=== PATIENT | male | born 1950 | race Caucasian/White ===

== ENCOUNTER 2016-05-17 11:21 | Emergency (ER) | payer MEDICARE ==
[~2016-05-17] VITALS: Ht 165.1 cm; Wt 63.5 kg
[2016-05-17] MEDS ORDERED: IPRATRPIUM/ALBUTEROL 0.5/2.5MG 3 ML NEBU. NEB ONE (12:15)
--- NOTE | 2016-05-17 12:19 | RAD ---
Portable chest, 05/18/1999 713: History: Cough, shortness of breath, chest pain Comparison is made to a study from 03/13/2008. The heart size and pulmonary vascularity are normal. There is calcific plaquing of the aorta. No pulmonary infiltrates are seen. There is no evidence of pleural fluid. IMPRESSION: No acute cardiopulmonary abnormality is detected.
[2016-05-17 12:22] LABS: BASO % 0 % (0-3); EOS % 7 % (0-3); HEMATOCRIT 53.6 % (39.0-53.0); HEMOGLOBIN 17.8 g/dL (13.0-17.5); LYMPH # 3.4 x10^3/uL (1.0-4.8); LYMPH % 36 % (24-48); MEAN CORPUSCULAR HEMOGLOBIN 29 pg (25-35); MEAN CORPUSCULAR HGB CONC 33 g/dL (31-37); MEAN CORPUSCULAR VOLUME 89 fL (79-100); MONO % 10 % (0-9); NEUT % 48 % (31-73); PLATELET COUNT 263 x10^3/uL (140-400); RED BLOOD COUNT 6.05 x10^6/uL (4.30-5.70); RED CELL DISTRIBUTION WIDTH 14.7 % (11.5-14.5); WHITE BLOOD COUNT 9.6 x10^3/uL (4.0-11.0)
[2016-05-17 12:30] VITALS: BP 161/78
[2016-05-17] MEDS ORDERED: PREDNISONE 20 MG TABLET PO ONE (12:30)
[2016-05-17 12:35] LABS: CALCIUM 9.4 mg/dL (8.5-10.1); CREATININE 0.8 mg/dL (0.7-1.3); GFR 96.4; POTASSIUM 4.7 mmol/L (3.5-5.1)
[2016-05-17 12:40] LABS: ALBUMIN 3.6 g/dL (3.4-5.0); DIRECT BILIRUBIN 0.1 mg/dL (0.0-0.2); TOTAL BILIRUBIN 0.4 mg/dL (0.2-1.0)
[2016-05-17] MEDS ORDERED: PRED50TA PO (13:02)
--- NOTE | 2016-05-17 13:02 | PHYS DOC ---
Past Medical History Past Medical History: COPD, High Cholesterol, Hypertension Past Surgical History: Other Additional Past Surgical Histo: stent in L leg Alcohol Use: None Drug Use: None Adult General Chief Complaint Chief Complaint: SHORTNESS OF BREATH HPI HPI 65-year-old male presenting to the emergency department today with shortness of breath. Severe present for approximately 2-3 weeks however has worsened over the last 2-3 days. He has been trying his albuterol at home with mild relief. It is worse with exertion. Associated with changing of the weather. He denies having chest pain currently however has had intermittent chest pain over the past 2 days. It is sharp and worse with coughing. Nonradiating. Review of systems is negative for abdominal pain nausea vomiting diaphoresis. All other review of systems is negative unless otherwise noted in history of present illness. Review of Systems Review of Systems SEE ABOVE. Current Medications Current Medications Current Medications Medications (Trade) Dose Ordered Sig/Wiliam Start Time Stop Time Status Last Admin Dose Admin Albuterol/ Ipratropium (Duoneb) 3 ml 1X ONCE 05/17/16 12:15 05/17/16 12:16 DC 05/17/16 12:17 3 ML Prednisone (Prednisone) 50 mg 1X ONCE 05/17/16 12:30 05/17/16 12:31 DC 05/17/16 12:30 50 MG Allergies Allergies Allergies Uncoded Allergies Type Severity Reaction Last Updated Verified some sinus medicine Allergy Severe "stopped breathing" 05/17/16 Physical Exam Physical Exam Constitutional: Well developed, well nourished, no acute distress, non-toxic appearance. HENT: Normocephalic, atraumatic, bilateral external ears normal, oropharynx moist, no oral exudates, nose normal. [] Eyes: PERRLA, EOMI, conjunctiva normal, no discharge. Neck: Normal range of motion, no tenderness, supple, no stridor. [] Cardiovascular:Heart rate regular rhythm, no murmur [] Lungs & Thorax: Wheezing bilaterally with a prolonged expiratory phase. No crackles. Abdomen: Bowel sounds normal, soft, no tenderness, no masses, no pulsatile masses. Skin: Warm, dry, no erythema, no rash. [] Back: No tenderness, no CVA tenderness. [] Extremities: No tenderness, no cyanosis, no clubbing, ROM intact, no edema. Neurologic: Alert and oriented X 3, normal motor function, normal sensory function, no focal deficits noted. Psychologic: Affect normal, judgement normal, mood normal. [] Current Patient Data Vital Signs Vital Signs Date Time Temp Pulse Resp B/P Pulse Ox O2 Delivery O2 Flow Rate FiO2 05/17/16 12:30 76 20 161/78 94 Room Air 05/17/16 11:27 97.9 97.9 Lab Values Laboratory Tests Test 05/17/16 12:11 White Blood Count 9.6x10^3/uL (4.0-11.0) Red Blood Count 6.05x10^6/uL (4.30-5.70) H Hemoglobin 17.8g/dL (13.0-17.5) H Hematocrit 53.6% (39.0-53.0) H Mean Corpuscular Volume 89fL (79-100) Mean Corpuscular Hemoglobin 29pg (25-35) Mean Corpuscular Hemoglobin Concent 33g/dL (31-37) Red Cell Distribution Width 14.7% (11.5-14.5) H Platelet Count 263x10^3/uL (140-400) Neutrophils (%) (Auto) 48% (31-73) Lymphocytes (%) (Auto) 36% (24-48) Monocytes (%) (Auto) 10% (0-9) H Eosinophils (%) (Auto) 7% (0-3) H Basophils (%) (Auto) 0% (0-3) Neutrophils # (Auto) 4.6x10^3uL (1.8-7.7) Lymphocytes # (Auto) 3.4x10^3/uL (1.0-4.8) Monocytes # (Auto) 0.9x10^3/uL (0.0-1.1) Eosinophils # (Auto) 0.7x10^3/uL (0.0-0.7) Basophils # (Auto) 0.0x10^3/uL (0.0-0.2) Sodium Level 142mmol/L (136-145) Potassium Level 4.7mmol/L (3.5-5.1) Chloride Level 103mmol/L (98-107) Carbon Dioxide Level 32mmol/L (21-32) Anion Gap 7 (6-14) Blood Urea Nitrogen 21mg/dL (8-26) Creatinine 0.8mg/dL (0.7-1.3) Estimated GFR (Cockcroft-Gault) 96.4 Glucose Level 94mg/dL (70-99) Calcium Level 9.4mg/dL (8.5-10.1) Total Bilirubin 0.4mg/dL (0.2-1.0) Direct Bilirubin 0.1mg/dL (0.0-0.2) Aspartate Amino Transferase (AST) 30U/L (15-37) Alanine Aminotransferase (ALT) 29U/L (16-63) Alkaline Phosphatase 73U/L (46-116) Troponin I Quantitative < 0.017ng/mL (0.000-0.055) QG-Eoq-Z-Type Natriuretic Peptide 24pg/mL (0-124) Total Protein 7.0g/dL (6.4-8.2) Albumin 3.6g/dL (3.4-5.0) Lipase 123U/L (73-393) Laboratory Tests 05/17/16 12:11 Laboratory Tests 05/17/16 12:11 EKG EKG []EKG shows sinus rhythm with regular rate. Normal intervals. Normal axis. ST segments are congruent. Not suggestive of ACS. Reviewed by myself. Radiology/Procedures Radiology/Procedures [] Course & Med Decision Making Course & Med Decision Making Pertinent Labs and Imaging studies reviewed. (See chart for details) [] 65-year-old male presenting to the emergency department with shortness of breath signs and symptoms suggestive of COPD exacerbation. Initially the patient 's vital signs afebrile. Otherwise unremarkable other than mild hypertension. Pertinent physical exam shows wheezing bilaterally with prolonged expiratory phase. The patient was given duo nebs in the emergency department. On reevaluation the patient had improved significantly. He was also given oral prednisone in the emergency department. He was subsequent discharged home with a small burst of prednisone to follow-up with his PCP over the next 2-3 days. Dragon Disclaimer Dragon Disclaimer This electronic medical record was generated, in whole or in part, using a voice recognition dictation system. Departure Departure Impression: Primary Impression: COPD exacerbation Disposition: HOME, SELF-CARE Condition: STABLE Referrals: NO PCP (PCP) TAMEKA WEBER MD Patient Instructions: Chronic Obstructive Pulmonary Disease Exacerbation Additional Instructions: Thank you for allowing us to participate in your care today. Followup with your primary care physician in 3 days if your symptoms do not improve. If you do not have a primary care provider you can ask for a list of our primary care providers. Return to the emergency department you have any new or concerning findings. This should be evaluated by the primary care physician and any necessary consulting services for continued management within a few days after discharge. Return to emergency room if you have any new or concerning symptoms including but not limited to fever, chills, nausea, vomiting, intractable pain, any new rashes, chest pain, shortness of air, uncontrolled bleeding, difficulty breathing, and/or vision loss. Scripts Prednisone 50 Mg [id number] Mg PO DAILY #5 TAB Prov:DAMI MORRIS MD 05/17/16 DAMI MORRIS MD May 17, 2016 13:02
--- NOTE | 2016-05-17 14:23 | EKG ---
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
== END 2016-05-17 13:09 | disposition home or self-care (01) ==
LOC: ER 11:21
DX: J44.1 Chronic obstructive pulmonary disease with (acute) exacerbation (principal); E78.00 Pure hypercholesterolemia, unspecified; I10 Essential (primary) hypertension; Z88.8 Allergy status to other drugs, medicaments and biological substances
CPT/HCPCS: 36415; 71010; 80048; 80076; 83690; 83880; 84484; 85027; 93005; 94250; 94640; 99285; J7512; J7620

== ENCOUNTER 2016-05-25 18:26 | Emergency (ER) | payer MEDICARE ==
[~2016-05-25] VITALS: Ht 165.1 cm; Wt 65.8 kg
[~2016-05-25 18:26] MED LIST: PRED50TA PO
[2016-05-25 18:45] VITALS: BP 143/87
--- NOTE | 2016-05-25 19:06 | PHYS DOC ---
Past Medical History Past Medical History: COPD, High Cholesterol, Hypertension Past Surgical History: Other Additional Past Surgical Histo: stent in L leg Alcohol Use: None Drug Use: None Adult General Chief Complaint Chief Complaint: LACERATION/AVULSION HPI HPI Patient is a 65 year old male who presents emergency Department with complaint of a laceration to his left hand by slab grinder that occurred approximately 2 hours prior to arrival. Patient denies any additional injuries at this time. He does not remember the last time he had a tetanus shot. Of incidental note, patient is a smoker. He has a history of COPD. He states that he should be on oxygen at home but ran out of oxygen. He states that his primary care doctor used to be [facility] but he has not gone back to her for quite some time. Patient was seen here last week with problems with COPD. He states that he just continues to smoke he denies been advised not to. As far as patient's left hand is concerned, he denies any numbness or tingling. Review of Systems Review of Systems Constitutional: Denies fever or chills [] Eyes: Denies change in visual acuity, redness, or eye pain [] HENT: Denies nasal congestion or sore throat [] Respiratory: Denies cough or shortness of breath [] Cardiovascular: No additional information not addressed in HPI [] GI: Denies abdominal pain, nausea, vomiting, bloody stools or diarrhea [] : Denies dysuria or hematuria [] Musculoskeletal: Denies back pain or joint pain [] Integument: Denies rash or skin lesions [] Neurologic: Denies headache, focal weakness or sensory changes [] Endocrine: Denies polyuria or polydipsia [] Current Medications Current Medications Current Medications Medications (Trade) Dose Ordered Sig/Wiliam Start Time Stop Time Status Last Admin Dose Admin Albuterol/ Ipratropium (Duoneb) 3 ml 1X ONCE 05/25/16 19:15 05/25/16 19:16 DC 05/25/16 19:17 3 ML Diphtheria/ Tetanus/Acell Pertussis (Boostrix) 0.5 ml ONCE ONCE 05/25/16 19:15 05/25/16 19:16 DC 05/25/16 19:12 0.5 ML Lidocaine/Sodium Bicarbonate (Buffered Lidocaine 1%) 20 ml 1X ONCE 05/25/16 19:15 05/25/16 19:16 DC 05/25/16 19:09 20 ML Prednisone (Prednisone) 50 mg 1X ONCE 05/25/16 19:15 05/25/16 19:16 DC 05/25/16 19:10 50 MG Allergies Allergies Allergies Uncoded Allergies Type Severity Reaction Last Updated Verified some sinus medicine Allergy Severe "stopped breathing" 05/17/16 Physical Exam Physical Exam Constitutional: Well developed, well nourished, no acute distress, non-toxic appearance. [] HENT: Normocephalic, atraumatic, bilateral external ears normal, oropharynx moist, no oral exudates, nose normal. [] Eyes: PERRLA, EOMI, conjunctiva normal, no discharge. [] Neck: Normal range of motion, no tenderness, supple, no stridor. [] Cardiovascular:Heart rate regular rhythm, no murmur [] Lungs & Thorax: Patient shows no evidence of respiratory fatigue. He is able speak in full sentences. He is on oxygen at this time with an SaO2 of 96%. Patient has coarse wheezing in all lung kong. Patient's physical habitus is consistent with someone that has COPD. He smells of cigarette smoke. Abdomen: Bowel sounds normal, soft, no tenderness, no masses, no pulsatile masses. [] Skin: Warm, dry, no erythema, no rash. [] Back: No tenderness, no CVA tenderness. [] Extremities: Left hand with a regular approximately 4 cm laceration to the dorsum that extends into the subcutaneous tissue. There appears to be a superficial extensor tendon that was lacerated as well. Patient is able to extend all 5 of his fingers. He is able to flex all 5 of his fingers at both the PIPJ and DIPJ. There is no active bleeding at this time. Patient reports he does have good sensation to all 5 fingers. Neurologic: Alert and oriented X 3, normal motor function, normal sensory function, no focal deficits noted. [] Psychologic: Affect normal, judgement normal, mood normal. [] Current Patient Data Vital Signs Vital Signs Date Time Temp Pulse Resp B/P Pulse Ox O2 Delivery O2 Flow Rate FiO2 05/25/16 19:25 94 05/25/16 18:45 98.0 91 16 Room Air 98.0 EKG EKG [] Radiology/Procedures Radiology/Procedures Procedure note: 4.5 cm laceration to the dorsum of left hand was anesthetized with buffered 1% lidocaine. Wound was cleansed with Betadine solution and rinsed with copious amounts of saline. Wound was explored for foreign bodies. No foreign bodies were found. Again, there appears to be an extensor tendon the mid and lacerated. However, patient is able to extend his fingers at all PIP and DIPJ's without any difficulty. Wound margins were approximated utilizing 4- O nylon in a simple interrupted fashion of Singler closure. Patient tolerated this procedure well. Course & Med Decision Making Course & Med Decision Making Patient was reevaluated by me post nebulizer treatment. His wheezing had subsided significantly and states that he feels much better after the breathing treatment. We discussed smoking cessation. Patient demonstrates no desire to stop smoking. Patient verbalizes understanding of his need to follow-up with an orthopedic doctor to address the tendon laceration on the back of his hand. I doubt patient will do so. Overall, he does not seem very motivated to care for himself. Dragon Disclaimer Dragon Disclaimer This electronic medical record was generated, in whole or in part, using a voice recognition dictation system. Departure Departure Impression: Primary Impression: COPD exacerbation Additional Impressions: Tendon laceration Laceration of left hand Disposition: HOME, SELF-CARE Condition: IMPROVED Referrals: NO PCP (PCP) SARA FERREIRA MD Patient Instructions: Chronic Obstructive Pulmonary Disease Exacerbation, Easy- to-Read, Laceration Care, Adult, [id number], Smoking Cessation, Tips For Success, Smoking, You Can Quit, [id number], Tendon Injury Additional Instructions: 1. Take the medications as prescribed. Use your nebulizer at home every 6 hours as needed for shortness of breath and wheezing. 2. Review the discharge instructions provided for self-care and reasons to return to the emergency department. 3. Call the orthopedic doctors number listed in this paperwork to schedule follow-up appointment to address your tendon injury. If you choose not to do so , then the stitches need to be removed in 10 days. 4. Use the pamphlet provided for assistance in finding a primary care doctor to address your medical concerns. Scripts Hydrocodone/Apap 5-325 ([place] 5-325 Tablet)1 Each Tablet1 Tab PO PRN Q6HRS PRN PAIN #10 TAB Ref 0 Prov:ALEKSANDRA HERNANDEZ 05/25/16 Prednisone 10 Mg [id number] Mg PO UD PREDNISONE TAPER #39 TAB Ref 0 Take 3 tablets by mouth twice a day for 3 days, then take 2 tablets by mouth twice a day for 3 days, then take 1 tablet by mouth twice a day for 3 days, then take 1 tablet by mouth daily x 3 days, then stop. Prov:ALEKSANDRA HERNANDEZ 05/25/16 Cephalexin 500 Mg Capsule1 Cap PO TID #30 CAP Prov:ALEKSANDRA HERNANDEZ 05/25/16 Problem Qualifiers ALEKSANDRA HERNANDEZ May 25, 2016 19:06
[2016-05-25] MEDS ORDERED: DIPHTH,PERTUSS(ACELL),TET TOX 0.5 ML DISP.SYRIN. VAX IM ONE (19:15)
[2016-05-25] MEDS ORDERED: PREDNISONE 10 MG TABLET PO ONE (19:15)
[2016-05-25] MEDS ORDERED: LIDOCAINE 1% / SOD BICARB 8.4% 20 ML VIAL. IJ ONE (19:15)
[2016-05-25] MEDS ORDERED: IPRATRPIUM/ALBUTEROL 0.5/2.5MG 3 ML NEBU. NEB ONE (19:15)
[2016-05-25] MEDS ORDERED: CEPH500C PO (20:08)
[2016-05-25] MEDS ORDERED: HYDR-971 PO (20:08)
[2016-05-25] MEDS ORDERED: PRED-220 PO (20:08)
== END 2016-05-25 20:19 | disposition home or self-care (01) ==
LOC: ER 18:26
DX: S66.922A Laceration of unspecified muscle, fascia and tendon at wrist and hand level, left hand, initial encounter (principal); J44.1 Chronic obstructive pulmonary disease with (acute) exacerbation; I10 Essential (primary) hypertension; E78.00 Pure hypercholesterolemia, unspecified; F17.200 Nicotine dependence, unspecified, uncomplicated; Z99.81 Dependence on supplemental oxygen; Z88.8 Allergy status to other drugs, medicaments and biological substances; W26.8XXA Contact with other sharp object(s), not elsewhere classified, initial encounter; Y93.89 Activity, other specified; Y92.89 Other specified places as the place of occurrence of the external cause; Y99.8 Other external cause status
CPT/HCPCS: 12002; 90471; 90715; 94640; 99284; J7512; J7620

== ENCOUNTER 2016-06-17 04:54 | Emergency (ER) | payer MEDICARE ==
[~2016-06-17] VITALS: Ht 175.3 cm; Wt 65.8 kg
[~2016-06-17 04:54] MED LIST changes: +CEPH500C PO; +HYDR-971 PO; +PRED-220 PO
[2016-06-17 05:00] VITALS: BP 170/84
[2016-06-17 05:27] LABS: BASO # 0.1 x10^3/uL (0.0-0.2); BASO % 1 % (0-3); EOS % 5 % (0-3); HEMATOCRIT 46.3 % (39.0-53.0); HEMOGLOBIN 15.7 g/dL (13.0-17.5); LYMPH # 3.3 x10^3/uL (1.0-4.8); LYMPH % 29 % (24-48); MEAN CORPUSCULAR HEMOGLOBIN 30 pg (25-35); MEAN CORPUSCULAR HGB CONC 34 g/dL (31-37); MEAN CORPUSCULAR VOLUME 89 fL (79-100); MONO % 7 % (0-9); NEUT % 59 % (31-73); PLATELET COUNT 245 x10^3/uL (140-400); RED BLOOD COUNT 5.23 x10^6/uL (4.30-5.70); RED CELL DISTRIBUTION WIDTH 15.3 % (11.5-14.5); WHITE BLOOD COUNT 11.7 x10^3/uL (4.0-11.0)
[2016-06-17 05:36] LABS: CALCIUM 8.7 mg/dL (8.5-10.1); CREATININE 0.9 mg/dL (0.7-1.3); GFR 83.9; POTASSIUM 3.8 mmol/L (3.5-5.1)
[2016-06-17] MEDS ORDERED: IPRATRPIUM/ALBUTEROL 0.5/2.5MG 3 ML NEBU. NEB ONE ×2 (05:45)
[2016-06-17] MEDS ORDERED: methylPREDNISolone SOD SUCC PF 125 MG/2 ML VIAL. IV ONE (05:45)
[2016-06-17] MEDS ORDERED: PRED50TA PO (06:12)
[2016-06-17] MEDS ORDERED: PROAIR HFA8.5 GM INH (06:12)
--- NOTE | 2016-06-17 06:12 | PHYS DOC ---
Past Medical History Past Medical History: COPD, High Cholesterol, Hypertension Past Surgical History: Other Additional Past Surgical Histo: stent in L leg Alcohol Use: None Drug Use: None Adult General Chief Complaint Chief Complaint: SHORTNESS OF BREATH HPI HPI 66-year-old male who's having worsening shortness breath for the last month who states it worsened tonight. He states his symptoms are worse when he is asleep and he has awoken multiple times short of air. He denies any chest pain. He does state he has history of COPD but is currently not taking any medications. He does not have a primary care doctor. He states he smokes a pack a day. Review of Systems Review of Systems Constitutional: Denies fever or chills [] Eyes: Denies change in visual acuity, redness, or eye pain [] HENT: Denies nasal congestion or sore throat [] Respiratory: Denies cough, has shortness of breath [] Cardiovascular: No additional information not addressed in HPI [] GI: Denies abdominal pain, nausea, vomiting, bloody stools or diarrhea [] : Denies dysuria or hematuria [] Musculoskeletal: Denies back pain or joint pain [] Integument: Denies rash or skin lesions [] Neurologic: Denies headache, focal weakness or sensory changes [] Endocrine: Denies polyuria or polydipsia [] Current Medications Current Medications Current Medications Medications (Trade) Dose Ordered Sig/Wiliam Start Time Stop Time Status Last Admin Dose Admin Albuterol/ Ipratropium (Duoneb) 3 ml 1X ONCE 06/17/16 05:45 06/17/16 05:46 DC 06/17/16 05:44 3 ML Methylprednisolone Sodium Succinate (Solu-Medrol 125mg Vial) 125 mg 1X ONCE 06/17/16 05:45 06/17/16 05:46 DC 06/17/16 05:43 125 MG Allergies Allergies Allergies Uncoded Allergies Type Severity Reaction Last Updated Verified some sinus medicine Allergy Severe "stopped breathing" 05/17/16 Physical Exam Physical Exam Constitutional: Well developed, well nourished, no acute distress, non-toxic appearance. [] HENT: Normocephalic, atraumatic, bilateral external ears normal, oropharynx moist, no oral exudates, nose normal. [] Eyes: PERRLA, EOMI, conjunctiva normal, no discharge. [] Neck: Normal range of motion, no tenderness, supple, no stridor. [] Cardiovascular:Heart rate regular rhythm, no murmur [] Lungs & Thorax: Slight expiratory wheezing bilaterally with no acute respiratory distress [] Abdomen: Bowel sounds normal, soft, no tenderness, no masses, no pulsatile masses. [] Skin: Warm, dry, no erythema, no rash. [] Back: No tenderness, no CVA tenderness. [] Extremities: No tenderness, no cyanosis, no clubbing, ROM intact, no edema. [] Neurologic: Alert and oriented X 3, normal motor function, normal sensory function, no focal deficits noted. [] Psychologic: Affect normal, judgement normal, mood normal. [] Current Patient Data Vital Signs Vital Signs Date Time Temp Pulse Resp B/P Pulse Ox O2 Delivery O2 Flow Rate FiO2 06/17/16 05:48 94 Room Air 06/17/16 05:00 97.8 87 22 170/84 97.8 Lab Values Laboratory Tests Test 06/17/16 05:15 White Blood Count 11.7x10^3/uL (4.0-11.0) H Red Blood Count 5.23x10^6/uL (4.30-5.70) Hemoglobin 15.7g/dL (13.0-17.5) Hematocrit 46.3% (39.0-53.0) Mean Corpuscular Volume 89fL (79-100) Mean Corpuscular Hemoglobin 30pg (25-35) Mean Corpuscular Hemoglobin Concent 34g/dL (31-37) Red Cell Distribution Width 15.3% (11.5-14.5) H Platelet Count 245x10^3/uL (140-400) Neutrophils (%) (Auto) 59% (31-73) Lymphocytes (%) (Auto) 29% (24-48) Monocytes (%) (Auto) 7% (0-9) Eosinophils (%) (Auto) 5% (0-3) H Basophils (%) (Auto) 1% (0-3) Neutrophils # (Auto) 6.9x10^3uL (1.8-7.7) Lymphocytes # (Auto) 3.3x10^3/uL (1.0-4.8) Monocytes # (Auto) 0.8x10^3/uL (0.0-1.1) Eosinophils # (Auto) 0.5x10^3/uL (0.0-0.7) Basophils # (Auto) 0.1x10^3/uL (0.0-0.2) Sodium Level 145mmol/L (136-145) Potassium Level 3.8mmol/L (3.5-5.1) Chloride Level 105mmol/L (98-107) Carbon Dioxide Level 34mmol/L (21-32) H Anion Gap 6 (6-14) Blood Urea Nitrogen 27mg/dL (8-26) H Creatinine 0.9mg/dL (0.7-1.3) Estimated GFR (Cockcroft-Gault) 83.9 Glucose Level 129mg/dL (70-99) H Calcium Level 8.7mg/dL (8.5-10.1) Troponin I Quantitative < 0.017ng/mL (0.000-0.055) Laboratory Tests 06/17/16 05:15 Laboratory Tests 06/17/16 05:15 EKG EKG EKG as interpreted by me shows a sinus rhythm with rate of 64 bpm. There are no acute ST findings. Intervals are normal. Radiology/Procedures Radiology/Procedures One view of the chest as interpreted by me shows what appears to be COPD changes but no acute findings. Course & Med Decision Making Course & Med Decision Making Pertinent Labs and Imaging studies reviewed. (See chart for details) This 66-year-old male who's having worsening of his COPD was given multiple breathing treatments and a dose of Solu-Medrol with complete improvement of his symptoms. Patient was always saturating in the mid upper 90s on room air with no distress. A prescription for prednisone and albuterol inhaler was provided with instruction to begin smoking cessation and to follow up closely with a primary care doctor. His laboratory workup was unremarkable. Instructions to follow up with a primary doctor were provided. Dragon Disclaimer Dragon Disclaimer This electronic medical record was generated, in whole or in part, using a voice recognition dictation system. Departure Departure Impression: Primary Impression: COPD exacerbation Disposition: 01 HOME, SELF-CARE Admitting Physician: Other Condition: STABLE Referrals: NO PCP (PCP) Patient Instructions: Chronic Obstructive Pulmonary Disease, [id number] Additional Instructions: Please follow up with your primary doctor in the next 2-3 days regarding your recent COPD exacerbation. Take your medications as described. Return to the ER if you develop any worsening of your breathing. Please decrease your amount of smoking as much as possible. Scripts Albuterol Sulfate (Proair Hfa Inhaler)8.5 Gm [id number].[id number] Puff INH PRN Q6HRS PRN SHORTNESS OF BREATH #1 INHALER Ref 0 Prov:UMA BENITES DO 06/17/16 Prednisone 50 Mg Tablet1 Tab PO DAILY #5 TAB Prov:UMA BENITES DO 06/17/16 UMA BENITES DO Jun 17, 2016 06:12
--- NOTE | 2016-06-17 06:30 | EKG ---
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
--- NOTE | 2016-06-17 08:58 | RAD ---
Indication chest pain. A single view of the chest was obtained. Comparison is made to an examination one month earlier. The heart and pulmonary vessels appear normal. The lungs are clear. There has not been a significant change when compared to the previous exam IMPRESSION: No acute or focal process seen in the chest. No significant change
== END 2016-06-17 06:18 | disposition home or self-care (01) ==
LOC: ER 04:54
DX: J44.1 Chronic obstructive pulmonary disease with (acute) exacerbation (principal); F17.200 Nicotine dependence, unspecified, uncomplicated; I10 Essential (primary) hypertension; E78.00 Pure hypercholesterolemia, unspecified
CPT/HCPCS: 36415; 71010; 80048; 84484; 85027; 93005; 94640; 96374; 99285; J2930; J7620

== ENCOUNTER 2016-07-20 06:12 | Emergency (ER) | payer MEDICARE ==
[~2016-07-20] VITALS: Ht 175.3 cm; Wt 65.8 kg
[~2016-07-20 06:12] MED LIST changes: +PROAIR HFA8.5 GM INH
[2016-07-20 06:25] VITALS: BP 171/82
[2016-07-20] MEDS ORDERED: NAPROXEN 250 MG TABLET PO ONE (06:45)
[2016-07-20] MEDS ORDERED: CEPHALEXIN 250 MG CAPSULE. PO ONE (06:45)
[2016-07-20] MEDS ORDERED: CIPROFLOXACIN HCL 250 MG TABLET. PO ONE (06:45)
--- NOTE | 2016-07-20 06:46 | ED.ADGEN ---
Past Medical History Past Medical History: COPD, High Cholesterol, Hypertension Past Surgical History: Other Additional Past Surgical Histo: stent in L leg Alcohol Use: None Drug Use: None Adult General Chief Complaint Chief Complaint: FOOT INJURY PAIN HPI HPI Patient is a 66 year old man, history of COPD, hypertension, hyperlipidemia, who presents to the emergency department complaint of left foot pain and swelling after stepping on a nail at a home improvement store 2 days ago. Patient states that he was wearing the same slippers that he is wearing now, and that the nail went through the sole of his shoe into the lateral aspect of his right foot. He states he did pull the nail out immediately. He states that he has had increased pain and swelling in the foot since that time, denies any drainage or discharge. States that he has pain with ambulation although he is able to ambulate. He has not taken anything for pain since the symptoms began. Denies any fevers or chills, any red streaking, any weakness, numbness, tingling , other injuries, chest pain, shortness of breath or other complaints. His tetanus is up-to-date, last received several months ago after a laceration to his hand. Review of Systems Review of Systems Constitutional: Denies fever or chills. [] Eyes: Denies change in visual acuity. [] HENT: Denies nasal congestion or sore throat. [] Respiratory: Denies cough or shortness of breath. [] Cardiovascular: Denies chest pain or edema. [] GI: Denies abdominal pain, nausea, vomiting, bloody stools or diarrhea. [] : Denies dysuria. [] Musculoskeletal: Denies back pain or joint pain. Pain in the lateral aspect of the left foot, and sole of the left foot. Integument: Denies rash. [] Neurologic: Denies headache, focal weakness or sensory changes. [] Endocrine: Denies polyuria or polydipsia. [] Lymphatic: Denies swollen glands. [] Psychiatric: Denies depression or anxiety. [] Current Medications Current Medications Current Medications Medications (Trade) Dose Ordered Sig/Wiliam Start Time Stop Time Status Last Admin Dose Admin Cephalexin HCl (Keflex) 500 mg 1X ONCE 07/20/16 06:45 07/20/16 06:46 DC 07/20/16 06:49 500 MG Ciprofloxacin (Cipro) 500 mg 1X ONCE 07/20/16 06:45 07/20/16 06:46 DC 07/20/16 06:49 500 MG Naproxen (Naprosyn) 250 mg 1X ONCE 07/20/16 06:45 07/20/16 06:46 DC 07/20/16 06:48 250 MG Allergies Allergies Allergies Uncoded Allergies Type Severity Reaction Last Updated Verified some sinus medicine Allergy Severe "stopped breathing" 05/17/16 Physical Exam Physical Exam Constitutional: Well developed, well nourished, no acute distress, non-toxic appearance. [] HENT: Normocephalic, atraumatic, bilateral external ears normal, oropharynx moist, no oral exudates, nose normal. [] Eyes: PERRLA, EOMI, conjunctiva normal, no discharge. [] Neck: Normal range of motion, no tenderness, supple, no stridor. [] Cardiovascular:Heart rate regular rhythm, no murmur, S1, S2, rubs or gallops. [] Lungs & Thorax: Mild scattered wheezing, no rhonchi, no rales, no chest wall tenderness or crepitus. [] Abdomen: Bowel sounds normal, soft, no tenderness, no masses, no pulsatile masses. [] Skin: Warm, dry, no erythema, no rash. [] Back: No tenderness, no CVA tenderness. [] Extremities: Tenderness to palpation over the lateral aspect of the right foot, there is no puncture wound that I can identify, feet are dirty, when cleaned, no wound identified, no significant swelling, no erythema, no streaking, no fluid collection, no cyanosis, no clubbing, ROM intact, no edema. [] Neurologic: Alert and oriented X 3, normal motor function, normal sensory function, no focal deficits noted. [] Psychologic: Affect normal, judgement normal, mood normal. [] Current Patient Data Vital Signs Vital Signs Date Time Temp Pulse Resp B/P (MAP) Pulse Ox O2 Delivery O2 Flow Rate FiO2 07/20/16 06:25 97.9 76 20 94 Room Air 97.9 EKG EKG Not indicated. [] Radiology/Procedures Radiology/Procedures Foot x-ray: Three-view: Normal soft tissue and bony examination, no evidence of foreign body, gas or fluid collection. As interpreted by me. [] Course & Med Decision Making Course & Med Decision Making Pertinent Labs and Imaging studies reviewed. (See chart for details) Patient's bilateral feet cleaned thoroughly in the emergency department, no puncture wound or evidence of active infection identified externally. X-ray does not reveal any evidence of acute bony or soft tissue normalities, no foreign bodies. However based on the patient's report, the fact it has been several days since injury with high risk potential injury, we'll cover prophylactically with antibiotics. Did discuss this with patient who is in agreement with this plan. First dose of ciprofloxacin and Keflex given in the ED , along with naproxen for discomfort. Patient was also placed in a hard shoe for additional support, as he is wearing slippers that are in poor condition. Discussed the importance of purchasing new and more supportive footwear additionally. Patient voiced understanding with this as well. He was given contact information for Dr. Bowers of podiatry, instructed to follow-up in the next 2-3 days if symptoms persist, and to return to the ED for concerning symptoms as discussed. Patient voiced understanding and agreement with plan and instructions as stated, discharged home with prescription for ciprofloxacin and Keflex, naproxen for discomfort, with plan as above. [] Dragon Disclaimer Dragon Disclaimer This electronic medical record was generated, in whole or in part, using a voice recognition dictation system. Departure Impression: Primary Impression: Foot pain, left Disposition: 01 HOME, SELF-CARE Condition: IMPROVED Scripts Naproxen (NAPROXEN) 250 Mg Tablet 250 MG PO BID Y for PAIN, #10 Prov: SAGE TEJADA DO 07/20/16 Cephalexin (KEFLEX) 500 Mg Capsule 500 MG PO QID, #28 CAP Prov: SAGE TEJADA DO 07/20/16 Ciprofloxacin Hcl (CIPRO) 500 Mg Tablet 500 MG PO BID for 7 Days, TAB 0 Refills Prov: SAGE TEJADA DO 07/20/16 SAGE TEJADA DO July 20, 2016 06:46
[2016-07-20] MEDS ORDERED: CIPR500T94 PO (06:55)
[2016-07-20] MEDS ORDERED: CEPH-264 PO (06:55)
[2016-07-20] MEDS ORDERED: NAPR250T2 PO (06:55)
--- NOTE | 2016-07-20 07:06 | RAD ---
Left foot, 3 views, 07/20/2016: History: Pain, stepped on a nail There is patchy bony demineralization. No fracture or dislocation is identified. No radiopaque foreign body is evident in the soft tissues. IMPRESSION: No acute bony abnormality is detected.
== END 2016-07-20 07:02 | disposition home or self-care (01) ==
LOC: ER 06:12
DX: M79.672 Pain in left foot (principal); J44.9 Chronic obstructive pulmonary disease, unspecified; E78.00 Pure hypercholesterolemia, unspecified; I10 Essential (primary) hypertension; E78.5 Hyperlipidemia, unspecified; Z97.8 Presence of other specified devices; W45.0XXA Nail entering through skin, initial encounter; Y93.89 Activity, other specified; Y92.009 Unspecified place in unspecified non-institutional (private) residence as the place of occurrence of the external cause; Y99.8 Other external cause status
CPT/HCPCS: 73630; 99284

== ENCOUNTER 2016-08-04 05:32 | Emergency (ER) | payer MEDICARE ==
[~2016-08-04] VITALS: Ht 165.1 cm; Wt 65.8 kg
[~2016-08-04 05:32] MED LIST changes: +CEPH-264 PO; +CIPR500T94 PO; +NAPR250T2 PO
[2016-08-04] MEDS ORDERED: IPRATRPIUM/ALBUTEROL 0.5/2.5MG 3 ML NEBU. NEB ONE (06:15)
[2016-08-04 06:37] LABS: BASO # 0.1 x10^3/uL (0.0-0.2); BASO % 1 % (0-3); EOS % 2 % (0-3); HEMATOCRIT 50.4 % (39.0-53.0); HEMOGLOBIN 16.5 g/dL (13.0-17.5); LYMPH # 5.9 x10^3/uL (1.0-4.8); LYMPH % 39 % (24-48); MEAN CORPUSCULAR HEMOGLOBIN 30 pg (25-35); MEAN CORPUSCULAR HGB CONC 33 g/dL (31-37); MEAN CORPUSCULAR VOLUME 91 fL (79-100); MONO % 7 % (0-9); NEUT % 51 % (31-73); PLATELET COUNT 309 x10^3/uL (140-400); RED BLOOD COUNT 5.55 x10^6/uL (4.30-5.70); RED CELL DISTRIBUTION WIDTH 15.6 % (11.5-14.5); WHITE BLOOD COUNT 15.4 x10^3/uL (4.0-11.0)
--- NOTE | 2016-08-04 06:41 | PHYS DOC ---
Past Medical History Past Medical History: COPD, High Cholesterol, Hypertension Past Surgical History: Other Additional Past Surgical Histo: stent in L leg Alcohol Use: None Drug Use: None Adult General Chief Complaint Chief Complaint: SHORTNESS OF BREATH HPI HPI Patient is a 66 year old male who presents with 1 week for chest pain and dyspnea after slip and fall on greasy floor. States he fell onto his front. He has bilateral anterior chest pain, worse with breathing or moving, achy, constant. Has not taken neb this morning for COPD and has some dyspnea. He denies cough, f/c, n/v, palpitations, diaphoresis, exertional symptoms, rash, back pain, headache, vision changes, numbness, tingling, weakness, dizziness. Review of Systems Review of Systems Constitutional: Denies fever or chills [] Eyes: Denies change in visual acuity, redness, or eye pain [] HENT: Denies nasal congestion or sore throat [] Respiratory: Denies cough [] Cardiovascular: No additional information not addressed in HPI [] GI: Denies abdominal pain, nausea, vomiting, bloody stools or diarrhea [] : Denies dysuria or hematuria [] Musculoskeletal: Denies back pain or joint pain [] Integument: Denies rash or skin lesions [] Neurologic: Denies headache, focal weakness or sensory changes [] Endocrine: Denies polyuria or polydipsia [] Current Medications Current Medications Current Medications Medications (Trade) Dose Ordered Sig/[facility] Start Time Stop Time Status Last Admin Dose Admin Albuterol/ Ipratropium (Duoneb) 3 ml 1X ONCE 08/04/16 06:15 08/04/16 06:16 DC 08/04/16 06:27 3 ML Ketorolac Tromethamine (Toradol) 10 mg 1X ONCE 08/04/16 07:00 08/04/16 07:01 DC Allergies Allergies Allergies Uncoded Allergies Type Severity Reaction Last Updated Verified some sinus medicine Allergy Severe "stopped breathing" 05/17/16 Physical Exam Physical Exam Constitutional: Well developed, well nourished, no acute distress, non-toxic appearance. [] HENT: Normocephalic, atraumatic, bilateral external ears normal, oropharynx moist, nose normal. [] Eyes: PERRLA, EOMI. [] Neck: Normal range of motion, supple. [] Cardiovascular:Heart rate regular rhythm [] Lungs & Thorax: Bilateral wheezing, normal respiratory effort. Has bilateral anterior chest wall tenderness with no palpable or visual abnormality [] Abdomen: Bowel sounds normal, soft, no tenderness. [] Skin: Warm, dry, no erythema, no rash. [] Back: No tenderness, no CVA tenderness. [] Extremities: No tenderness, ROM intact, no edema. [] Neurologic: Alert and oriented X 3, normal motor function, normal sensory function, no focal deficits noted. [] Psychologic: Affect normal, judgement normal, mood normal. [] Current Patient Data Vital Signs Vital Signs Date Time Temp Pulse Resp B/P (MAP) Pulse Ox O2 Delivery O2 Flow Rate FiO2 08/04/16 06:28 92 Room Air 08/04/16 05:42 97.5 81 20 173/81 (111) 97.5 Lab Values Laboratory Tests Test 08/04/16 05:46 White Blood Count 15.4 x10^3/uL (4.0-11.0) H Red Blood Count 5.55 x10^6/uL (4.30-5.70) Hemoglobin 16.5 g/dL (13.0-17.5) Hematocrit 50.4 % (39.0-53.0) Mean Corpuscular Volume 91 fL (79-100) Mean Corpuscular Hemoglobin 30 pg (25-35) Mean Corpuscular Hemoglobin Concent 33 g/dL (31-37) Red Cell Distribution Width 15.6 % (11.5-14.5) H Platelet Count 309 x10^3/uL (140-400) Neutrophils (%) (Auto) 51 % (31-73) Lymphocytes (%) (Auto) 39 % (24-48) Monocytes (%) (Auto) 7 % (0-9) Eosinophils (%) (Auto) 2 % (0-3) Basophils (%) (Auto) 1 % (0-3) Neutrophils # (Auto) 7.9 x10^3uL (1.8-7.7) H Lymphocytes # (Auto) 5.9 x10^3/uL (1.0-4.8) H Monocytes # (Auto) 1.1 x10^3/uL (0.0-1.1) Eosinophils # (Auto) 0.3 x10^3/uL (0.0-0.7) Basophils # (Auto) 0.1 x10^3/uL (0.0-0.2) Sodium Level 140 mmol/L (136-145) Potassium Level 4.2 mmol/L (3.5-5.1) Chloride Level 102 mmol/L (98-107) Carbon Dioxide Level 34 mmol/L (21-32) H Anion Gap 4 (6-14) L Blood Urea Nitrogen 29 mg/dL (8-26) H Creatinine 1.1 mg/dL (0.7-1.3) Estimated GFR (Cockcroft-Gault) 66.6 Glucose Level 95 mg/dL (70-99) Calcium Level 9.8 mg/dL (8.5-10.1) Troponin I Quantitative < 0.017 ng/mL (0.000-0.055) Laboratory Tests 08/04/16 05:46 Laboratory Tests 08/04/16 05:46 EKG EKG EKG as interpreted by me as normal sinus rhythm, rate 68, no ST-T changes, normal intervals, PAC Radiology/Procedures Radiology/Procedures Chest xray as interpreted by me with no acute cardiopulmonary disease process Course & Med Decision Making Course & Med Decision Making Pertinent Labs and Imaging studies reviewed. (See chart for details) Feeling better after meds here. Lungs CTAB. Discussed symptom management. Return precautions given. He understands and agrees with plan. Dragon Disclaimer Dragon Disclaimer This electronic medical record was generated, in whole or in part, using a voice recognition dictation system. Departure Departure Impression: Primary Impression: Chest pain Additional Impression: COPD (chronic obstructive pulmonary disease) Disposition: 01 HOME, SELF-CARE Condition: STABLE Referrals: NO PCP (PCP) Patient Instructions: Chest Contusion, [id number] Additional Instructions: Use albuterol inhaler as needed for difficulty breathing. Take Tylenol or ibuprofen as needed for moderate pain. Take tramadol as needed for severe pain. Do not drink, drive or operate heavy machinery after taking tramadol as it may make you sleepy. Follow-up with your primary care doctor within one week. Return for any concerns. Scripts Tramadol Hcl (TRAMADOL HCL) 50 Mg Tablet 1 TAB PO PRN Q6HRS Y for PAIN, #6 TAB Prov: Fady LOCKE MD 08/04/16 Albuterol Sulfate (PROAIR HFA INHALER) 8.5 Gm Hfa.aer.ad 2 PUFF INH Q4HRS Y for SHORTNESS OF BREATH, #1 INHALER 0 Refills Prov: Fady LOCKE MD 08/04/16 Problem Qualifiers Primary Impression: Chest pain Chest pain type: unspecified Qualified Codes: R07.9 - Chest pain, unspecified Additional Impression: COPD (chronic obstructive pulmonary disease) COPD type: unspecified COPD Qualified Codes: J44.9 - Chronic obstructive pulmonary disease, unspecified Fady LOCKE MD Aug 04, 2016 06:41
[2016-08-04 06:43] LABS: CALCIUM 9.8 mg/dL (8.5-10.1); CREATININE 1.1 mg/dL (0.7-1.3); GFR 66.6; POTASSIUM 4.2 mmol/L (3.5-5.1)
--- NOTE | 2016-08-04 06:53 | EKG ---
[facility] [address] [place] [address] Test Date: 2016-08-04 Test Time: 05:44:43 Pat Name: CEDRIC BARBA Department: Room: Gender: M [employer]: : 1950 Requested By: Fady LOCKE Order Number: [id number] Reading MD: Kaleigh Ramierz Measurements Intervals [place] Rate: 68 P: 104 [place]: 136 QRS: 70 QRSD: 82 T: 66 QT: 364 QTc: 391 Interpretive Statements SINUS RHYTHM ATRIAL PREMATURE COMPLEX(ES) QRS(T) CONTOUR ABNORMALITY CONSIDER ANTEROLATERAL MYOCARDIAL DAMAGE POSSIBLY ABNORMAL ECG RI6.01 Compared to ECG 06/17/2016 05:12:47 No significant changes Electronically Signed On 08-07-2016 18:43:18 CDT by Kaleigh Ramirez
[2016-08-04 07:00] VITALS: BP 145/70
[2016-08-04] MEDS ORDERED: KETOROLAC 15 MG/ML VIAL. IV ONE (07:00)
[2016-08-04] MEDS ORDERED: PROAIR HFA8.5 GM INH (07:11)
[2016-08-04] MEDS ORDERED: TRAM50TA PO (07:11)
--- NOTE | 2016-08-04 07:30 | RAD ---
Indication chest pain. Shortness of breath. PA and lateral views of the chest were obtained. Note is made of a previous examination 06/17/2016. The heart and pulmonary vessels appear normal. The lungs are clear of acute infiltrates. There is suggested mild hyperexpansion. There is no pleural fluid. There is no pneumothorax. On the lateral view, just behind the sternum, is a well-defined nodule. This was probably present on a study March 13, 2008. Follow-up imaging with CT should be considered. IMPRESSION: No acute finding in the chest. Probable stable nodule on the lateral view. See above discussion
== END 2016-08-04 07:31 | disposition home or self-care (01) ==
LOC: ER 05:32
DX: R07.89 Other chest pain (principal); J44.9 Chronic obstructive pulmonary disease, unspecified; E78.00 Pure hypercholesterolemia, unspecified; I10 Essential (primary) hypertension; Z88.8 Allergy status to other drugs, medicaments and biological substances
CPT/HCPCS: 36415; 71020; 80048; 84484; 85027; 93005; 94640; 96374; 99285; J1885; J7620

== ENCOUNTER 2016-08-14 09:42 | Inpatient (IN) | payer BC, MEDICARE ==
[~2016-08-14] VITALS: Ht 175.3 cm; Wt 64.9 kg
[~2016-08-14 09:42] MED LIST changes: +TRAM50TA PO
[2016-08-14] MEDS ORDERED: MORPHINE SULFATE 4 MG/ML DISP.SYRIN. IV/SQ PRN (10:00)
[2016-08-14] MEDS ORDERED: ALBUTEROL SULFATE 2.5 MG/3 ML NEBU. INH ONE (10:00)
[2016-08-14] MEDS ORDERED: methylPREDNISolone SOD SUCC PF 125 MG/2 ML VIAL. IV ONE (10:00)
[2016-08-14] MEDS ORDERED: IPRATRPIUM/ALBUTEROL 0.5/2.5MG 3 ML NEBU. NEB ONE (10:00)
[2016-08-14] MEDS ORDERED: ASPIRIN 325 MG TABLET PO ONE (10:00)
[2016-08-14 10:06] LABS: RED BLOOD COUNT 5.97 x10^6/uL (4.30-5.70); WHITE BLOOD COUNT 13.5 x10^3/uL (4.0-11.0)
[2016-08-14 10:07] LABS: BASO # 0.3 x10^3/uL (0.0-0.2); BASO % 2 % (0-3); EOS % 3 % (0-3); LYMPH # 3.1 x10^3/uL (1.0-4.8); LYMPH % 23 % (24-48); MEAN CORPUSCULAR HEMOGLOBIN 30 pg (25-35); MEAN CORPUSCULAR HGB CONC 33 g/dL (31-37); MEAN CORPUSCULAR VOLUME 91 fL (79-100); MONO % 7 % (0-9); NEUT % 65 % (31-73); PLATELET COUNT 312 x10^3/uL (140-400); RED CELL DISTRIBUTION WIDTH 15.5 % (11.5-14.5)
--- NOTE | 2016-08-14 10:09 | RAD ---
EXAM: Chest one view. HISTORY: Chest pain. COMPARISON: 08/04/2016. FINDINGS: A frontal view of the chest is obtained. There are no confluent infiltrates. There is no pneumothorax or pleural effusion. The heart is not enlarged. There are atherosclerotic calcifications of the aorta. Bilateral glenohumeral osteoarthritis appears mild to moderate. There are small shrapnel fragments in the left proximal humerus. IMPRESSION: 1. No confluent infiltrates.
[2016-08-14 10:13] LABS: CALCIUM 9.2 mg/dL (8.5-10.1); GFR 74.3; POTASSIUM 5.6 mmol/L (3.5-5.1)
[2016-08-14 10:19] LABS: ALBUMIN 3.4 g/dL (3.4-5.0); TOTAL BILIRUBIN 0.3 mg/dL (0.2-1.0); TOTAL PROTEIN 6.9 g/dL (6.4-8.2)
[2016-08-14 11:11] LABS: INR 0.9 (0.8-1.1); PROTHROMBIN TIME PATIENT 11.4 SEC (11.7-14.0)
[2016-08-14 11:55] VITALS: BP 137/70
--- NOTE | 2016-08-14 12:20 | EKG ---
[facility] [address] [place] [address] Test Date: 2016-08-14 Test Time: 09:46:22 Pat Name: CEDRIC BARBA Department: Room: 260 1 Gender: M [employer]: : 1950 Requested By: JACY ANN Order Number: [id number] Reading MD: Jason Pineda Measurements Intervals [place] Rate: 95 P: 71 [place]: 138 QRS: 62 QRSD: 76 T: 65 QT: 312 QTc: 395 Interpretive Statements SINUS RHYTHM NONSPECIFIC ST-T WAVE CHANGES. RI6.01 Compared to ECG 08/04/2016 05:44:43 No significant changes Electronically Signed On 08-16-2016 10:52:28 CDT by Jason Pineda
[2016-08-14] MEDS ORDERED: ACETAMINOPHEN 325 MG TABLET. PO PRN (12:30)
[2016-08-14] MEDS ORDERED: ONDANSETRON PF 4 MG/2 ML VIAL. IV PRN (12:30)
[2016-08-14] MEDS ORDERED: NITROGLYCERIN SUBLINGUAL 0.4 MG BOTTLE OF 25. SL PRN (12:30)
[2016-08-14] MEDS ORDERED: MORPHINE SULFATE 4 MG/ML DISP.SYRIN. IV PRN (12:30)
[2016-08-14] MEDS ORDERED: IPRATRPIUM/ALBUTEROL 0.5/2.5MG 3 ML NEBU. NEB SCH (13:00)
[2016-08-14] MEDS: IV NORMAL SALINE 1000ML BAG 1,000 ML IV SCH ×2 (13:27→22:49)
[2016-08-14] MEDS ORDERED: LISI-334 PO (13:29)
[2016-08-14 15:00] VITALS: BP 118/68
--- NOTE | 2016-08-14 15:19 | PHYS DOC ---
Past Medical History Past Medical History: COPD, High Cholesterol, Hypertension Past Surgical History: Other Additional Past Surgical Histo: stent in L leg Alcohol Use: None Drug Use: None Adult General Chief Complaint Chief Complaint: CHEST PAIN HPI HPI Patient is a 66 year old male who presents with chest pain. The patient reports 1 day history of dry cough & wheezing consistent with usual COPD exacerbation, however today's symptoms differ with associated substernal chest tightness radiating to left arm. He states chest pain began while smoking outdoors. he reports associated shortness of breath, denies nausea or diaphoresis. Denies fevers/chills, lower extremity pain/swelling. History of COPD with previous hospital admission, not on home O2, denies cardiac history. Has PVD s/p peripheral stent to LE, as well as HTN. Current every day smoker. Does not have a PCP. Review of Systems Review of Systems Constitutional: Denies fever or chills Eyes: Denies change in visual acuity HENT: Denies nasal congestion or sore throat Respiratory: Reports cough & shortness of breath Cardiovascular: Reports chest pain, denies edema GI: Denies abdominal pain, nausea, vomiting, bloody stools or diarrhea Musculoskeletal: Denies back pain or joint pain Integument: Denies rash or skin lesions Neurologic: Denies headache, focal weakness or sensory changes Current Medications Current Medications Current Medications Medications (Trade) Dose Ordered Sig/Wiliam Start Time Stop Time Status Last Admin Dose Admin Albuterol Sulfate (Ventolin Neb Soln) 5 mg 1X ONCE 08/14/16 10:00 08/14/16 10:06 DC 08/14/16 10:27 5 MG Albuterol/ Ipratropium (Duoneb) 3 ml 1X ONCE 08/14/16 10:00 08/14/16 10:06 DC 08/14/16 10:28 3 ML Aspirin (Ruthy Aspirin) 325 mg 1X ONCE 08/14/16 10:00 08/14/16 10:01 DC Methylprednisolone Sodium Succinate (SOLU-Medrol 125MG VIAL) 125 mg 1X ONCE 08/14/16 10:00 08/14/16 10:06 DC 08/14/16 10:16 125 MG Morphine Sulfate 4 mg PRN Q15MIN PRN 08/14/16 10:00 08/14/16 17:06 DC 08/14/16 10:16 4 MG Allergies Allergies Allergies Uncoded Allergies Type Severity Reaction Last Updated Verified some sinus medicine Allergy Severe "stopped breathing" 05/17/16 Physical Exam Physical Exam Constitutional: Well developed, well nourished, no acute distress, non-toxic appearance. HENT: Normocephalic, atraumatic, bilateral external ears normal, oropharynx moist, nose normal. Eyes: conjunctiva normal, no discharge. Neck: supple, no stridor. Cardiovascular: RRR, no murmurs, no edema. Lungs & Thorax: coarse throughout with expiratory wheezing, increased work of breathing, breath sounds present in all lung kong, no respiratory distress, no reproducible tenderness with palpation over anterior chest wall.. Abdomen: soft, nontender, nondistended. Skin: Warm, dry, no erythema, no rash. Back: No tenderness. Extremities: No tenderness, no edema. no calf tenderness or swelling. Neurologic: Alert and oriented X 3, no focal deficits noted. Psychologic: Affect normal, judgement normal, mood normal. Current Patient Data Vital Signs Vital Signs Date Time Temp Pulse Resp B/P (MAP) Pulse Ox O2 Delivery O2 Flow Rate FiO2 08/14/16 10:42 Room Air 08/14/16 10:30 95 08/14/16 10:17 82 20 119/78 (92) 08/14/16 09:49 97.6 97.6 Lab Values Laboratory Tests Test 08/14/16 09:48 White Blood Count 13.5 x10^3/uL (4.0-11.0) H Red Blood Count 5.97 x10^6/uL (4.30-5.70) H Hemoglobin 18.0 g/dL (13.0-17.5) H Hematocrit 54.0 % (39.0-53.0) H Mean Corpuscular Volume 91 fL (79-100) Mean Corpuscular Hemoglobin 30 pg (25-35) Mean Corpuscular Hemoglobin Concent 33 g/dL (31-37) Red Cell Distribution Width 15.5 % (11.5-14.5) H Platelet Count 312 x10^3/uL (140-400) Neutrophils (%) (Auto) 65 % (31-73) Lymphocytes (%) (Auto) 23 % (24-48) L Monocytes (%) (Auto) 7 % (0-9) Eosinophils (%) (Auto) 3 % (0-3) Basophils (%) (Auto) 2 % (0-3) Neutrophils # (Auto) 8.8 x10^3uL (1.8-7.7) H Lymphocytes # (Auto) 3.1 x10^3/uL (1.0-4.8) Monocytes # (Auto) 0.9 x10^3/uL (0.0-1.1) Eosinophils # (Auto) 0.4 x10^3/uL (0.0-0.7) Basophils # (Auto) 0.3 x10^3/uL (0.0-0.2) H Prothrombin Time 11.4 SEC (11.7-14.0) L Prothrombin Time INR 0.9 (0.8-1.1) PTT 28 SEC (24-38) Sodium Level 142 mmol/L (136-145) Potassium Level 5.6 mmol/L (3.5-5.1) H Chloride Level 104 mmol/L (98-107) Carbon Dioxide Level 30 mmol/L (21-32) Anion Gap 8 (6-14) Blood Urea Nitrogen 31 mg/dL (8-26) H Creatinine 1.0 mg/dL (0.7-1.3) Estimated GFR (Cockcroft-Gault) 74.3 BUN/Creatinine Ratio 31 (6-20) H Glucose Level 82 mg/dL (70-99) Calcium Level 9.2 mg/dL (8.5-10.1) Total Bilirubin 0.3 mg/dL (0.2-1.0) Aspartate Amino Transferase (AST) 44 U/L (15-37) H Alanine Aminotransferase (ALT) 38 U/L (16-63) Alkaline Phosphatase 97 U/L (46-116) Troponin I Quantitative < 0.017 ng/mL (0.000-0.055) UK-Xlt-P-Type Natriuretic Peptide 17 pg/mL (0-124) Total Protein 6.9 g/dL (6.4-8.2) Albumin 3.4 g/dL (3.4-5.0) Albumin/Globulin Ratio 1.0 (1.0-1.7) Laboratory Tests 08/14/16 09:48 Laboratory Tests 08/14/16 09:48 EKG EKG Interpreted by me: Normal sinus rhythm rate 95, no acute ST or T wave changes, normal intervals, no ectopy. [] Radiology/Procedures Radiology/Procedures PROCEDURE: CHEST AP ONLY EXAM: Chest one view. HISTORY: Chest pain. COMPARISON: 08/04/2016. FINDINGS: A frontal view of the chest is obtained. There are no confluent infiltrates. There is no pneumothorax or pleural effusion. The heart is not enlarged. There are atherosclerotic calcifications of the aorta. Bilateral glenohumeral osteoarthritis appears mild to moderate. There are small shrapnel fragments in the left proximal humerus. IMPRESSION: 1. No confluent infiltrates. DICTATED and SIGNED BY: TJ TORRES MD DATE: 08/14/16 1005[] Course & Med Decision Making Course & Med Decision Making Pertinent Labs and Imaging studies reviewed. (See chart for details) The patient presents with COPD exacerbation & chest pain. Gave aspirin, pain medication, solumedrol, breathing treatments. Wheezing improved but he had some persistent chest tightness. Labs & EKG show no acute cardiac or additional pulmonary process. K+ elevated, appears dehydrated, discussed with Dr. Polk, will hydrate & repeat labs. Recommended admission to the hospital for further evaluation & treatment. He agrees with plan of care. Discussed with Dr. Polk who agrees to admit to inpatient status, cardiology consult to Dr. Elmore & pulmonary consult to Dr. Farrell. The patient is admitted in stable condition. [] Dragon Disclaimer Dragon Disclaimer This electronic medical record was generated, in whole or in part, using a voice recognition dictation system. Departure Departure Impression: Primary Impression: Chest pain Additional Impressions: COPD exacerbation Hyperkalemia Disposition: ADMITTED INPATIENT Admitting Physician: Latonia Polk Condition: STABLE Referrals: NO PCP (PCP) Problem Qualifiers JACY ANN MD Aug 14, 2016 15:19
[2016-08-14] MEDS ORDERED: TIOT18CA IH (15:40)
[2016-08-14] MEDS ORDERED: LIDO:MAALOX:DONNATAL 1:1:1 15 ML SINGLE DOSE SWSW ONE (16:30)
[2016-08-14] MEDS ORDERED: BUDE10.2 IH (16:53)
[2016-08-14] MEDS ORDERED: ALBUTEROL SULFATE 2.5 MG/3 ML NEBU. NEB PRN (17:00)
[2016-08-14] MEDS ORDERED: LISINOPRIL 20 MG TABLET PO SCH (17:00)
[2016-08-14] MEDS ORDERED: NON FORMULARY ITEM (Albuterol Sulfate (Proair Hfa Inhaler) 1 PUFF) INH PRN (17:00)
--- NOTE | 2016-08-14 17:17 | PDOC1 ---
History and Physical Date of Admission Date of Admission DATE: 08/14/16 TIME: 17:08 Identification/Chief Complaint Chief Complaint chest pain, dyspnea Problems: Source Source: Chart review, Patient History of Present Illness History of Present Illness chest pain, multiple factors. he reprots that he fell 1 month ago and struck at table at work, and has had chest pain to his lower ribcage ever since. Also, chest pain after eating, he has been taking Tagamet for that with some improvement but also has some pressure pain with exertion, Past Medical History Cardiovascular: HTN, Other GI: No pertinent hx Psych: No pertinent hx Endocrine: No pertinent hx Dermatology: No pertinent hx Social History Smoke: 1 pack per day ALCOHOL: rare Drugs: None Current Medications Current Medications Current Medications Aspirin (Ruthy Aspirin) 325 mg 1X ONCE PO ; Start 08/14/16 at 10:00; Stop 08/14 at 10:01; Status DC Morphine Sulfate 4 mg PRN Q15MIN PRN IV/SQ PAIN GREATER THAN 3/10 Last administered on 08/14/16 10:16; Start 08/14/16 at 10:00; Stop 08/14/16 at 17:06 ; Status DC Albuterol Sulfate (Ventolin Neb Soln) 5 mg 1X ONCE INH Last administered on 10:27; Start 08/14/16 at 10:00; Stop 08/14/16 at 10:06; Status DC Albuterol/ Ipratropium (Duoneb) 3 ml 1X ONCE NEB Last administered on 10:28; Start 08/14/16 at 10:00; Stop 08/14/16 at 10:06; Status DC Methylprednisolone Sodium Succinate (SOLU-Medrol 125MG VIAL) 125 mg 1X ONCE IV Last administered on 08/14/16 10:16; Start 08/14/16 at 10:00; Stop 08/14/16 at 10:06; Status DC Ondansetron HCl (Zofran) 4 mg PRN Q8HRS PRN IV NAUSEA/VOMITING; Start 08/14/16 at 12:30; Stop 08/15/16 at 12:29 Morphine Sulfate 4 mg PRN Q2HR PRN IV PAIN; Start 08/14/16 at 12:30; Stop 08/15 at 12:29 Acetaminophen (Tylenol) 650 mg PRN Q4HRS PRN PO FEVER; Start 08/14/16 at 12:30 ; Stop 08/15/16 at 12:29 Nitroglycerin (Nitrostat) 0.4 mg PRN Q5MIN PRN SL CHEST PAIN; Start 08/14/16 at 12:30; Stop 08/15/16 at 12:29 Albuterol/ Ipratropium (Duoneb) 3 ml RTQID NEB ; Start 08/14/16 at 13:00; Stop 08/14/16 at 17:06; Status DC Sodium Chloride 1,000 ml @ 100 mls/hr Q10H IV Last administered on 08/14/16t 13:27; Start 08/14/16 at 12:30 Multi-Ingredient Mouthwash/Gargle (Gi Cocktail Single Dose) 15 ml 1X ONCE SWSW ; Start 08/14/16 at 16:30; Stop 08/14/16 at 16:31; Status DC Lisinopril (Prinivil) 20 mg DAILY PO ; Start 08/14/16 at 17:00 Non-Formulary Medication 1 puff PRN Q6HRS PRN INH SHORTNESS OF BREATH; Start at 17:00; Status UNV Non-Formulary Medication 2 puff BID IH ; Start 08/14/16 at 21:00; Status UNV Non-Formulary Medication 1 cap DAILY IH ; Start 08/15/16 at 09:00; Status UNV Albuterol Sulfate (Ventolin Neb Soln) 2.5 mg PRN Q6HRS PRN NEB SHORTNESS OF BREATH; Start 08/14/16 at 17:00 Albuterol/ Ipratropium (Duoneb) 3 ml RTQID NEB ; Start 08/14/16 at 20:00 Budesonide (Pulmicort) 0.5 mg RTBID NEB ; Start 08/14/16 at 20:00; Status UNV Active Scripts Active Proair Hfa Inhaler (Albuterol Sulfate) 8.5 Gm Hfa.aer.ad 1 Puff INH PRN Q6HRS PRN Reported Symbicort 160-4.5 Mcg Inhaler (Budesonide/Formoterol Fumarate) 10.2 Gm Hfa.aer.ad 2 Puff IH BID Spiriva (Tiotropium [place]) 18 Mcg Cap.w.dev 1 Cap IH DAILY Lisinopril 20 Mg Tablet 1 Tab PO DAILY Allergies Allergies: Uncoded Allergies: some sinus medicine (Allergy, Severe, "stopped breathing", 05/17/16) ROS General: YES: Fatigue, No: Chills, Night Sweats, Malaise, Appetite, Other PSYCHOLOGICAL ROS: YES: Sleep disturbances, No: Anxiety, Behavioral Disorder, Concentration difficultie, Decreased libido , Depression, Disorientation, Hallucinations, Hostility, Irritablity, Memory difficulties, Mood Swings, Obsessive thoughts Eyes: No Blurry vision, No Decreased vision, No Double vision, No Dry eyes, No Excessive tearing, No Eye Pain, No Itchy Eyes, No Loss of vision, No Photophobia , No Scotomata, No Uses contacts, No Uses glasses, No Other HEENT: YES: Heacaches, No: Visual Changes, Hearing change, Nasal congestion, Nasal discharge, Oral lesions, Sinus pain, Sore Throat, Epistaxis, Sneezing, Snoring, Tinnitus, Vertigo, Vocal changes, Other Respiratory: YES: SOB with excertion, No: Cough, Hemoptysis, Orthopnea, Pleuritic Pain, Shortness of breath, Sputum Changes, Stridor, Tachypnea, Wheezing, Other Cardiovascular: yes Chest Pain, No Palpitations, No Orthopnea, No Paroxysmal Noc. Dyspnea, No Edema, No Lt Headedness, No Other Gastrointestinal: No Nausea, No Vomiting, No Abdominal Pain, No Diarrhea, No Constipation, No Melena, No Hematochezia, No Other Genitourinary: No Dysuria, No Frequency, No Incontinence, No Hematuria, No Retention, No Discharge, No Urgency, No Pain, No Flank Pain, No Other, No , No , No , No , No , No , No Musculoskeletal: Yes Joint Pain, Yes Joint Stiffness, Yes Pain In: (bilat lower ribs), No Gait Disturbance, No Joint Swelling, No Muscle Pain, No Muscular Weakness , No Swelling In:, No Other Neurological: No Behavorial Changes, No Bowel/Bladder ControlChng, No Confusion , No Dizziness, No Gait Disturbance, No Headaches, No Impaired Coord/balance, No Memory Loss, No Numbness/Tingling, No Seizures, No Speech Problems, No Tremors, No Visual Changes, No Weakness, No Other Skin: No Dry Skin, No Eczema, No Hair Changes, No Lumps, No Mole Changes, No Mottling, No Nail Changes, No Pruritus, No Rash, No Skin Lesion Changes, No Other, No Acne Physical Exam General: Alert, Oriented X3, Cooperative HEENT: Atraumatic, PERRLA Lungs: Other (decreased vol for age, no wheeze, no rales) Heart: S1S2, no murmurs Abdomen: Normal bowel sounds, Soft Extremities: No cyanosis, No edema Skin: No breakdown Neuro: Sensation intact, Cranial nerves 3-12 NL Psych/Mental Status: Mood NL Vitals Vitals Vital Signs Date Time Temp Pulse Resp B/P (MAP) Pulse Ox O2 Delivery O2 Flow Rate FiO2 08/14/16 15:00 97.6 72 20 118/68 (85) 92 Room Air 97.6 Labs Labs Laboratory Tests Test 08/14/16 09:48 White Blood Count 13.5 x10^3/uL (4.0-11.0) Red Blood Count 5.97 x10^6/uL (4.30-5.70) Hemoglobin 18.0 g/dL (13.0-17.5) Hematocrit 54.0 % (39.0-53.0) Mean Corpuscular Volume 91 fL (79-100) Mean Corpuscular Hemoglobin 30 pg (25-35) Mean Corpuscular Hemoglobin Concent 33 g/dL (31-37) Red Cell Distribution Width 15.5 % (11.5-14.5) Platelet Count 312 x10^3/uL (140-400) Neutrophils (%) (Auto) 65 % (31-73) Lymphocytes (%) (Auto) 23 % (24-48) Monocytes (%) (Auto) 7 % (0-9) Eosinophils (%) (Auto) 3 % (0-3) Basophils (%) (Auto) 2 % (0-3) Neutrophils # (Auto) 8.8 x10^3uL (1.8-7.7) Lymphocytes # (Auto) 3.1 x10^3/uL (1.0-4.8) Monocytes # (Auto) 0.9 x10^3/uL (0.0-1.1) Eosinophils # (Auto) 0.4 x10^3/uL (0.0-0.7) Basophils # (Auto) 0.3 x10^3/uL (0.0-0.2) Prothrombin Time 11.4 SEC (11.7-14.0) Prothromb Time International Ratio 0.9 (0.8-1.1) Activated Partial Thromboplast Time 28 SEC (24-38) Sodium Level 142 mmol/L (136-145) Potassium Level 5.6 mmol/L (3.5-5.1) Chloride Level 104 mmol/L (98-107) Carbon Dioxide Level 30 mmol/L (21-32) Anion Gap 8 (6-14) Blood Urea Nitrogen 31 mg/dL (8-26) Creatinine 1.0 mg/dL (0.7-1.3) Estimated GFR (Cockcroft-Gault) 74.3 BUN/Creatinine Ratio 31 (6-20) Glucose Level 82 mg/dL (70-99) Calcium Level 9.2 mg/dL (8.5-10.1) Total Bilirubin 0.3 mg/dL (0.2-1.0) Aspartate Amino Transf (AST/SGOT) 44 U/L (15-37) Alanine Aminotransferase (ALT/SGPT) 38 U/L (16-63) Alkaline Phosphatase 97 U/L (46-116) Troponin I Quantitative < 0.017 ng/mL (0.000-0.055) VS-Klg-C-Type Natriuretic Peptide 17 pg/mL (0-124) Total Protein 6.9 g/dL (6.4-8.2) Albumin 3.4 g/dL (3.4-5.0) Albumin/Globulin Ratio 1.0 (1.0-1.7) Laboratory Tests Test 08/14/16 09:48 White Blood Count 13.5 x10^3/uL (4.0-11.0) Red Blood Count 5.97 x10^6/uL (4.30-5.70) Hemoglobin 18.0 g/dL (13.0-17.5) Hematocrit 54.0 % (39.0-53.0) Mean Corpuscular Volume 91 fL (79-100) Mean Corpuscular Hemoglobin 30 pg (25-35) Mean Corpuscular Hemoglobin Concent 33 g/dL (31-37) Red Cell Distribution Width 15.5 % (11.5-14.5) Platelet Count 312 x10^3/uL (140-400) Neutrophils (%) (Auto) 65 % (31-73) Lymphocytes (%) (Auto) 23 % (24-48) Monocytes (%) (Auto) 7 % (0-9) Eosinophils (%) (Auto) 3 % (0-3) Basophils (%) (Auto) 2 % (0-3) Neutrophils # (Auto) 8.8 x10^3uL (1.8-7.7) Lymphocytes # (Auto) 3.1 x10^3/uL (1.0-4.8) Monocytes # (Auto) 0.9 x10^3/uL (0.0-1.1) Eosinophils # (Auto) 0.4 x10^3/uL (0.0-0.7) Basophils # (Auto) 0.3 x10^3/uL (0.0-0.2) Prothrombin Time 11.4 SEC (11.7-14.0) Prothromb Time International Ratio 0.9 (0.8-1.1) Activated Partial Thromboplast Time 28 SEC (24-38) Sodium Level 142 mmol/L (136-145) Potassium Level 5.6 mmol/L (3.5-5.1) Chloride Level 104 mmol/L (98-107) Carbon Dioxide Level 30 mmol/L (21-32) Anion Gap 8 (6-14) Blood Urea Nitrogen 31 mg/dL (8-26) Creatinine 1.0 mg/dL (0.7-1.3) Estimated GFR (Cockcroft-Gault) 74.3 BUN/Creatinine Ratio 31 (6-20) Glucose Level 82 mg/dL (70-99) Calcium Level 9.2 mg/dL (8.5-10.1) Total Bilirubin 0.3 mg/dL (0.2-1.0) Aspartate Amino Transf (AST/SGOT) 44 U/L (15-37) Alanine Aminotransferase (ALT/SGPT) 38 U/L (16-63) Alkaline Phosphatase 97 U/L (46-116) Troponin I Quantitative < 0.017 ng/mL (0.000-0.055) DO-Fmb-L-Type Natriuretic Peptide 17 pg/mL (0-124) Total Protein 6.9 g/dL (6.4-8.2) Albumin 3.4 g/dL (3.4-5.0) Albumin/Globulin Ratio 1.0 (1.0-1.7) VTE Prophylaxis Ordered VTE Prophylaxis Devices: No VTE Pharmacological Prophylaxi: Yes Assessment/Plan Assessment/Plan angina, r.o Acs, prior PVD history, stent to femoral vessel left leg tobaccosim GERD likley, try GI cocktial, cont Pepcid chostochondritis, recent chest wall injury from fall, check CXR ribs 3v COPD, may be moderate disease, IV steroids given, , cont nebs, no sputum or cough, no acute bronchitis, htn, lisinopril (hold), w/ hyperkalemia, may change modality, consider rena , admt obs BECKIE PAT MD Aug 14, 2016 17:17
[2016-08-14] MEDS: ENOXAPARIN 40 MG/0.4 ML SYRINGE. SQ SCH (17:31)
[2016-08-14] MEDS: IPRATRPIUM/ALBUTEROL 0.5/2.5MG 3 ML NEBU. NEB SCH (17:35)
[2016-08-14] MEDS: BUDESONIDE 0.5 MG/2 ML NEBU. NEB SCH (17:36)
[2016-08-14 19:30] VITALS: BP 122/66
[2016-08-14] MEDS ORDERED: NICOTINE 14MG PATCH. TD PRN (20:15)
[2016-08-14] MEDS ORDERED: NICOTINE POLACRILEX 2MG GUM PACKAGE of 12. BC PRN (20:15)
[2016-08-14] MEDS: FAMOTIDINE 20 MG TABLET. PO SCH (20:42)
[2016-08-14] MEDS ORDERED: NON FORMULARY ITEM (Budesonide/Formoterol Fumarate (Symbicort 160-4.5 Mcg Inhaler) 2 PUFF) IH SCH (21:00)
[2016-08-14] MEDS: ZOLPIDEM 5 MG TABLET. PO PRN (23:08)
[2016-08-14 23:20] VITALS: BP 124/70
[2016-08-15 03:05] VITALS: BP 121/68
[2016-08-15 05:08] LABS: BASO % 0 % (0-3); EOS % 0 % (0-3); HEMATOCRIT 46.7 % (39.0-53.0); HEMOGLOBIN 15.1 g/dL (13.0-17.5); LYMPH # 0.8 x10^3/uL (1.0-4.8); LYMPH % 6 % (24-48); MEAN CORPUSCULAR HEMOGLOBIN 30 pg (25-35); MEAN CORPUSCULAR HGB CONC 32 g/dL (31-37); MEAN CORPUSCULAR VOLUME 92 fL (79-100); MONO % 2 % (0-9); NEUT % 91 % (31-73); PLATELET COUNT 258 x10^3/uL (140-400); RED BLOOD COUNT 5.08 x10^6/uL (4.30-5.70); RED CELL DISTRIBUTION WIDTH 15.4 % (11.5-14.5); WHITE BLOOD COUNT 12.1 x10^3/uL (4.0-11.0)
[2016-08-15 05:21] LABS: CALCIUM 8.5 mg/dL (8.5-10.1); CREATININE 1.1 mg/dL (0.7-1.3); GFR 66.6; POTASSIUM 4.6 mmol/L (3.5-5.1)
--- NOTE | 2016-08-15 06:13 | EKG ---
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 RI6.01 Compared to ECG 08/04/2016 05:44:43 No significant changes Electronically Signed On 08-16-2016 11:03:52 CDT by Jason Pineda
[2016-08-15 07:00] VITALS: BP 135/62
[2016-08-15] MEDS: BUDESONIDE 0.5 MG/2 ML NEBU. NEB SCH ×2 (07:56→20:01)
[2016-08-15] MEDS: IPRATRPIUM/ALBUTEROL 0.5/2.5MG 3 ML NEBU. NEB SCH ×4 (07:56→20:01)
[2016-08-15] MEDS: FAMOTIDINE 20 MG TABLET. PO SCH ×2 (08:43→20:48)
[2016-08-15] MEDS: IV NORMAL SALINE 1000ML BAG 1,000 ML IV SCH ×2 (08:46→20:47)
[2016-08-15] MEDS ORDERED: NON FORMULARY ITEM (Tiotropium Bromide (Spiriva) 1 CAP) IH SCH (09:00)
[2016-08-15] MEDS ORDERED: IV NORMAL SALINE 500ML BAG 500 ML IV ONE (09:15)
--- NOTE | 2016-08-15 09:19 | PDOC ---
Provider Note Provider Note [id number] acute resp fail ae of copd acute bronchitis see orders. GOYO BARRON MD Aug 15, 2016 09:19
[2016-08-15] MEDS: methylPREDNISolone SOD SUCC PF 40 MG/ML VIAL. IV SCH ×2 (09:27→20:48)
[2016-08-15] MEDS ORDERED: IOHEXOL 300 MG/ML 75 ML VIAL IV ONE (09:45)
[2016-08-15] MEDS ORDERED: CONTRAST GIVEN MC PRN (10:00)
--- NOTE | 2016-08-15 10:17 | CONS ---
DATE OF CONSULTATION: 08/15/2016 I was asked to see this 66-year-old gentleman for shortness of breath, wheezing, acute exacerbation of COPD. HISTORY OF PRESENT ILLNESS: He does have history of more than [id number] smoking, continues to smoke about 2 packs per day. He fell about a month ago and has not been very active since then. He has had pain in chest area. He has felt dizzy for the past couple of days. He has increased cough with sputum production and wheezing and increased shortness of breath. He has had low-grade fever. PAST MEDICAL HISTORY: COPD; hypertension; hypercholesterolemia; peripheral vascular disease, status post stent. ALLERGIES: CHLORPHENIRAMINE, PSEUDOEPHEDRINE. MEDICATIONS: Currently, he is on Pepcid, nicotine patch, lorazepam, Pulmicort, albuterol, Atrovent nebulizer, Lovenox 40 mg subcutaneous daily. SOCIAL HISTORY: History of more than [id number] smoking, continues to smoke about 2 packs per day. FAMILY HISTORY: Positive for hypertension. REVIEW OF SYSTEMS: As mentioned as above, other systems otherwise negative. PHYSICAL EXAMINATION: GENERAL: This is a well-developed gentleman. VITAL SIGNS: His O2 saturation on 2 liters of oxygen is 95%, respiratory rate 20, heart rate 68, blood pressure 135/62, temperature 98.1. HEENT: Normocephalic, atraumatic. Pupils equal, round, reactive to light. Throat is clear. Nose is clear. NECK: There is no JVD, lymphadenopathy or thyromegaly. CARDIOVASCULAR: Regular rate and rhythm. PMI is nondisplaced. CHEST: Inspection is normal. LUNGS: There is end expiratory wheezing. ABDOMEN: Soft. Bowel sounds are good. There is no mass. EXTREMITIES: There is no edema. LYMPHATICS: There is no lymphadenopathy. NEUROLOGIC: Alert and oriented. SKIN: Chronic changes. LABORATORY DATA: I reviewed the following lab data: Chest x-ray shows COPD changes. There might be infiltrate on the left lower lung area. Sodium 140, potassium 4.6, chloride 104, CO2 29, glucose 170, BUN 34, creatinine 1.1 and troponin less than 0.01. BNP 17. WBC 12.1, hemoglobin 15.1, platelets 258. IMPRESSION: 1. Acute respiratory failure, multifactorial in etiology including acute exacerbation of chronic obstructive pulmonary disease, acute bronchitis, rule out pulmonary embolism versus others. 2. Acute exacerbation of chronic obstructive pulmonary disease. 3. Acute bronchitis. 4. Status post fall. 5. Dizziness ? etiology. 6. Hypertension. 7. Tobacco habituation. 8. Hypercholesterolemia. 9. Peripheral vascular disease. PLAN AND RECOMMENDATIONS: 1. I had a long discussion with him regarding smoking cessation. I have advised him to stop smoking forever. 2. Bronchodilator. 3. Inhaled corticosteroid. 4. Add Solu-Medrol 40 mg IV b.i.d. 5. Add Rocephin. 6. I do recommend a CT angiogram. The patient's BUN is 34, creatinine is 1.1. I will give him normal saline 500 mL bolus before the CT. 7. Lovenox for DVT prophylaxis. 8. Pepcid for stress ulcer prophylaxis. 9. Monitor respiratory status very closely. 10. The findings and recommendations were discussed with the patient and RN. I have answered all of the patient's questions. He understood and agreed to proceed with the plan. Thank you very much for allowing me to participate in the care of this very nice gentleman. GOYO BARRON M.D. : SONNY/cuauhtemoc JOB#: [id number] / [id number]
--- NOTE | 2016-08-15 10:32 | ACF ---
Admission Forms Criteria COPD Clinical Indications for Admission to Inpatient Care (Place 'X' for any and all applicable criteria): Admission is indicated for ANY ONE of the following (1)(2)(3): [X]I. Acute exacerbation by high-risk comorbidity (e.g., pneumonia, dysrhythmia, heart failure, pleural effusion, pneumothorax) or severe underlying COPD (e.g., steroid dependent) [ ]II. Inpatient admission required rather than observation care (see Chronic Obstructive Pulmonary Disease: Observation Care) because of ANY ONE of the following: [ ]a) New or pre-existing signs or symptoms of COPD (eg, dyspnea or Tachypnea at rest or with minimal activity) that persist despite outpatient and observation care treatment [ ]b) New-onset hypoxemia (room air SaO2 less than 90%, PO2 less than 60 mm Hg (8.0 kPa)) that persists despite outpatient and observation care treatment [ ]c) Worsening of pre-existing hypoxemia (eg, new or increased requirement for supplemental oxygen to maintain oxygenation at baseline level) that persists despite outpatient and observation care treatment, with oxygen treatment needs performable only in acute inpatient setting [ ]d) Hypercarbia (PCO2 greater than 40 mm Hg (5.3 kPa))-induced respiratory acidosis (pH less than 7.35) that persists despite outpatient and observation care treatment [ ]e) Supplemental oxygen or respiratory treatments for over 24 hours that are performable only in acute inpatient setting [ ]f) Chest tube placement with active evacuation (e.g., suction, drainage) (5) [ ]g) Other condition, treatment or monitoring requiring inpatient admission [ ]III. Planned invasive surgical or diagnostic procedures requiring acute- care hospitalization [ ]IV. Acute respiratory failure (e.g., uncompensated hypercarbia, severe hypoxemia) [ ]V. Severe comorbid condition (e.g., severe steroid myopathy, acute vertebral fracture) that has acutely worsened pulmonary function [ ]. Confusion state, lethargy, obtundation, stupor or coma Extended stay beyond goal length of stay may be needed for (31)(32): [ ]a ) Respiratory Failure. [ ]b) Severe or persisting hypoxemia or hypercarbia [ ]c) Severe or persistent dyspnea [ ]d) Comorbidities (e.g. chronic heart failure, atrial fibrillation with rapid response, pneumonia) [ ]e) Malnutrition The original [facility] content created by [facility] has been revised. The portions of the content which have been revised are identified through the use of italic text or in bold, and [facility] has neither reviewed nor approved the modified material. All other unmodified content is copyright [facility]. Please see references footnoted in the original [facility] edition 2016 Admission Criteria Met?: Yes CHRISTY AHUJA Aug 15, 2016 10:32
[2016-08-15 11:00] VITALS: BP 120/72
--- NOTE | 2016-08-15 11:01 | RAD ---
EXAM: CT ANGIOGRAPHY OF THE CHEST WITH AND WITHOUT INTRAVENOUS CONTRAST. HISTORY: Shortness of breath, chest pain. TECHNIQUE: Computed tomographic angiography of the chest was performed before and after the intravenous administration of 75 mL Omnipaque 300. 3-D maximum intensity projections were also performed. COMPARISON: None. FINDINGS: Images of the upper abdomen reveal small cysts in the right kidney. Bone windows reveal no suspicious lesions. There are subacute fractures of the left anterior 4th through 8th ribs. No pulmonary emboli are identified. There is no aortic dissection or aneurysm. There are no pathologically enlarged mediastinal or axillary lymph nodes. There is no pleural or pericardial effusion. The heart is not enlarged. There are atherosclerotic calcifications of the coronary arteries. There is moderate to severe centrilobular emphysema. A calcified granuloma in the left upper lobe is benign. There are no acute infiltrates. IMPRESSION: 1. No pulmonary or. 2. Subacute left 4th through 8th anterior rib fractures. 3. Moderate to severe centrilobular emphysema. *One or more of the following individualized dose reduction techniques were utilized for this examination: 1. Automated exposure control. 2. Adjustment of the mA and/or kV according to patient size. 3. Use of iterative reconstruction technique.
--- NOTE | 2016-08-15 11:04 | RAD ---
EXAM: Bilateral ribs 3 views. HISTORY: Bilateral rib pain, fall. COMPARISON: Today's CT, 08/14/2016. FINDINGS: Subacute left 4th through 8th anterolateral rib fractures are better seen on today's CT. There are no displaced rib fractures bilaterally. There is a calcified granuloma in the left upper lobe. Hyperinflation indicates chronic obstructive pulmonary disease. There are small shrapnel fragments within the left humeral head. Bilateral glenohumeral osteoarthritis appears mild. There are atherosclerotic calcifications of the aorta. There is contrast material within the collecting systems from prior CT. IMPRESSION: 1. Subacute left 4th through 8th rib fractures.
--- NOTE | 2016-08-15 11:40 | PDOC2 ---
CONSULT Date of Consult Date of Consult DATE: 08/15/16 TIME: 11:40 Reason for Consult Reason for Consult: Chest pain Referring Physician Referring Physician: Dr. Polk Identification/Chief Complaint Chief Complaint Chest pain Source Source: Chart review, Patient History of Present Illness Reason for Visit: 66-year-old male presented with lower ribcage pain that has been continuous and not related to exertion since he fell down and struck table at work approximately one month ago. He denied any orthopnea/PND, palpitations or syncope. Past Medical History Cardiovascular: HTN, Other GI: No pertinent hx Psych: No pertinent hx Endocrine: No pertinent hx Dermatology: No pertinent hx Social History 1 pack per day ALCOHOL: rare Drugs: None Current Problem List Problem List Problems Medical Problems: (1) COPD exacerbation Status: Acute (2) Hyperkalemia Status: Acute Current Medications Current Medications Current Medications Aspirin (Ruthy Aspirin) 325 mg 1X ONCE PO ; Start 08/14/16 at 10:00; Stop 08/14 at 10:01; Status DC Morphine Sulfate 4 mg PRN Q15MIN PRN IV/SQ PAIN GREATER THAN 3/10 Last administered on 08/14/16 10:16; Start 08/14/16 at 10:00; Stop 08/14/16 at 17:06 ; Status DC Albuterol Sulfate (Ventolin Neb Soln) 5 mg 1X ONCE INH Last administered on 10:27; Start 08/14/16 at 10:00; Stop 08/14/16 at 10:06; Status DC Albuterol/ Ipratropium (Duoneb) 3 ml 1X ONCE NEB Last administered on 10:28; Start 08/14/16 at 10:00; Stop 08/14/16 at 10:06; Status DC Methylprednisolone Sodium Succinate (SOLU-Medrol 125MG VIAL) 125 mg 1X ONCE IV Last administered on 08/14/16 10:16; Start 08/14/16 at 10:00; Stop 08/14/16 at 10:06; Status DC Ondansetron HCl (Zofran) 4 mg PRN Q8HRS PRN IV NAUSEA/VOMITING; Start 08/14/16 at 12:30; Stop 08/15/16 at 12:29 Morphine Sulfate 4 mg PRN Q2HR PRN IV PAIN Last administered on 08/14/16 19:28 ; Start 08/14/16 at 12:30; Stop 08/15/16 at 12:29 Acetaminophen (Tylenol) 650 mg PRN Q4HRS PRN PO FEVER Last administered on 08/14 19:20; Start 08/14/16 at 12:30; Stop 08/15/16 at 12:29 Nitroglycerin (Nitrostat) 0.4 mg PRN Q5MIN PRN SL CHEST PAIN; Start 08/14/16 at 12:30; Stop 08/15/16 at 12:29 Albuterol/ Ipratropium (Duoneb) 3 ml RTQID NEB ; Start 08/14/16 at 13:00; Stop 08/14/16 at 17:06; Status DC Sodium Chloride 1,000 ml @ 100 mls/hr Q10H IV Last administered on 08/15/16 08:46; Start 08/14/16 at 12:30 Multi-Ingredient Mouthwash/Gargle (Gi Cocktail Single Dose) 15 ml 1X ONCE SWSW Last administered on 08/14/16 17:32; Start 08/14/16 at 16:30; Stop 08/14/16 at 16:31; Status DC Lisinopril (Prinivil) 20 mg DAILY PO ; Start 08/14/16 at 17:00; Stop 08/14/16 at 17:13; Status DC Non-Formulary Medication 1 puff PRN Q6HRS PRN INH SHORTNESS OF BREATH; Start at 17:00; Stop 08/14/16 at 17:09; Status DC Non-Formulary Medication 2 puff BID IH ; Start 08/14/16 at 21:00; Stop 08/14/16 at 21:00; Status DC Non-Formulary Medication 1 cap DAILY IH ; Start 08/15/16 at 09:00; Stop at 09:00; Status DC Albuterol Sulfate (Ventolin Neb Soln) 2.5 mg PRN Q6HRS PRN NEB SHORTNESS OF BREATH Last administered on 08/14/16 20:00; Start 08/14/16 at 17:00 Albuterol/ Ipratropium (Duoneb) 3 ml RTQID NEB Last administered on 08/15/16 07:56; Start 08/14/16 at 20:00 Budesonide (Pulmicort) 0.5 mg RTBID NEB Last administered on 08/15/16 07:56; Start 08/14/16 at 20:00 Enoxaparin Sodium (Lovenox Per Pharmacy Prophylaxis Dosing) 1 each PRN DAILY PRN MC SEE COMMENTS; Start 08/14/16 at 17:15 Enoxaparin Sodium (Lovenox 40mg Syringe) 40 mg Q24H SQ Last administered on 17:31; Start 08/14/16 at 18:00 Famotidine (Pepcid) 20 mg BID PO Last administered on 08/15/16 08:43; Start at 21:00 Zolpidem Tartrate (Ambien) 5 mg PRN QHS PRN PO INSOMNIA, MAY REPEAT IN 1HR Last administered on 08/14/16 23:08; Start 08/14/16 at 19:15 Lorazepam (Ativan) 1 mg PRN Q4HRS PRN IV ANXIETY / AGITATION Last administered on 08/15/16 10:43; Start 08/14/16 at 20:15 Nicotine (Nicoderm Cq 14mg) 1 patch PRN DAILY PRN TD SMOKING CESSATION Last administered on 08/14/16 20:43; Start 08/14/16 at 20:15 Nicotine Polacrilex (Nicorette Gum) 1 each PRN Q1HR PRN BC SMOKING CESSATION; Start 08/14/16 at 20:15 Methylprednisolone Sodium Succinate (SOLU-Medrol 40MG VIAL) 40 mg Q12HR IV Last administered on 08/15/16 09:27; Start 08/15/16 at 09:15 Sodium Chloride 500 ml @ 500 mls/hr 1X ONCE IV Last administered on 09:27; Start 08/15/16 at 09:15; Stop 08/15/16 at 10:14; Status DC Ceftriaxone Sodium 1 gm/ Sodium Chloride 50 ml @ 100 mls/hr Q24H IV Last administered on 08/15/16 10:39; Start 08/15/16 at 10:00 Iohexol (Omnipaque 300 Mg/ml) 75 ml 1X ONCE IV Last administered on 08/15/16 10:07; Start 08/15/16 at 09:45; Stop 08/15/16 at 09:46; Status DC Info (Do NOT chart on this entry -- for MONITORING) 1 each PRN DAILY PRN MC SEE COMMENTS; Start 08/15/16 at 10:00; Stop 08/17/16 at 09:59 Active Scripts Active Proair Hfa Inhaler (Albuterol Sulfate) 8.5 Gm Hfa.aer.ad 1 Puff INH PRN Q6HRS PRN Reported Symbicort 160-4.5 Mcg Inhaler (Budesonide/Formoterol Fumarate) 10.2 Gm Hfa.aer.ad 2 Puff IH BID Spiriva (Tiotropium [place]) 18 Mcg Cap.w.dev 1 Cap IH DAILY Lisinopril 20 Mg Tablet 1 Tab PO DAILY Allergies Allergies: Coded Allergies: chlorpheniramine (Verified Allergy, Severe, STOPPED BREATHING, 08/15/16) pseudoephedrine (Verified Allergy, Severe, STOPPED BREATHING, 08/15/16) ROS PSYCHOLOGICAL ROS: No: Hallucinations Eyes: No Loss of vision HEENT: No: Epistaxis Respiratory: No: Cough, Hemoptysis Cardiovascular: yes Chest Pain Gastrointestinal: No Nausea, No Vomiting Genitourinary: No Hematuria, No Retention Neurological: No Seizures Skin: No Rash Physical Exam General: Alert, Oriented X3 HEENT: Atraumatic, PERRLA Lungs: Clear to auscultation Heart: Regular rate Abdomen: Soft, No tenderness Extremities: No edema Neuro: Normal gait Psych/Mental Status: Mood NL Vitals VITALS Vital Signs Date Time Temp Pulse Resp B/P (MAP) Pulse Ox O2 Delivery O2 Flow Rate FiO2 08/15/16 11:00 98.1 77 20 120/72 (88) 96 Room Air 98.1 08/15/16 07:50 2.0 Labs Labs Laboratory Tests Test 08/14/16 09:48 08/14/16 18:35 08/15/16 00:30 08/15/16 03:38 White Blood Count 13.5 x10^3/uL (4.0-11.0) 12.1 x10^3/uL (4.0-11.0) Red Blood Count 5.97 x10^6/uL (4.30-5.70) 5.08 x10^6/uL (4.30-5.70) Hemoglobin 18.0 g/dL (13.0-17.5) 15.1 g/dL (13.0-17.5) Hematocrit 54.0 % (39.0-53.0) 46.7 % (39.0-53.0) Mean Corpuscular Volume 91 fL (79-100) 92 fL (79-100) Mean Corpuscular Hemoglobin 30 pg (25-35) 30 pg (25-35) Mean Corpuscular Hemoglobin Concent 33 g/dL (31-37) 32 g/dL (31-37) Red Cell Distribution Width 15.5 % (11.5-14.5) 15.4 % (11.5-14.5) Platelet Count 312 x10^3/uL (140-400) 258 x10^3/uL (140-400) Neutrophils (%) (Auto) 65 % (31-73) 91 % (31-73) Lymphocytes (%) (Auto) 23 % (24-48) 6 % (24-48) Monocytes (%) (Auto) 7 % (0-9) 2 % (0-9) Eosinophils (%) (Auto) 3 % (0-3) 0 % (0-3) Basophils (%) (Auto) 2 % (0-3) 0 % (0-3) Neutrophils # (Auto) 8.8 x10^3uL (1.8-7.7) 11.1 x10^3uL (1.8-7.7) Lymphocytes # (Auto) 3.1 x10^3/uL (1.0-4.8) 0.8 x10^3/uL (1.0-4.8) Monocytes # (Auto) 0.9 x10^3/uL (0.0-1.1) 0.2 x10^3/uL (0.0-1.1) Eosinophils # (Auto) 0.4 x10^3/uL (0.0-0.7) 0.0 x10^3/uL (0.0-0.7) Basophils # (Auto) 0.3 x10^3/uL (0.0-0.2) 0.0 x10^3/uL (0.0-0.2) Prothrombin Time 11.4 SEC (11.7-14.0) Prothromb Time International Ratio 0.9 (0.8-1.1) Activated Partial Thromboplast Time 28 SEC (24-38) Sodium Level 142 mmol/L (136-145) 140 mmol/L (136-145) Potassium Level 5.6 mmol/L (3.5-5.1) 4.6 mmol/L (3.5-5.1) Chloride Level 104 mmol/L (98-107) 104 mmol/L (98-107) Carbon Dioxide Level 30 mmol/L (21-32) 29 mmol/L (21-32) Anion Gap 8 (6-14) 7 (6-14) Blood Urea Nitrogen 31 mg/dL (8-26) 34 mg/dL (8-26) Creatinine 1.0 mg/dL (0.7-1.3) 1.1 mg/dL (0.7-1.3) Estimated GFR (Cockcroft-Gault) 74.3 66.6 BUN/Creatinine Ratio 31 (6-20) Glucose Level 82 mg/dL (70-99) 170 mg/dL (70-99) Calcium Level 9.2 mg/dL (8.5-10.1) 8.5 mg/dL (8.5-10.1) Total Bilirubin 0.3 mg/dL (0.2-1.0) Aspartate Amino Transf (AST/SGOT) 44 U/L (15-37) Alanine Aminotransferase (ALT/SGPT) 38 U/L (16-63) Alkaline Phosphatase 97 U/L (46-116) Troponin I Quantitative < 0.017 ng/mL (0.000-0.055) < 0.017 ng/mL (0.000-0.055) < 0.017 ng/mL (0.000-0.055) GB-Hdw-J-Type Natriuretic Peptide 17 pg/mL (0-124) Total Protein 6.9 g/dL (6.4-8.2) Albumin 3.4 g/dL (3.4-5.0) Albumin/Globulin Ratio 1.0 (1.0-1.7) Laboratory Tests Test 08/14/16 18:35 08/15/16 00:30 08/15/16 03:38 Troponin I Quantitative < 0.017 ng/mL (0.000-0.055) < 0.017 ng/mL (0.000-0.055) White Blood Count 12.1 x10^3/uL (4.0-11.0) Red Blood Count 5.08 x10^6/uL (4.30-5.70) Hemoglobin 15.1 g/dL (13.0-17.5) Hematocrit 46.7 % (39.0-53.0) Mean Corpuscular Volume 92 fL (79-100) Mean Corpuscular Hemoglobin 30 pg (25-35) Mean Corpuscular Hemoglobin Concent 32 g/dL (31-37) Red Cell Distribution Width 15.4 % (11.5-14.5) Platelet Count 258 x10^3/uL (140-400) Neutrophils (%) (Auto) 91 % (31-73) Lymphocytes (%) (Auto) 6 % (24-48) Monocytes (%) (Auto) 2 % (0-9) Eosinophils (%) (Auto) 0 % (0-3) Basophils (%) (Auto) 0 % (0-3) Neutrophils # (Auto) 11.1 x10^3uL (1.8-7.7) Lymphocytes # (Auto) 0.8 x10^3/uL (1.0-4.8) Monocytes # (Auto) 0.2 x10^3/uL (0.0-1.1) Eosinophils # (Auto) 0.0 x10^3/uL (0.0-0.7) Basophils # (Auto) 0.0 x10^3/uL (0.0-0.2) Sodium Level 140 mmol/L (136-145) Potassium Level 4.6 mmol/L (3.5-5.1) Chloride Level 104 mmol/L (98-107) Carbon Dioxide Level 29 mmol/L (21-32) Anion Gap 7 (6-14) Blood Urea Nitrogen 34 mg/dL (8-26) Creatinine 1.1 mg/dL (0.7-1.3) Estimated GFR (Cockcroft-Gault) 66.6 Glucose Level 170 mg/dL (70-99) Calcium Level 8.5 mg/dL (8.5-10.1) Assessment/Plan Assessment/Plan 1. Chest pain with atypical features most probably musculoskeletal in etiology. Myocardial infarction was ruled out based on cardiac enzymes and EKG. Check 2-D echo to assess LV systolic function and Lexiscan nuclear stress test to rule out ischemia. 2. Peripheral vascular disease: Status post [employer]/stent to left lower extremity, presently without any claudication symptoms. 3. Hypertension: Controlled 4. COPD: Clinically stable 5. Tobacco abuse: Advised cessation Thank you for your consultation PAULA COPELAND MD Aug 15, 2016 11:40
--- NOTE | 2016-08-15 12:26 | EKG ---
[facility] [address] [place] [address] Test Date: 2016-08-14 Test Time: 23:59:29 Pat Name: CEDRIC BARBA Department: Room: 260 1 Gender: M [employer]: TIAGO : 1950 Requested By: JACY ANN Order Number: [id number] Reading MD: Jason Pineda Measurements Intervals [place] Rate: 68 P: 65 NC: 140 QRS: 67 QRSD: 82 T: 64 QT: 388 QTc: 417 Interpretive Statements SINUS RHYTHM NONSPECIFIC ST-T WAVE CHANGES. RI6.01 Compared to ECG 08/04/2016 05:44:43 No significant changes Electronically Signed On 08-16-2016 11:01:51 CDT by Jason Pineda
--- NOTE | 2016-08-15 14:01 | PDOC ---
PROGRESS NOTES Chief Complaint Chief Complaint cc: chest pain A/P Chest pain likely MSK related, possible stress test in AM. Subacute left 4th through 8th rib fractures, recent fall few weeks ago AECOPD: on Solumedrol, bronchodilators, and oxygen as needed. Nicotine use : prn nicotine patch Vitals Vitals Vital Signs Date Time Temp Pulse Resp B/P (MAP) Pulse Ox O2 Delivery O2 Flow Rate FiO2 08/15/16 12:15 95 Room Air 08/15/16 11:00 98.1 77 20 120/72 (88) 98.1 08/15/16 07:50 2.0 Physical Exam General: Alert, Oriented X3, Cooperative Heart: Normal S1, Normal S2 Lungs: Clear Abdomen: Normal bowel sounds, Soft Extremities: No cyanosis, No edema Skin: No breakdown Labs LABS Laboratory Tests Test 08/14/16 18:35 08/15/16 00:30 08/15/16 03:38 Troponin I Quantitative < 0.017 ng/mL (0.000-0.055) < 0.017 ng/mL (0.000-0.055) White Blood Count 12.1 x10^3/uL (4.0-11.0) Red Blood Count 5.08 x10^6/uL (4.30-5.70) Hemoglobin 15.1 g/dL (13.0-17.5) Hematocrit 46.7 % (39.0-53.0) Mean Corpuscular Volume 92 fL (79-100) Mean Corpuscular Hemoglobin 30 pg (25-35) Mean Corpuscular Hemoglobin Concent 32 g/dL (31-37) Red Cell Distribution Width 15.4 % (11.5-14.5) Platelet Count 258 x10^3/uL (140-400) Neutrophils (%) (Auto) 91 % (31-73) Lymphocytes (%) (Auto) 6 % (24-48) Monocytes (%) (Auto) 2 % (0-9) Eosinophils (%) (Auto) 0 % (0-3) Basophils (%) (Auto) 0 % (0-3) Neutrophils # (Auto) 11.1 x10^3uL (1.8-7.7) Lymphocytes # (Auto) 0.8 x10^3/uL (1.0-4.8) Monocytes # (Auto) 0.2 x10^3/uL (0.0-1.1) Eosinophils # (Auto) 0.0 x10^3/uL (0.0-0.7) Basophils # (Auto) 0.0 x10^3/uL (0.0-0.2) Sodium Level 140 mmol/L (136-145) Potassium Level 4.6 mmol/L (3.5-5.1) Chloride Level 104 mmol/L (98-107) Carbon Dioxide Level 29 mmol/L (21-32) Anion Gap 7 (6-14) Blood Urea Nitrogen 34 mg/dL (8-26) Creatinine 1.1 mg/dL (0.7-1.3) Estimated GFR (Cockcroft-Gault) 66.6 Glucose Level 170 mg/dL (70-99) Calcium Level 8.5 mg/dL (8.5-10.1) Assessment and Plan Assessmemt and Plan Problems Medical Problems: (1) COPD exacerbation Status: Acute (2) Hyperkalemia Status: Acute Problems: Comment Review of Relevant I have reviewed the following items rohit (where applicable) has been applied. Labs Laboratory Tests Test 08/14/16 09:48 08/14/16 18:35 08/15/16 00:30 08/15/16 03:38 White Blood Count 13.5 x10^3/uL (4.0-11.0) 12.1 x10^3/uL (4.0-11.0) Red Blood Count 5.97 x10^6/uL (4.30-5.70) 5.08 x10^6/uL (4.30-5.70) Hemoglobin 18.0 g/dL (13.0-17.5) 15.1 g/dL (13.0-17.5) Hematocrit 54.0 % (39.0-53.0) 46.7 % (39.0-53.0) Mean Corpuscular Volume 91 fL (79-100) 92 fL (79-100) Mean Corpuscular Hemoglobin 30 pg (25-35) 30 pg (25-35) Mean Corpuscular Hemoglobin Concent 33 g/dL (31-37) 32 g/dL (31-37) Red Cell Distribution Width 15.5 % (11.5-14.5) 15.4 % (11.5-14.5) Platelet Count 312 x10^3/uL (140-400) 258 x10^3/uL (140-400) Neutrophils (%) (Auto) 65 % (31-73) 91 % (31-73) Lymphocytes (%) (Auto) 23 % (24-48) 6 % (24-48) Monocytes (%) (Auto) 7 % (0-9) 2 % (0-9) Eosinophils (%) (Auto) 3 % (0-3) 0 % (0-3) Basophils (%) (Auto) 2 % (0-3) 0 % (0-3) Neutrophils # (Auto) 8.8 x10^3uL (1.8-7.7) 11.1 x10^3uL (1.8-7.7) Lymphocytes # (Auto) 3.1 x10^3/uL (1.0-4.8) 0.8 x10^3/uL (1.0-4.8) Monocytes # (Auto) 0.9 x10^3/uL (0.0-1.1) 0.2 x10^3/uL (0.0-1.1) Eosinophils # (Auto) 0.4 x10^3/uL (0.0-0.7) 0.0 x10^3/uL (0.0-0.7) Basophils # (Auto) 0.3 x10^3/uL (0.0-0.2) 0.0 x10^3/uL (0.0-0.2) Prothrombin Time 11.4 SEC (11.7-14.0) Prothromb Time International Ratio 0.9 (0.8-1.1) Activated Partial Thromboplast Time 28 SEC (24-38) Sodium Level 142 mmol/L (136-145) 140 mmol/L (136-145) Potassium Level 5.6 mmol/L (3.5-5.1) 4.6 mmol/L (3.5-5.1) Chloride Level 104 mmol/L (98-107) 104 mmol/L (98-107) Carbon Dioxide Level 30 mmol/L (21-32) 29 mmol/L (21-32) Anion Gap 8 (6-14) 7 (6-14) Blood Urea Nitrogen 31 mg/dL (8-26) 34 mg/dL (8-26) Creatinine 1.0 mg/dL (0.7-1.3) 1.1 mg/dL (0.7-1.3) Estimated GFR (Cockcroft-Gault) 74.3 66.6 BUN/Creatinine Ratio 31 (6-20) Glucose Level 82 mg/dL (70-99) 170 mg/dL (70-99) Calcium Level 9.2 mg/dL (8.5-10.1) 8.5 mg/dL (8.5-10.1) Total Bilirubin 0.3 mg/dL (0.2-1.0) Aspartate Amino Transf (AST/SGOT) 44 U/L (15-37) Alanine Aminotransferase (ALT/SGPT) 38 U/L (16-63) Alkaline Phosphatase 97 U/L (46-116) Troponin I Quantitative < 0.017 ng/mL (0.000-0.055) < 0.017 ng/mL (0.000-0.055) < 0.017 ng/mL (0.000-0.055) BA-Bzs-F-Type Natriuretic Peptide 17 pg/mL (0-124) Total Protein 6.9 g/dL (6.4-8.2) Albumin 3.4 g/dL (3.4-5.0) Albumin/Globulin Ratio 1.0 (1.0-1.7) Laboratory Tests Test 08/14/16 18:35 08/15/16 00:30 08/15/16 03:38 Troponin I Quantitative < 0.017 ng/mL (0.000-0.055) < 0.017 ng/mL (0.000-0.055) White Blood Count 12.1 x10^3/uL (4.0-11.0) Red Blood Count 5.08 x10^6/uL (4.30-5.70) Hemoglobin 15.1 g/dL (13.0-17.5) Hematocrit 46.7 % (39.0-53.0) Mean Corpuscular Volume 92 fL (79-100) Mean Corpuscular Hemoglobin 30 pg (25-35) Mean Corpuscular Hemoglobin Concent 32 g/dL (31-37) Red Cell Distribution Width 15.4 % (11.5-14.5) Platelet Count 258 x10^3/uL (140-400) Neutrophils (%) (Auto) 91 % (31-73) Lymphocytes (%) (Auto) 6 % (24-48) Monocytes (%) (Auto) 2 % (0-9) Eosinophils (%) (Auto) 0 % (0-3) Basophils (%) (Auto) 0 % (0-3) Neutrophils # (Auto) 11.1 x10^3uL (1.8-7.7) Lymphocytes # (Auto) 0.8 x10^3/uL (1.0-4.8) Monocytes # (Auto) 0.2 x10^3/uL (0.0-1.1) Eosinophils # (Auto) 0.0 x10^3/uL (0.0-0.7) Basophils # (Auto) 0.0 x10^3/uL (0.0-0.2) Sodium Level 140 mmol/L (136-145) Potassium Level 4.6 mmol/L (3.5-5.1) Chloride Level 104 mmol/L (98-107) Carbon Dioxide Level 29 mmol/L (21-32) Anion Gap 7 (6-14) Blood Urea Nitrogen 34 mg/dL (8-26) Creatinine 1.1 mg/dL (0.7-1.3) Estimated GFR (Cockcroft-Gault) 66.6 Glucose Level 170 mg/dL (70-99) Calcium Level 8.5 mg/dL (8.5-10.1) Medications Current Medications Aspirin (Metastorm Aspirin) 325 mg 1X ONCE PO ; Start 08/14/16 at 10:00; Stop 08/14 at 10:01; Status DC Morphine Sulfate 4 mg PRN Q15MIN PRN IV/SQ PAIN GREATER THAN 3/10 Last administered on 08/14/16 10:16; Start 08/14/16 at 10:00; Stop 08/14/16 at 17:06 ; Status DC Albuterol Sulfate (Ventolin Neb Soln) 5 mg 1X ONCE INH Last administered on 10:27; Start 08/14/16 at 10:00; Stop 08/14/16 at 10:06; Status DC Albuterol/ Ipratropium (Duoneb) 3 ml 1X ONCE NEB Last administered on 10:28; Start 08/14/16 at 10:00; Stop 08/14/16 at 10:06; Status DC Methylprednisolone Sodium Succinate (SOLU-Medrol 125MG VIAL) 125 mg 1X ONCE IV Last administered on 08/14/16 10:16; Start 08/14/16 at 10:00; Stop 08/14/16 at 10:06; Status DC Ondansetron HCl (Zofran) 4 mg PRN Q8HRS PRN IV NAUSEA/VOMITING; Start 08/14/16 at 12:30; Stop 08/15/16 at 12:29; Status DC Morphine Sulfate 4 mg PRN Q2HR PRN IV PAIN Last administered on 08/14/16 19:28 ; Start 08/14/16 at 12:30; Stop 08/15/16 at 12:29; Status DC Acetaminophen (Tylenol) 650 mg PRN Q4HRS PRN PO FEVER Last administered on 08/14 19:20; Start 08/14/16 at 12:30; Stop 08/15/16 at 12:29; Status DC Nitroglycerin (Nitrostat) 0.4 mg PRN Q5MIN PRN SL CHEST PAIN; Start 08/14/16 at 12:30; Stop 08/15/16 at 12:29; Status DC Albuterol/ Ipratropium (Duoneb) 3 ml RTQID NEB ; Start 08/14/16 at 13:00; Stop 08/14/16 at 17:06; Status DC Sodium Chloride 1,000 ml @ 100 mls/hr Q10H IV Last administered on 08/15/16 08:46; Start 08/14/16 at 12:30 Multi-Ingredient Mouthwash/Gargle (Gi Cocktail Single Dose) 15 ml 1X ONCE SWSW Last administered on 08/14/16 17:32; Start 08/14/16 at 16:30; Stop 08/14/16 at 16:31; Status DC Lisinopril (Prinivil) 20 mg DAILY PO ; Start 08/14/16 at 17:00; Stop 08/14/16 at 17:13; Status DC Non-Formulary Medication 1 puff PRN Q6HRS PRN INH SHORTNESS OF BREATH; Start at 17:00; Stop 08/14/16 at 17:09; Status DC Non-Formulary Medication 2 puff BID IH ; Start 08/14/16 at 21:00; Stop 08/14/16 at 21:00; Status DC Non-Formulary Medication 1 cap DAILY IH ; Start 08/15/16 at 09:00; Stop at 09:00; Status DC Albuterol Sulfate (Ventolin Neb Soln) 2.5 mg PRN Q6HRS PRN NEB SHORTNESS OF BREATH Last administered on 08/14/16 20:00; Start 08/14/16 at 17:00 Albuterol/ Ipratropium (Duoneb) 3 ml RTQID NEB Last administered on 08/15/16 12:14; Start 08/14/16 at 20:00 Budesonide (Pulmicort) 0.5 mg RTBID NEB Last administered on 08/15/16 07:56; Start 08/14/16 at 20:00 Enoxaparin Sodium (Lovenox Per Pharmacy Prophylaxis Dosing) 1 each PRN DAILY PRN MC SEE COMMENTS; Start 08/14/16 at 17:15 Enoxaparin Sodium (Lovenox 40mg Syringe) 40 mg Q24H SQ Last administered on 17:31; Start 08/14/16 at 18:00 Famotidine (Pepcid) 20 mg BID PO Last administered on 08/15/16 08:43; Start at 21:00 Zolpidem Tartrate (Ambien) 5 mg PRN QHS PRN PO INSOMNIA, MAY REPEAT IN 1HR Last administered on 08/14/16 23:08; Start 08/14/16 at 19:15 Lorazepam (Ativan) 1 mg PRN Q4HRS PRN IV ANXIETY / AGITATION Last administered on 08/15/16 10:43; Start 08/14/16 at 20:15 Nicotine (Nicoderm Cq 14mg) 1 patch PRN DAILY PRN TD SMOKING CESSATION Last administered on 08/14/16 20:43; Start 08/14/16 at 20:15 Nicotine Polacrilex (Nicorette Gum) 1 each PRN Q1HR PRN BC SMOKING CESSATION; Start 08/14/16 at 20:15 Methylprednisolone Sodium Succinate (SOLU-Medrol 40MG VIAL) 40 mg Q12HR IV Last administered on 08/15/16 09:27; Start 08/15/16 at 09:15 Sodium Chloride 500 ml @ 500 mls/hr 1X ONCE IV Last administered on 09:27; Start 08/15/16 at 09:15; Stop 08/15/16 at 10:14; Status DC Ceftriaxone Sodium 1 gm/ Sodium Chloride 50 ml @ 100 mls/hr Q24H IV Last administered on 08/15/16 10:39; Start 08/15/16 at 10:00 Iohexol (Omnipaque 300 Mg/ml) 75 ml 1X ONCE IV Last administered on 08/15/16 10:07; Start 08/15/16 at 09:45; Stop 08/15/16 at 09:46; Status DC Info (Do NOT chart on this entry -- for MONITORING) 1 each PRN DAILY PRN MC SEE COMMENTS; Start 08/15/16 at 10:00; Stop 08/17/16 at 09:59 Active Scripts Active Proair Hfa Inhaler (Albuterol Sulfate) 8.5 Gm Hfa.aer.ad 1 Puff INH PRN Q6HRS PRN Reported Symbicort 160-4.5 Mcg Inhaler (Budesonide/Formoterol Fumarate) 10.2 Gm Hfa.aer.ad 2 Puff IH BID Spiriva (Tiotropium Jonancy) 18 Mcg Cap.w.dev 1 Cap IH DAILY Lisinopril 20 Mg Tablet 1 Tab PO DAILY Vitals/I & O Vital Sign - Last 24 Hours 08/14/16 08/14/16 08/14/16 08/14/16 15:00 17:37 19:28 19:30 Temp 97.6 98.1 97.6 98.1 Pulse 72 71 Resp 20 22 B/P (MAP) 118/68 (85) 122/66 (84) Pulse Ox 92 93 O2 Delivery Room Air Room Air Nasal Cannula Nasal Cannula O2 Flow Rate 2.0 2.0 08/14/16 08/14/16 08/14/16 08/14/16 19:58 20:00 20:02 23:20 Temp 98.4 98.4 Pulse 68 Resp 22 B/P (MAP) 124/70 (88) Pulse Ox 98 O2 Delivery Nasal Cannula Nasal Cannula Room Air Nasal Cannula O2 Flow Rate 2.0 2.0 2.0 08/15/16 08/15/16 08/15/16 08/15/16 03:05 07:00 07:50 07:58 Temp 98.1 98.1 98.1 98.1 Pulse 63 68 Resp 24 20 B/P (MAP) 121/68 (85) 135/62 (86) Pulse Ox 95 98 95 O2 Delivery Nasal Cannula Nasal Cannula Nasal Cannula Room Air O2 Flow Rate 3.0 2.0 2.0 08/15/16 08/15/16 11:00 12:15 Temp 98.1 98.1 Pulse 77 Resp 20 B/P (MAP) 120/72 (88) Pulse Ox 96 95 O2 Delivery Room Air Room Air Intake and Output 08/14/16 08/14/16 08/15/16 15:00 23:00 07:00 Intake Total 460 ml 1770 ml Balance 460 ml 1770 ml KORIN MAXWELL MD Aug 15, 2016 14:01
[2016-08-15] MEDS: HYDROcodone/APAP 5/325MG 1 TAB TABLET PO PRN (14:51)
[2016-08-15 14:55] VITALS: BP 139/67
[2016-08-15] MEDS: ENOXAPARIN 40 MG/0.4 ML SYRINGE. SQ SCH (17:59)
[2016-08-15 19:25] VITALS: BP 117/71
[2016-08-15] MEDS: ZOLPIDEM 5 MG TABLET. PO PRN (22:56)
[2016-08-15 23:15] VITALS: BP 141/62
[2016-08-16 03:03] VITALS: BP 140/74
[2016-08-16] MEDS: IV NORMAL SALINE 1000ML BAG 1,000 ML IV SCH ×2 (04:30→14:30)
[2016-08-16] MEDS: HYDROcodone/APAP 5/325MG 1 TAB TABLET PO PRN (05:29)
[2016-08-16 07:30] VITALS: BP 153/52
[2016-08-16] MEDS: IPRATRPIUM/ALBUTEROL 0.5/2.5MG 3 ML NEBU. NEB SCH ×3 (07:32→15:17)
[2016-08-16] MEDS: BUDESONIDE 0.5 MG/2 ML NEBU. NEB SCH (07:32)
[2016-08-16] MEDS: methylPREDNISolone SOD SUCC PF 40 MG/ML VIAL. IV SCH (08:45)
[2016-08-16] MEDS: FAMOTIDINE 20 MG TABLET. PO SCH (09:00)
--- NOTE | 2016-08-16 10:43 | PDOC ---
LANE [facility] APRN 08/16/16 1042: CARDIO Progress Notes Date and Time Date of Service 08/16/16 Time of Evaluation 0910 Subjective Subjective: No Chest Pain, No shortness of breath Vitals Vitals Vital Signs Date Time Temp Pulse Resp B/P (MAP) Pulse Ox O2 Delivery O2 Flow Rate FiO2 08/16/16 08:35 Nasal Cannula 2.0 08/16/16 07:40 100 08/16/16 07:30 97.5 66 22 153/52 (85) 97.5 Weight Weight [ ] Input and Output Intake and Output Intake and Output 08/16/16 07:00 Intake Total 1836 ml Output Total 650 ml Balance 1186 ml Intake Oral 836 ml IV Total 1000 ml Output Urine Total 650 ml # Voids 6 Physical Exam HEENT: Neck Supple W Full Motion Chest: Symmetric LUNGS: Clear to Auscultation Heart: S1S2, RRR Abdomen: Soft N/T Extremities: 2+ Dorsalis Pedis, No Calf Tenderness Neurology: alert, oriented, follow commands Assessment Assessment 1. Chest pain, with atypical features; AMI ruled out. Most probably MSK in origin 2. Peripheral vascular disease; s/p [employer]/stent to LLE, presently without any claudication symptoms. 3. Hypertension; Controlled with meds 4. COPD; stable Recommendations Echo and MPI underway today. If no evidence or reversible ischemia, may discharge from a cardiac standpoint Continue secondary prevention measures PAULA COPELAND MD 08/17/16 0852: CARDIO Progress Notes Assessment Assessment Patient seen and examined 08/16/16. Agree with PIPE BENDER's assessment and plan. 2-D echo showed normal LV function and nuclear stress test did not show any significant ischemia. Chest pain noncardiac and most probably musculoskeletal. Okay for discharge from cardiac standpoint. L[facility] APRN Aug 16, 2016 10:42 PAULA COPELAND MD Aug 17, 2016 08:52
[2016-08-16] MEDS ORDERED: ATROPINE 0.5 MG/5 ML DISP.SYRIN. IV ONE (10:45)
[2016-08-16 11:20] VITALS: BP 146/84
--- NOTE | 2016-08-16 11:33 | PDOC3 ---
Discharge Summary [facility] Date of Admission: Aug 14, 2016 Discharge Date: Aug 16, 2016 Admitting Diagnosis Chest pain likely MSK related Subacute left 4th through 8th rib fractures, recent fall few weeks ago AECOPD tobaccoism PAD post stents SIRS with COPD hyperkalemia Problems: Final Diagnosis CONSULTS card Brief Hospital Course Mr. Martínez is a 66 old M, smoker, HTN, copd on inhaler, no PCP, comes for chest pain post fall 1 month ago, CTA showed left 4-8 rib fx. pt will do MPI today, if normal, dc home dc with renew home meds and lortab 20 pills. General: Alert, Oriented X3, Cooperative Heart: Normal S1, Normal S2. left chest tenderness Lungs: bl decreased bs Abdomen: Normal bowel sounds, Soft Extremities: No cyanosis, No edema Skin: No breakdown Patient History: FH: stroke 33 FATHER Problems: Disposition home CONDITION AT DISCHARGE: Improved Diet regular Scheduled Budesonide/Formoterol Fumarate (Symbicort 160-4.5 Mcg Inhaler), 2 PUFF IH BID, ( Reported) Lisinopril (Lisinopril), 1 TAB PO DAILY, (Reported) Tiotropium [place] (Spiriva), 1 CAP IH DAILY, (Reported) Scheduled PRN Albuterol Sulfate (Proair Hfa Inhaler), 1 PUFF INH PRN Q6HRS PRN for SHORTNESS OF BREATH Follow Up pcp in 2 weeks SYLWIA LEVINE MD Aug 16, 2016 11:33
[2016-08-16] MEDS ORDERED: LISI-334 PO (13:16)
[2016-08-16] MEDS ORDERED: PROAIR HFA8.5 GM INH (13:16)
[2016-08-16] MEDS ORDERED: PRED20TA PO (13:17)
[2016-08-16] MEDS ORDERED: LEVO500T59 PO (13:17)
[2016-08-16] MEDS ORDERED: BUDE10.2 IH (13:17)
[2016-08-16] MEDS ORDERED: TIOT18CA IH (13:17)
--- NOTE | 2016-08-16 13:45 | RAD ---
APPROVED REPORT Test Type: Pharmacological Stress Nurse/Tech: Yanira Lucio R.N. Cardiac History: Family history, Hypertension Medications: See Electronic Medical Record Medical History: See Electronic Medical Record Resting ECG: NSR Resting Heart Rate: 68 bpm Resting Blood Pressure: 146/86mmHg Pretest Chest Pain: No chest pain Nurse/Tech Notes S1S2, coarse breath sounds Consent: The procedure was explained to the patient in lay terms. Informed consent was witnessed. Danilo eout was entered into [employer]. History and Stress Test performed by Yanira Lucio R.N. Pharm. Details Pharmacologic stress testing was performed using Dobutamine with a maximal infusion of 40 mcg/mg/min. Atropine 0.5 mg, given intravenously for Other. There was low-level exercise performed along with the infusion Stress Symptoms DyspneaDizzinessFatigue POST EXERCISE Reason for Termination: Reached target heart rate Target HR: 129 Max HR: 151 bpm Exercise duration: 15:57 min:sec, Stage Max Blood Pressure: 197/87mmHg Blood Pressure response to exercise: Normal blood pressure response during stress. Chest Pain: No. Arrhythmia: No. ST Change: No. INTERPRETATION Stress EKG Conclusion: No evidence of stress induced EKG changes with vasodilator stress. Imaging Protocol IMAGE PROTOCOL: Rest Tc-99m/stress Tc-99m 1 day Rest: Stress: Viability: Radiopharm.Tc99m WheeeuvhqMj43d Sestamibi Dose12.4mCi 33mCi Duration 15min. 10min. Img Date 08/16/2016 08/16/2016 Inj-Img Werx63zid. 90min. Rest Admin Site:IV - Left AntecubitalAdministrator:EDMUND Madrigal Stress Admin Site: IV - Left AntecubitalAdministrator: RT Thao (R)(N) STRESS DATA End Diast. Vol.93.0mlAv. Heart Rate97.0bpm End Syst. Vol.23.0mlCO Index BSA0.0L/min Myocardial Coak116.0gEject. Vgzbahwu86.0% Stress Rates Pk. Fill Rate5.12EDV/secLVtime Pk. Fill 165.40msec Pk. Empty Rate5.82ESV/secLVtime Pk. Vevig871.88msec 1/3 Pk. Fill1.52EDV/sec Stress Scores Regional WT0.00Summed WT0.00 Regional WM0.00Summed WM6.00 The rest and stress images show normal perfusion, normal contraction and thickening. LV Perfusion There is a small fixed basal inferoseptal defect likely artifactual in nature and no evidence of isch emia or infarct based on normal wall motion. Wall Motion Normal wall motion. LV Perf. Quant 17 Seg. SSS2.00 17 Seg. SRS6.00 17 Seg. SDS0.00 Stress Defect Extent (% LAD)7.50Rest Defect Extent (% LAD)11.30Rev. Defect Extent (% LAD)0.00 Stress Defect Extent (% LCX) 0.00Rest Defect Extent (% LCX)6.30Rev. Defect Extent (% LCX)0.00 Stress Defect Extent (% RCA)0.00Rest Defect Extent (% RCA)0.00Rev. Defect Extent (% RCA)0.00 Stress Defect Extent (% FLEX)2.80Rest Defect Extent (% FLEX)8.70Rev. Defect Extent (% FLEX)0.00 Other Information Quality:Average Risk Assessment: Low Risk Conclusion 1. No evidence of vasodilator stress induced EKG changes. 2. Fixed basal septal defect, likely artifact. No evidence of ischemia or infarct. 3. Normal EF at > 70% 4. Low risk study
--- NOTE | 2016-08-16 15:09 | PDOC ---
PULMONARY PROGRESS NOTES Vitals Vital Signs Date Time Temp Pulse Resp B/P (MAP) Pulse Ox O2 Delivery O2 Flow Rate FiO2 08/16/16 11:20 97.7 97 22 146/84 (104) 92 Room Air 97.7 08/16/16 08:35 2.0 Lungs: Clear Labs Laboratory Tests Test 08/14/16 18:35 08/15/16 00:30 08/15/16 03:38 Troponin I Quantitative < 0.017 ng/mL (0.000-0.055) < 0.017 ng/mL (0.000-0.055) White Blood Count 12.1 x10^3/uL (4.0-11.0) Red Blood Count 5.08 x10^6/uL (4.30-5.70) Hemoglobin 15.1 g/dL (13.0-17.5) Hematocrit 46.7 % (39.0-53.0) Mean Corpuscular Volume 92 fL (79-100) Mean Corpuscular Hemoglobin 30 pg (25-35) Mean Corpuscular Hemoglobin Concent 32 g/dL (31-37) Red Cell Distribution Width 15.4 % (11.5-14.5) Platelet Count 258 x10^3/uL (140-400) Neutrophils (%) (Auto) 91 % (31-73) Lymphocytes (%) (Auto) 6 % (24-48) Monocytes (%) (Auto) 2 % (0-9) Eosinophils (%) (Auto) 0 % (0-3) Basophils (%) (Auto) 0 % (0-3) Neutrophils # (Auto) 11.1 x10^3uL (1.8-7.7) Lymphocytes # (Auto) 0.8 x10^3/uL (1.0-4.8) Monocytes # (Auto) 0.2 x10^3/uL (0.0-1.1) Eosinophils # (Auto) 0.0 x10^3/uL (0.0-0.7) Basophils # (Auto) 0.0 x10^3/uL (0.0-0.2) Sodium Level 140 mmol/L (136-145) Potassium Level 4.6 mmol/L (3.5-5.1) Chloride Level 104 mmol/L (98-107) Carbon Dioxide Level 29 mmol/L (21-32) Anion Gap 7 (6-14) Blood Urea Nitrogen 34 mg/dL (8-26) Creatinine 1.1 mg/dL (0.7-1.3) Estimated GFR (Cockcroft-Gault) 66.6 Glucose Level 170 mg/dL (70-99) Calcium Level 8.5 mg/dL (8.5-10.1) Medications Active Scripts Medications Dose Route/Sig Max Daily Dose Days Date Category Levaquin (Levofloxacin) 500 Mg Tablet 500 Mg PO DAILY06 3 08/16/16 Rx Prednisone 20 Mg Tablet 40 Mg PO DAILY 3 08/16/16 Rx Symbicort 160-4.5 Mcg Inhaler (Budesonide/Formoterol Fumarate) 10.2 Gm Hfa.aer.ad 2 Puff IH BID 08/16/16 Rx Spiriva (Tiotropium [place]) 18 Mcg Cap.w.dev 1 Cap IH DAILY 08/16/16 Rx Lisinopril 20 Mg Tablet 1 Tab PO DAILY 08/16/16 Rx Proair Hfa Inhaler (Albuterol Sulfate) 8.5 Gm Hfa.aer.ad 1 Puff INH PRN Q6HRS PRN 08/16/16 Rx Impression . 1. Acute respiratory failure, multifactorial in etiology including acute exacerbation of chronic obstructive pulmonary disease, acute bronchitis, rule out pulmonary embolism versus others. 2. Acute exacerbation of chronic obstructive pulmonary disease. 3. Acute bronchitis. 4. Status post fall. 5. Dizziness ? etiology. 6. Hypertension. 7. Tobacco habituation. 8. Hypercholesterolemia. 9. Peripheral vascular disease. Plan . PLAN AND RECOMMENDATIONS: 1. I had a long discussion with him regarding smoking cessation. I have advised him to stop smoking forever. 2. Bronchodilator. 3. Inhaled corticosteroid. 4. Add Solu-Medrol 40 mg IV b.i.d. 5. Add Rocephin. 6. I do recommend a CT angiogram. The patient's BUN is 34, creatinine is 1.1. I will give him normal saline 500 mL bolus before the CT. 7. Lovenox for DVT prophylaxis. 8. Pepcid for stress ulcer prophylaxis. 9. Monitor respiratory status very closely. 10. The findings and recommendations were discussed with the patient and RN. I have answered all of the patient's questions. He understood and agreed to proceed with the plan. Thank you very much for allowing me to participate in the care of this very nice gentleman. LUIS A NOLASCO MD Aug 16, 2016 15:09
[2016-08-16 15:18] VITALS: BP 150/74
--- NOTE | 2016-08-16 15:31 | CARD ---
APPROVED REPORT EXAM: Two-dimensional and M-mode echocardiogram with Doppler and color Doppler. Other Information Quality : Fair Rhythm : NSR INDICATION Chest Pain 2D DIMENSIONS RVDd2.2 (2.9-3.5cm)Left Atrium(2D)2.9 (1.6-4.0cm) IVSd0.8 (0.7-1.1cm)Aortic Root(2D)2.7 (2.0-3.7cm) LVDd4.5 (3.9-5.9cm)LVOT Diameter2.0 (1.8-2.4cm) PWd0.8 (0.7-1.1cm)LVDs2.9 (2.5-4.0cm) FS (%) 35.1 %SV60.4 ml LVEF(%)64.5 (>50%) Aortic Valve AoV Peak Ankit.203.5cm/sAoV VTI34.2cm AO Peak GR.16.6mmHgLVOT VTI 26.82cm AO Mean GR.8mmHg Mitral Valve MV E Qnbpcocq74.8cm/sMV DECEL AFKQ306nm MV A Juhfpivr787.9cm/sE/A Ratio0.8 MV A Fqrbikrx32rd TDI Lateral E' P. V9.57cm/sMedial E' P. V12.04cm/s E/Lateral E'10.2E/Medial E'8.1 Tricuspid Valve TR P. Esozehcr379ck/sRAP EXIZOLKB9dbAo TR Peak Gr.92hwRnPHNH13guYr LEFT VENTRICLE The left ventricle is normal size. There is normal left ventricular wall thickness. Left ventricle sy stolic function is normal. The Ejection Fraction is 60-65%. There is normal LV segmental wall motion. Tissue Doppler imaging reveals mild left ventricular diastolic dysfunction. Transmitral Doppler flow pattern is Grade I-abnormal relaxation pattern. There is no ventricular septal defect visualized. RIGHT VENTRICLE The right ventricle is normal size. The right ventricular systolic function is normal. ATRIA The left atrium size is normal. The right atrium size is normal. The interatrial septum is intact wit h no evidence for an atrial septal defect or patent foramen ovale as noted on 2-D or Doppler imaging. AORTIC VALVE The aortic valve is normal in structure and function. The aortic valve is trileaflet. Doppler and Col or Flow revealed no significant aortic regurgitation. There is no significant aortic valvular stenosi s. MITRAL VALVE The mitral valve is normal in structure and function. There is no mitral valve stenosis. Doppler and Color Flow revealed trace mitral regurgitation. TRICUSPID VALVE The tricuspid valve is normal in structure and function. Doppler and Color Flow revealed mild to mode rate tricuspid regurgitation. The PA pressure was estimated at 47 mmHg. There is no tricuspid valve s tenosis. PULMONIC VALVE The pulmonic valve is not well visualized. Doppler and Color Flow revealed no pulmonic valvular regur gitation. There is no pulmonic valvular stenosis. GREAT VESSELS The aortic root is normal in size. The ascending aorta is normal in size. Pulmonary veins not recorde d. The IVC is normal in size and collapses >50% with inspiration. PERICARDIAL EFFUSION There is no evidence of significant pericardial effusion. Critical Notification Critical Value: No <Conclusion> The left ventricle is normal size. Left ventricle systolic function is normal. The Ejection Fraction is 60-65%. There is no significant aortic valvular stenosis. Doppler and Color Flow revealed no significant aortic regurgitation. Doppler and Color Flow revealed trace mitral regurgitation. Doppler and Color Flow revealed mild to moderate tricuspid regurgitation. The PA pressure was estimated at 47 mmHg.
[2016-08-17] MEDS ORDERED: predniSONE 20 MG TABLET PO SCH (09:00)
== END 2016-08-16 17:33 | disposition home or self-care (01) | DRG 183 ==
LOC: ER 09:42 → 2 SOUTH 10:54
PROVIDERS: ADMIT Internal Medicine; ATTEND Internal Medicine
DX: S22.42XA Multiple fractures of ribs, left side, initial encounter for closed fracture (principal); J96.00 Acute respiratory failure, unspecified whether with hypoxia or hypercapnia; J44.0 Chronic obstructive pulmonary disease with (acute) lower respiratory infection; J44.1 Chronic obstructive pulmonary disease with (acute) exacerbation; R65.10 Systemic inflammatory response syndrome (SIRS) of non-infectious origin without acute organ dysfunction; M94.0 Chondrocostal junction syndrome [Tietze]; E78.00 Pure hypercholesterolemia, unspecified; E87.5 Hyperkalemia; F17.210 Nicotine dependence, cigarettes, uncomplicated; J20.9 Acute bronchitis, unspecified; I20.9 Angina pectoris, unspecified; W19.XXXA Unspecified fall, initial encounter; K21.9 Gastro-esophageal reflux disease without esophagitis; I73.9 Peripheral vascular disease, unspecified; I10 Essential (primary) hypertension; Z88.8 Allergy status to other drugs, medicaments and biological substances; Z82.49 Family history of ischemic heart disease and other diseases of the circulatory system; Z86.73 Personal history of transient ischemic attack (TIA), and cerebral infarction without residual deficits; Y93.89 Activity, other specified; Y92.89 Other specified places as the place of occurrence of the external cause; Y99.8 Other external cause status; R07.89 Other chest pain
CPT/HCPCS: 36415; 71010; 71110; 71275; 78452; 80048; 80053; 83880; 84484; 85027; 85610; 85730; 93005; 93017; 93306; 94250; 94640; 94760; 96374; 96375; 96376; 99406; A9500; J0461; J0696; J1250; J1650; J2060; J2270; J2920; J2930; J7030; J7040; J7620; Q9967; 99285-25

== ENCOUNTER 2016-10-15 12:21 | Emergency (ER) | payer BC, OTHER ==
[~2016-10-15] VITALS: Ht 165.1 cm; Wt 65.8 kg
[~2016-10-15 12:21] MED LIST changes: +BUDE10.2 IH; +LEVO500T59 PO; +LISI-334 PO; +PRED20TA PO; +TIOT18CA IH
[2016-10-15] MEDS ORDERED: ALBUTEROL SULFATE 2.5 MG/3 ML NEBU. NEB ONE (13:15)
[2016-10-15] MEDS ORDERED: IPRATRPIUM/ALBUTEROL 0.5/2.5MG 3 ML NEBU. NEB ONE (13:15)
[2016-10-15] MEDS ORDERED: DEXAMETHASONE SOD PHOS 20 MG/5 ML VIAL. IV ONE (13:15)
--- NOTE | 2016-10-15 13:15 | RAD ---
Chest radiograph 10/15/2016 2:42 PM Indication: Shortness of air, history of COPD Comparison: Chest radiograph 08/15/2016, 08/04/2016 Technique: Single portable upright frontal view of the chest is provided. Findings: Cardiomediastinal silhouette is within normal limits. No pleural effusions, pulmonary vascular congestion or pneumothorax. The lungs are clear. Radiopaque foreign densities project over the left humeral head, stable dating back to 08/04/2016. Impression: No acute cardiopulmonary process.
[2016-10-15 13:26] LABS: BASO # 0.1 x10^3/uL (0.0-0.2); BASO % 1 % (0-3); EOS % 7 % (0-3); HEMATOCRIT 48.6 % (39.0-53.0); HEMOGLOBIN 16.4 g/dL (13.0-17.5); LYMPH # 3.6 x10^3/uL (1.0-4.8); LYMPH % 34 % (24-48); MEAN CORPUSCULAR HEMOGLOBIN 30 pg (25-35); MEAN CORPUSCULAR HGB CONC 34 g/dL (31-37); MEAN CORPUSCULAR VOLUME 89 fL (79-100); MONO % 9 % (0-9); NEUT % 50 % (31-73); PLATELET COUNT 306 x10^3/uL (140-400); RED BLOOD COUNT 5.49 x10^6/uL (4.30-5.70); RED CELL DISTRIBUTION WIDTH 13.9 % (11.5-14.5); WHITE BLOOD COUNT 10.6 x10^3/uL (4.0-11.0)
[2016-10-15 13:43] LABS: CALCIUM 9.2 mg/dL (8.5-10.1); CREATININE 0.9 mg/dL (0.7-1.3); GFR 83.9; INR 0.9 (0.8-1.1); POTASSIUM 4.1 mmol/L (3.5-5.1); PROTHROMBIN TIME PATIENT 11.8 SEC (11.7-14.0)
--- NOTE | 2016-10-15 13:50 | PHYS DOC ---
Past Medical History Past Medical History: COPD, Hypertension Past Surgical History: Other Additional Past Surgical Histo: stent in L leg Additional Information: 1 PACK/DAY Alcohol Use: None Drug Use: None Adult General Chief Complaint Chief Complaint: SHORTNESS OF BREATH HPI HPI Patient is a 66 year old male presenting to the emergency department for evaluation of shortness of breath and cough. Patient reportedly has a history of COPD and still smokes cigarettes and over the past several days has been having shortness of breath even with short walks. He says in addition to that when he exerts himself he gets tightness in his chest to the point he needs to stop exerting himself. Patient says that he has a nonproductive cough but no fevers chills nausea vomiting or other systemic symptoms. He denies having any heart attacks in the past but he denies having any cardiac workup either. Patient is moderately short of breath but nontoxic-appearing. Review of Systems Review of Systems Constitutional: Denies fever or chills [] Eyes: Denies change in visual acuity, redness, or eye pain [] HENT: Denies nasal congestion or sore throat [] Respiratory: + cough and shortness of breath [] Cardiovascular: Positive chest pain GI: Denies abdominal pain, nausea, vomiting, bloody stools or diarrhea [] : Denies dysuria or hematuria [] Musculoskeletal: Denies back pain or joint pain [] Integument: Denies rash or skin lesions [] Neurologic: Denies headache, focal weakness or sensory changes [] Current Medications Current Medications Current Medications Medications (Trade) Dose Ordered Sig/Wiliam Start Time Stop Time Status Last Admin Dose Admin Albuterol Sulfate (Ventolin Neb Soln) 5 mg 1X ONCE 10/15/16 13:15 10/15/16 13:16 DC 10/15/16 13:54 5 MG Albuterol/ Ipratropium (Duoneb) 3 ml 1X ONCE 10/15/16 13:15 10/15/16 13:16 DC 10/15/16 13:53 3 ML Dexamethasone Sodium Phosphate (Decadron) 8 mg 1X ONCE 10/15/16 13:15 10/15/16 13:16 DC 10/15/16 13:12 8 MG Allergies Allergies Allergies Coded Allergies Type Severity Reaction Last Updated Verified chlorpheniramine Allergy Severe STOPPED BREATHING 08/15/16 Yes pseudoephedrine Allergy Severe STOPPED BREATHING 08/15/16 Yes Physical Exam Physical Exam Constitutional: Well developed, well nourished,, moderately short of breath HENT: Normocephalic, atraumatic, bilateral external ears normal, oropharynx moist, no oral exudates, nose normal. [] Eyes: PERRLA, EOMI, conjunctiva normal, no discharge. [] Neck: Normal range of motion, no tenderness, supple, no stridor. [] Cardiovascular:Heart rate regular rhythm, no murmur [] Lungs & Thorax: Bilateral breath sounds diminished with inspiratory and expiratory wheezing Abdomen: Bowel sounds normal, soft, no tenderness, no masses, no pulsatile masses. [] Skin: Warm, dry, no erythema, no rash. [] Back: No tenderness, no CVA tenderness. [] Extremities: No tenderness, no cyanosis, no clubbing, ROM intact, no edema. [] Neurologic: Alert and oriented X 3, normal motor function, normal sensory function, no focal deficits noted. [] Current Patient Data Vital Signs Vital Signs Date Time Temp Pulse Resp B/P (MAP) Pulse Ox O2 Delivery O2 Flow Rate FiO2 10/15/16 12:32 97.6 77 20 150/72 (98) 95 Room Air 97.6 Lab Values Laboratory Tests Test 10/15/16 12:45 White Blood Count 10.6 x10^3/uL (4.0-11.0) Red Blood Count 5.49 x10^6/uL (4.30-5.70) Hemoglobin 16.4 g/dL (13.0-17.5) Hematocrit 48.6 % (39.0-53.0) Mean Corpuscular Volume 89 fL (79-100) Mean Corpuscular Hemoglobin 30 pg (25-35) Mean Corpuscular Hemoglobin Concent 34 g/dL (31-37) Red Cell Distribution Width 13.9 % (11.5-14.5) Platelet Count 306 x10^3/uL (140-400) Neutrophils (%) (Auto) 50 % (31-73) Lymphocytes (%) (Auto) 34 % (24-48) Monocytes (%) (Auto) 9 % (0-9) Eosinophils (%) (Auto) 7 % (0-3) H Basophils (%) (Auto) 1 % (0-3) Neutrophils # (Auto) 5.3 x10^3uL (1.8-7.7) Lymphocytes # (Auto) 3.6 x10^3/uL (1.0-4.8) Monocytes # (Auto) 0.9 x10^3/uL (0.0-1.1) Eosinophils # (Auto) 0.7 x10^3/uL (0.0-0.7) Basophils # (Auto) 0.1 x10^3/uL (0.0-0.2) Prothrombin Time 11.8 SEC (11.7-14.0) Prothrombin Time INR 0.9 (0.8-1.1) PTT 29 SEC (24-38) Sodium Level 143 mmol/L (136-145) Potassium Level 4.1 mmol/L (3.5-5.1) Chloride Level 105 mmol/L (98-107) Carbon Dioxide Level 33 mmol/L (21-32) H Anion Gap 5 (6-14) L Blood Urea Nitrogen 18 mg/dL (8-26) Creatinine 0.9 mg/dL (0.7-1.3) Estimated GFR (Cockcroft-Gault) 83.9 BUN/Creatinine Ratio 20 (6-20) Glucose Level 119 mg/dL (70-99) H Calcium Level 9.2 mg/dL (8.5-10.1) Magnesium Level 2.0 mg/dL (1.8-2.4) Total Bilirubin 0.3 mg/dL (0.2-1.0) Aspartate Amino Transferase (AST) 29 U/L (15-37) Alanine Aminotransferase (ALT) 33 U/L (16-63) Alkaline Phosphatase 78 U/L (46-116) Troponin I Quantitative < 0.017 ng/mL (0.000-0.055) JG-Jpy-X-Type Natriuretic Peptide 51 pg/mL (0-124) Total Protein 7.3 g/dL (6.4-8.2) Albumin 3.8 g/dL (3.4-5.0) Albumin/Globulin Ratio 1.1 (1.0-1.7) Laboratory Tests 10/15/16 12:45 Laboratory Tests 10/15/16 12:45 EKG EKG Sinus rhythm at 71 beats per minutes with normal axis no obvious ST elevation or depression and normal T waves. Radiology/Procedures Radiology/Procedures Chest radiograph 10/15/2016 2:42 PM Indication: Shortness of air, history of COPD Comparison: Chest radiograph 08/15/2016, 08/04/2016 Technique: Single portable upright frontal view of the chest is provided. Findings: Cardiomediastinal silhouette is within normal limits. No pleural effusions, pulmonary vascular congestion or pneumothorax. The lungs are clear. Radiopaque foreign densities project over the left humeral head, stable dating back to 08/04/2016. Impression: No acute cardiopulmonary process. DICTATED and SIGNED BY: ANGELINE RAMIREZ MD DATE: 10/15/16 1311 Course & Med Decision Making Course & Med Decision Making Patient likely is having a COPD exacerbation however his history of exertional chest pain in a smoker it is quite concerning to me. We'll check labs x-ray treat symptoms and reassess. Given his exertional pain and his risk factors I recommended admission. Patient refused stating that he has pets and other considerations that he cannot stay in the hospital at this time. He verbalized understanding of why I wanted to admit him to the hospital including ruling out life-threatening condition such as ACS. He accepted The risks of and disability by leaving the emergency department against my advice. Patient will be referred to pulmonary and cardiology as he has neither specialist. I will prescribe his Symbicort that he is out of in addition to albuterol. I told Him to not exert himself take an aspirin daily and come back to the emergency Department immediately with worsening pain shortness of breath or other general concerns. Patient aware and agreeable with plan and verbalized understanding of the above instructions. Dragon Disclaimer Dragon Disclaimer This electronic medical record was generated, in whole or in part, using a voice recognition dictation system. Departure Departure Impression: Primary Impression: COPD exacerbation Additional Impression: Chest pain Disposition: 01 HOME, SELF-CARE Condition: STABLE Referrals: PAULA COPELAND MD, SABATO MD Patient Instructions: Chronic Obstructive Pulmonary Disease Exacerbation Additional Instructions: Do not exert herself including mowing the lawn exercise or sexual activity. Take an aspirin daily. Follow with the slip sheeter and associate professor of psychology as soon as possible and come back to the ER sooner with worsening pain fevers or other general concerns. Scripts Budesonide/Formoterol Fumarate (SYMBICORT 160-4.5 MCG INHALER) 10.2 Gm Hfa.aer.ad 2 PUFF IH BID, #1 INHALER 3 Refills Prov: ASPEN ROMERO DO 10/15/16 Prednisone (PREDNISONE) 50 Mg Tablet 1 TAB PO DAILY, #3 TAB START 10-17-16 Prov: ASPEN ROMERO DO 10/15/16 Albuterol Sulfate (PROAIR HFA INHALER) 8.5 Gm Hfa.aer.ad 1 PUFF INH Q4HRS Y for SHORTNESS OF BREATH, #1 INHALER 0 Refills Prov: ASPEN ROMERO DO 10/15/16 Problem Qualifiers ASPEN ROMERO DO Oct 15, 2016 13:50
[2016-10-15 13:52] LABS: ALBUMIN 3.8 g/dL (3.4-5.0); ALBUMIN/GLOBULIN RATIO 1.1 (1.0-1.7); TOTAL BILIRUBIN 0.3 mg/dL (0.2-1.0); TOTAL PROTEIN 7.3 g/dL (6.4-8.2)
[2016-10-15] MEDS ORDERED: BUDE10.2 IH (14:12)
[2016-10-15] MEDS ORDERED: PROAIR HFA8.5 GM INH (14:12)
[2016-10-15] MEDS ORDERED: PRED50TA PO (14:12)
[2016-10-15 14:30] VITALS: BP 128/68
--- NOTE | 2016-10-18 06:38 | EKG ---
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
== END 2016-10-15 14:45 | disposition home or self-care (01) ==
LOC: ER 12:21
DX: J44.1 Chronic obstructive pulmonary disease with (acute) exacerbation (principal); I10 Essential (primary) hypertension; F17.210 Nicotine dependence, cigarettes, uncomplicated; Z88.8 Allergy status to other drugs, medicaments and biological substances
CPT/HCPCS: 36415; 71010; 80053; 83735; 83880; 84484; 85025; 85610; 85730; 93005; 94250; 94640; 96374; 99285; J1100; J7613; J7620

== ENCOUNTER 2016-11-19 02:00 | Emergency (ER) | payer BC, OTHER ==
[~2016-11-19] VITALS: Ht 165.1 cm; Wt 63.5 kg
[~2016-11-19 02:00] MED LIST changes: -NAPR250T2 PO; +NAPR250T6 PO
[2016-11-19 02:27] LABS: BASO % 0 % (0-3); EOS % 6 % (0-3); HEMATOCRIT 47.1 % (39.0-53.0); LYMPH % 35 % (24-48); MEAN CORPUSCULAR HEMOGLOBIN 30 pg (25-35); MEAN CORPUSCULAR HGB CONC 34 g/dL (31-37); MEAN CORPUSCULAR VOLUME 88 fL (79-100); MONO % 10 % (0-9); NEUT % 49 % (31-73); PLATELET COUNT 295 x10^3/uL (140-400); RED BLOOD COUNT 5.38 x10^6/uL (4.30-5.70); RED CELL DISTRIBUTION WIDTH 13.8 % (11.5-14.5); WHITE BLOOD COUNT 11.5 x10^3/uL (4.0-11.0)
[2016-11-19 03:01] LABS: CREATININE 0.8 mg/dL (0.7-1.3); GFR 96.1; POTASSIUM 4.1 mmol/L (3.5-5.1)
[2016-11-19 03:04] LABS: ALBUMIN 3.3 g/dL (3.4-5.0); ALBUMIN/GLOBULIN RATIO 0.9 (1.0-1.7); TOTAL BILIRUBIN 0.3 mg/dL (0.2-1.0); TOTAL PROTEIN 7.1 g/dL (6.4-8.2)
[2016-11-19] MEDS ORDERED: IPRATRPIUM/ALBUTEROL 0.5/2.5MG 3 ML NEBU. NEB ONE (03:15)
[2016-11-19] MEDS ORDERED: methylPREDNISolone SOD SUCC PF 125 MG/2 ML VIAL. IV ONE (03:15)
--- NOTE | 2016-11-19 04:32 | EKG ---
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
[2016-11-19] MEDS ORDERED: PROAIR HFA8.5 GM INH (04:34)
[2016-11-19] MEDS ORDERED: PRED20TA PO (04:34)
[2016-11-19] MEDS ORDERED: BUDE10.2 IH (04:34)
[2016-11-19 05:00] VITALS: BP 160/70
--- NOTE | 2016-11-19 06:44 | ED.ADGEN ---
Past Medical History Past Medical History: COPD, Hypertension Past Surgical History: Other Additional Past Surgical Histo: stent in L leg Alcohol Use: None Drug Use: None Adult General Chief Complaint Chief Complaint: SHORTNESS OF BREATH HPI HPI Patient is a 66 year old man, history of hypertension, COPD, who presents to the emergency department with a complaint of "my COPD is acting up". Patient states that he's been experiencing increasing shortness of breath and wheezing over the past several days, states it is triggered by weather changes, he also has run out of his albuterol and Symbicort. Patient states he is not currently following with a primary care provider. Patient denies any chest pain, any nausea or vomiting, states that he has his "usual cough", productive of clear sputum, no fevers, no chills, no swelling extremities, no rashes, no sick contacts or exposures. He states he still smokes a pack of cigarettes daily, and has done so "all my life". No history of DVT or PE. Review of Systems Review of Systems Constitutional: Denies fever or chills. [] Eyes: Denies change in visual acuity. [] HENT: Denies nasal congestion or sore throat. [] Respiratory: Denies cough or shortness of breath. [] Cardiovascular: Denies chest pain or edema. [] GI: Denies abdominal pain, nausea, vomiting, bloody stools or diarrhea. [] : Denies dysuria. [] Musculoskeletal: Denies back pain or joint pain. [] Integument: Denies rash. [] Neurologic: Denies headache, focal weakness or sensory changes. [] Endocrine: Denies polyuria or polydipsia. [] Lymphatic: Denies swollen glands. [] Psychiatric: Denies depression or anxiety. [] Current Medications Current Medications Current Medications Medications (Trade) Dose Ordered Sig/Wiliam Start Time Stop Time Status Last Admin Dose Admin Albuterol/ Ipratropium (Duoneb) 3 ml 1X ONCE 11/19/16 03:15 11/19/16 03:47 DC 11/19/16 03:20 3 ML Methylprednisolone Sodium Succinate (SOLU-Medrol 125MG VIAL) 125 mg 1X ONCE 11/19/16 03:15 11/19/16 03:47 DC 11/19/16 03:25 125 MG Allergies Allergies Allergies Coded Allergies Type Severity Reaction Last Updated Verified chlorpheniramine Allergy Severe STOPPED BREATHING 08/15/16 Yes pseudoephedrine Allergy Severe STOPPED BREATHING 08/15/16 Yes Physical Exam Physical Exam Constitutional: Well developed, well nourished, no acute distress, non-toxic appearance. [] HENT: Normocephalic, atraumatic, bilateral external ears normal, oropharynx moist, no oral exudates, nose normal. [] Eyes: PERRLA, EOMI, conjunctiva normal, no discharge. [] Neck: Normal range of motion, no tenderness, supple, no stridor. [] Cardiovascular:Heart rate regular rhythm, no murmur , S1, S2, no rubs or gallops.[] Lungs & Thorax: Patient with coarse wheezing noted throughout upper and lower lung kong, wheezing is worse with expiration, no rhonchi or rales identified. No chest or crepitus or tenderness. Abdomen: Bowel sounds normal, soft, no tenderness, no masses, no rebound, rigidity, no guarding no pulsatile masses. [] Skin: Warm, dry, no erythema, no rash. [] Back: No tenderness, no CVA tenderness. [] Extremities: No tenderness, no cyanosis, no clubbing, ROM intact, no edema. Negative Homans sign. [] Neurologic: Alert and oriented X 3, normal motor function, normal sensory function, no focal deficits noted. [] Psychologic: Affect normal, judgement normal, mood normal. [] Current Patient Data Vital Signs Vital Signs Date Time Temp Pulse Resp B/P (MAP) Pulse Ox O2 Delivery O2 Flow Rate FiO2 11/19/16 05:00 66 22 160/70 (100) 94 11/19/16 03:22 Room Air 11/19/16 02:10 97.8 97.8 Lab Values Laboratory Tests Test 11/19/16 02:15 White Blood Count 11.5 x10^3/uL (4.0-11.0) H Red Blood Count 5.38 x10^6/uL (4.30-5.70) Hemoglobin 16.0 g/dL (13.0-17.5) Hematocrit 47.1 % (39.0-53.0) Mean Corpuscular Volume 88 fL (79-100) Mean Corpuscular Hemoglobin 30 pg (25-35) Mean Corpuscular Hemoglobin Concent 34 g/dL (31-37) Red Cell Distribution Width 13.8 % (11.5-14.5) Platelet Count 295 x10^3/uL (140-400) Neutrophils (%) (Auto) 49 % (31-73) Lymphocytes (%) (Auto) 35 % (24-48) Monocytes (%) (Auto) 10 % (0-9) H Eosinophils (%) (Auto) 6 % (0-3) H Basophils (%) (Auto) 0 % (0-3) Neutrophils # (Auto) 5.6 x10^3uL (1.8-7.7) Lymphocytes # (Auto) 4.0 x10^3/uL (1.0-4.8) Monocytes # (Auto) 1.2 x10^3/uL (0.0-1.1) H Eosinophils # (Auto) 0.7 x10^3/uL (0.0-0.7) Basophils # (Auto) 0.0 x10^3/uL (0.0-0.2) Sodium Level 142 mmol/L (136-145) Potassium Level 4.1 mmol/L (3.5-5.1) Chloride Level 104 mmol/L (98-107) Carbon Dioxide Level 30 mmol/L (21-32) Anion Gap 8 (6-14) Blood Urea Nitrogen 19 mg/dL (8-26) Creatinine 0.8 mg/dL (0.7-1.3) Estimated GFR (Cockcroft-Gault) 96.1 BUN/Creatinine Ratio 24 (6-20) H Glucose Level 103 mg/dL (70-99) H Calcium Level 9.0 mg/dL (8.5-10.1) Total Bilirubin 0.3 mg/dL (0.2-1.0) Aspartate Amino Transferase (AST) 27 U/L (15-37) Alanine Aminotransferase (ALT) 24 U/L (16-63) Alkaline Phosphatase 81 U/L (46-116) Troponin I Quantitative < 0.017 ng/mL (0.000-0.055) HB-Epl-G-Type Natriuretic Peptide 86 pg/mL (0-124) Total Protein 7.1 g/dL (6.4-8.2) Albumin 3.3 g/dL (3.4-5.0) L Albumin/Globulin Ratio 0.9 (1.0-1.7) L Laboratory Tests 11/19/16 02:15 Laboratory Tests 11/19/16 02:15 EKG EKG EC: Upright axis, QTC of 413, DE of 146, QRS of 82, patient with contour normality is noted in the anterior lateral leads, and mild baseline artifact noted, no ST elevations or depressions, abnormal ECG, does not meet STEMI criteria. As interpreted by me.[] Radiology/Procedures Radiology/Procedures Chest x-ray: Two-view: Patient with hyperinflation, normal cardiac silhouette, no focal infiltrates, effusions, pneumothorax, soft tissue or bony abnormalities identified. As interpreted by me.[] Course & Med Decision Making Course & Med Decision Making Pertinent Labs and Imaging studies reviewed. (See chart for details) Patient is requesting an nebulizer treatment and steroids, states "then I will ready to go home". States he did run out of his usual medications, is experiencing an exacerbation due to weather changes. Oxygen saturation is 93-96 % on room air, respiratory rate is 20-22 and unlabored. Patient noted to have coarse wheezing throughout the lung kong bilaterally. DuoNeb and Solu-Medrol ordered in the ED. On reevaluation patient states that he is feeling much better and is ready go home. Patient with ambulatory trial in the emergency department, oxygen saturation between 95-92% on room air, patient ambulating without recurrence of symptoms, and without difficulty. Patient is anxious to be discharged, we did discuss concerning symptoms that prompt return to the ED, importance of establishing a general medical practitioner for follow-up and care. Patient voiced understanding and agreement. Patient discharged with a four -day course of prednisone, 40 mg daily, prescriptions for albuterol and Symbicort. Patient discharged home in stable condition with plan, prescriptions , and precautions as stated. Dragon Disclaimer Dragon Disclaimer This electronic medical record was generated, in whole or in part, using a voice recognition dictation system. Departure Impression: Primary Impression: COPD exacerbation Disposition: HOME, SELF-CARE Condition: IMPROVED Scripts Budesonide/Formoterol Fumarate (SYMBICORT 160-4.5 MCG INHALER) 10.2 Gm Hfa.aer.ad 2 PUFF IH BID, #1 INHALER 0 Refills Prov: SAGE TEJADA DO 11/19/16 Albuterol Sulfate (PROAIR HFA INHALER) 8.5 Gm Hfa.aer.ad 1 PUFF INH PRN Q4HRS Y for SHORTNESS OF BREATH, #1 INHALER 0 Refills Prov: SAGE TEJADA DO 11/19/16 Prednisone (PREDNISONE) 20 Mg Tablet 2 TAB PO DAILY, #8 TAB Prov: SAGE TEJADA DO 11/19/16 SAGE TEJADA DO Nov 19, 2016 06:44
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
== END 2016-11-19 05:03 | disposition home or self-care (01) ==
LOC: ER 02:00
DX: J44.1 Chronic obstructive pulmonary disease with (acute) exacerbation (principal); I10 Essential (primary) hypertension; F17.210 Nicotine dependence, cigarettes, uncomplicated; Z88.8 Allergy status to other drugs, medicaments and biological substances
CPT/HCPCS: 36415; 71010; 80053; 83880; 84484; 85025; 93005; 94640; 96374; 99285; J2930; J7620

== ENCOUNTER 2017-01-16 19:42 | Emergency (ER) | payer BC, MEDICAID ==
[~2017-01-16] VITALS: Ht 165.1 cm; Wt 68.0 kg
[~2017-01-16 19:42] MED LIST changes: +DOXY100C2 PO; +IPRA0.2S5 NEB
--- NOTE | 2017-01-16 19:45 | PHYS DOC ---
Past Medical History Past Medical History: COPD, Hypertension Past Surgical History: Other Additional Past Surgical Histo: stent in L leg Alcohol Use: None Drug Use: None Adult General Chief Complaint Chief Complaint: CHEST PAIN [facility] HPI Patient is a 66 year old male who presents with chest pain. He states is a burning sensations over his right chest he does not radiate, he did not become nauseated or short of breath or have any diaphoresis associated with this. He states sometimes is worse with ambulating. He also states sometimes it is worse when he smokes cigarettes. He states he's trying to cut down on the mask smoking is doing. He states he's been using Tums and Mylanta this helps with the discomfort. He states the pain is intermittent and comes on for about 20 minutes and then goes away and comes on again for no reason at times. Other times when he is ambulating it comes on. Currently he states he has no chest discomfort. He states he's had a stress test was been many years ago. He states he's has a family history of strokes but not sure if he is at family history of heart disease. He does have COPD and has to wear oxygen at night and has albuterol inhaler. He did state he took 3 baby aspirin's at home today. Review of Systems Review of Systems Constitutional: Denies fever or chills [] Eyes: Denies change in visual acuity, redness, or eye pain [] HENT: Denies nasal congestion or sore throat [] Respiratory: Denies cough or shortness of breath [] Cardiovascular: No additional information not addressed in HPI [] GI: Denies abdominal pain, nausea, vomiting, bloody stools or diarrhea [] : Denies dysuria or hematuria [] Musculoskeletal: Denies back pain or joint pain [] Integument: Denies rash or skin lesions [] Neurologic: Denies headache, focal weakness or sensory changes [] Endocrine: Denies polyuria or polydipsia [] All other systems were reviewed and found to be within normal limits, except as documented in this note. Allergies Allergies Allergies Coded Allergies Type Severity Reaction Last Updated Verified chlorpheniramine Allergy Severe STOPPED BREATHING 08/15/16 Yes pseudoephedrine Allergy Severe STOPPED BREATHING 12/12/16 Yes Physical Exam Physical Exam Constitutional: Well developed, well nourished, no acute distress, non-toxic appearance. [] HENT: Normocephalic, atraumatic, bilateral external ears normal, oropharynx moist, no oral exudates, nose normal. [] Eyes: PERRLA, EOMI, conjunctiva normal, no discharge. [] Neck: Normal range of motion, no tenderness, supple, no stridor. [] Cardiovascular:Heart rate regular rhythm, no murmur [] Lungs & Thorax: Bilateral breath sounds clear to auscultation [] Abdomen: Bowel sounds normal, soft, no tenderness, no masses, no pulsatile masses. [] Skin: Warm, dry, no erythema, no rash. [] Back: No tenderness, no CVA tenderness. [] Extremities: No tenderness, no cyanosis, no clubbing, ROM intact, no edema. [] Neurologic: Alert and oriented X 3, normal motor function, normal sensory function, no focal deficits noted. [] Psychologic: Affect normal, judgement normal, mood normal. [] Current Patient Data Vital Signs Vital Signs Date Time Temp Pulse Resp B/P (MAP) Pulse Ox O2 Delivery O2 Flow Rate FiO2 01/16/17 19:44 97.9 84 20 186/88 (120) 94 Room Air 97.9 Lab Values Laboratory Tests Test 01/16/17 19:52 White Blood Count 18.3 x10^3/uL (4.0-11.0) H Red Blood Count 5.38 x10^6/uL (4.30-5.70) Hemoglobin 15.7 g/dL (13.0-17.5) Hematocrit 47.9 % (39.0-53.0) Mean Corpuscular Volume 89 fL (79-100) Mean Corpuscular Hemoglobin 29 pg (25-35) Mean Corpuscular Hemoglobin Concent 33 g/dL (31-37) Red Cell Distribution Width 15.7 % (11.5-14.5) H Platelet Count 312 x10^3/uL (140-400) Neutrophils (%) (Auto) 66 % (31-73) Lymphocytes (%) (Auto) 25 % (24-48) Monocytes (%) (Auto) 7 % (0-9) Eosinophils (%) (Auto) 1 % (0-3) Basophils (%) (Auto) 1 % (0-3) Neutrophils # (Auto) 12.1 x10^3uL (1.8-7.7) H Lymphocytes # (Auto) 4.6 x10^3/uL (1.0-4.8) Monocytes # (Auto) 1.3 x10^3/uL (0.0-1.1) H Eosinophils # (Auto) 0.1 x10^3/uL (0.0-0.7) Basophils # (Auto) 0.2 x10^3/uL (0.0-0.2) Segmented Neutrophils % 62 % (35-66) Band Neutrophils % 1 % (0-9) Lymphocytes % 30 % (24-48) Monocytes % 5 % (0-10) Eosinophils % 2 % (0-5) Toxic Granulation Slight Platelet Estimate Adequate (ADEQUATE) Sodium Level 140 mmol/L (136-145) Potassium Level 4.1 mmol/L (3.5-5.1) Chloride Level 103 mmol/L (98-107) Carbon Dioxide Level 33 mmol/L (21-32) H Anion Gap 4 (6-14) L Blood Urea Nitrogen 30 mg/dL (8-26) H Creatinine 1.1 mg/dL (0.7-1.3) Estimated GFR (Cockcroft-Gault) 66.6 Glucose Level 99 mg/dL (70-99) Calcium Level 8.9 mg/dL (8.5-10.1) Total Bilirubin 0.3 mg/dL (0.2-1.0) Direct Bilirubin 0.1 mg/dL (0.0-0.2) Aspartate Amino Transferase (AST) 20 U/L (15-37) Alanine Aminotransferase (ALT) 34 U/L (16-63) Alkaline Phosphatase 57 U/L (46-116) Creatine Kinase 87 U/L (39-308) Creatine Kinase MB (Mass) 1.4 ng/mL (0.0-3.6) Creatine Kinase MB Relative Index 1.6 % (0-4) Troponin I Quantitative < 0.017 ng/mL (0.000-0.055) PO-Zqp-P-Type Natriuretic Peptide 51 pg/mL (0-124) Total Protein 6.9 g/dL (6.4-8.2) Albumin 3.2 g/dL (3.4-5.0) L Laboratory Tests 01/16/17 19:52 Laboratory Tests 01/16/17 19:52 EKG EKG EKG shows sinus rhythm with rate of [address] elevations or inversion noted in lead aVL, normal axis, QTC 407 ms, as interpreted by me. Radiology/Procedures Radiology/Procedures View chest x-ray did not show any focal consolidations, bony abnormality's, pneumothorax, as interpreted by me. Impressions: Chest pain Tobacco abuse COPD Course & Med Decision Making Course & Med Decision Making Pertinent Labs and Imaging studies reviewed. (See chart for details) Patient was seen for chest pain that has been intermittent. It's worse when he drinks, smokes and ambulates. He took some Tums and Maalox and this made it better. His EKG does not show any ST elevations or other concerning symptoms chest x-ray also his labs initially are normal. I recommended hospitalization however he is refusing to be hospitalized and is aside to check out AGAINST MEDICAL ADVICE. He was informed that he might be having a heart attack and we cannot for sure states that he's not having ongoing ischemic issues with his heart. States he understands this and is willing to accept these responsibilities. He is instructed return back to ER if he changes his mind or if symptoms get worse or has any other concerns. Dragon Disclaimer Dragon Disclaimer This electronic medical record was generated, in whole or in part, using a voice recognition dictation system. Departure Departure Impression: Primary Impression: Chest pain Disposition: 07 AGAINST MEDICAL ADVICE Condition: STABLE Referrals: NO PCP (PCP) Patient Instructions: Chest Pain (Nonspecific), [id number] Additional Instructions: You were seen today for your chest pain. You should stay and be admitted to the hospital and have cardiology evaluate you. You do not want to stay in your leaving his medical advice. You not sure that your chest pain was not cause per your heart you might be having a heart attack. If you change your mind please return back to ER. LEE SOUTH MD Jan 16, 2017 19:45
[2017-01-16 20:01] LABS: BASO # 0.2 x10^3/uL (0.0-0.2); BASO % 1 % (0-3); EOS % 1 % (0-3); HEMATOCRIT 47.9 % (39.0-53.0); HEMOGLOBIN 15.7 g/dL (13.0-17.5); LYMPH # 4.6 x10^3/uL (1.0-4.8); LYMPH % 25 % (24-48); MEAN CORPUSCULAR HEMOGLOBIN 29 pg (25-35); MEAN CORPUSCULAR HGB CONC 33 g/dL (31-37); MEAN CORPUSCULAR VOLUME 89 fL (79-100); MONO % 7 % (0-9); NEUT % 66 % (31-73); PLATELET COUNT 312 x10^3/uL (140-400); RED BLOOD COUNT 5.38 x10^6/uL (4.30-5.70); RED CELL DISTRIBUTION WIDTH 15.7 % (11.5-14.5); WHITE BLOOD COUNT 18.3 x10^3/uL (4.0-11.0)
[2017-01-16 20:09] LABS: CALCIUM 8.9 mg/dL (8.5-10.1); CREATININE 1.1 mg/dL (0.7-1.3); GFR 66.6; POTASSIUM 4.1 mmol/L (3.5-5.1)
[2017-01-16 20:16] LABS: % EOS 2 % (0-5); ALBUMIN 3.2 g/dL (3.4-5.0); DIRECT BILIRUBIN 0.1 mg/dL (0.0-0.2); TOTAL BILIRUBIN 0.3 mg/dL (0.2-1.0); TOTAL PROTEIN 6.9 g/dL (6.4-8.2)
[2017-01-16 20:19] LABS: PLT ESTIMATE ADEQUATE (ADEQUATE); TOXIC GRANULATION SLIGHT
[2017-01-16 20:25] LABS: CKMB MASS 1.4 ng/mL (0.0-3.6)
[2017-01-16 20:30] VITALS: BP 157/87
--- NOTE | 2017-01-17 06:10 | EKG ---
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
== END 2017-01-16 20:55 | disposition left against medical advice (07) ==
LOC: ER 19:42
DX: R07.89 Other chest pain (principal); J44.9 Chronic obstructive pulmonary disease, unspecified; I10 Essential (primary) hypertension; F17.210 Nicotine dependence, cigarettes, uncomplicated; Z99.81 Dependence on supplemental oxygen; Z79.899 Other long term (current) drug therapy; Z88.8 Allergy status to other drugs, medicaments and biological substances
CPT/HCPCS: 36415; 71010; 80048; 80076; 82553; 83880; 84484; 85007; 85025; 93005; 99285-25

== ENCOUNTER 2017-01-31 14:11 | Inpatient (IN) | payer BC, MEDICAID ==
[~2017-01-31] VITALS: Ht 165.1 cm; Wt 70.3 kg
[2017-01-31] MEDS ORDERED: IV NORMAL SALINE 1000ML BAG 1,000 ML IV SCH (14:33)
--- NOTE | 2017-01-31 14:38 | EKG ---
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
[2017-01-31] MEDS ORDERED: ASPIRIN CHEWABLE 81 MG TABLET. PO ONE (14:45)
[2017-01-31] MEDS ORDERED: methylPREDNISolone SOD SUCC PF 125 MG/2 ML VIAL. IV ONE (14:45)
[2017-01-31] MEDS ORDERED: CIPROFLOXACIN 400MG PREMIX 200 ML IV ONE (14:45)
[2017-01-31] MEDS ORDERED: 0.9 % SODIUM CHLORIDE 10 ML DISP.SYRIN. IV ONE (14:45)
[2017-01-31] MEDS ORDERED: IPRATRPIUM/ALBUTEROL 0.5/2.5MG 3 ML NEBU. NEB ONE (14:45)
[2017-01-31 14:56] LABS: BASO # 0.2 x10^3/uL (0.0-0.2); BASO % 1 % (0-3); EOS % 0 % (0-3); HEMATOCRIT 51.3 % (39.0-53.0); HEMOGLOBIN 17.1 g/dL (13.0-17.5); LYMPH # 2.8 x10^3/uL (1.0-4.8); LYMPH % 15 % (24-48); MEAN CORPUSCULAR HEMOGLOBIN 30 pg (25-35); MEAN CORPUSCULAR HGB CONC 33 g/dL (31-37); MEAN CORPUSCULAR VOLUME 89 fL (79-100); MONO % 7 % (0-9); NEUT % 77 % (31-73); PLATELET COUNT 344 x10^3/uL (140-400); RED BLOOD COUNT 5.79 x10^6/uL (4.30-5.70); RED CELL DISTRIBUTION WIDTH 15.8 % (11.5-14.5); WHITE BLOOD COUNT 18.6 x10^3/uL (4.0-11.0)
--- NOTE | 2017-01-31 15:00 | RAD ---
EXAM: CHEST 1 VIEW History: Trouble breathing , unable to lay flat COMPARISON: 01/16/2017 TECHNIQUE: Single portable radiograph of the chest FINDINGS: The cardiac silhouette is unremarkable. The lungs are clear bilaterally. The costophrenic sulci are clear and well demarcated. IMPRESSION: No radiographic evidence of an acute cardiopulmonary process.
[2017-01-31 15:13] LABS: CALCIUM 9.3 mg/dL (8.5-10.1); CREATININE 0.9 mg/dL (0.7-1.3); GFR 83.9; POTASSIUM 4.5 mmol/L (3.5-5.1)
[2017-01-31 15:14] LABS: HCO3 ABG 29 mmol/L (21-28); PCO2 ABG 49 mmHg (35-46); PH ABG 7.39 (7.35-7.45); PO2 ABG 67 mmHg (65-108); SAT O2 ABG 94 % (92-99)
--- NOTE | 2017-01-31 15:16 | PHYS DOC ---
Past Medical History Past Medical History: COPD, High Cholesterol, Hypertension, Vascular Disease Past Surgical History: Other Additional Past Surgical Histo: stent in L leg Smoking: Cigarettes, Greater than 1 pack/day Additional Information: 1 PPD Alcohol Use: None Drug Use: None Adult General Chief Complaint Chief Complaint: SHORTNESS OF BREATH HPI HPI Is a pleasant 66-year-old male with a known history of heart disease, COPD, hypertension and peripheral vascular disease and presents with chest tightness has gotten worse over last 2-3 days. He does not have a primary care doctor or a control panel assembler that he sees for his COPD but he is on routine neb treatments by metered-dose inhaler when he needs. Over the last several days he's had increasing shortness breath with exertion and increased oxygen demand requiring him to use 2.5 L of oxygen at night and during the day now with exertion. Patient denies any chest pain as a tightness across his chest when he tries to breathe. He has had a nonproductive cough with no URI symptoms, no viral syndrome, no flulike symptoms. Patient denies any edema in his lower legs or weight gain. Patient denies any dizziness, nausea, vomiting, diarrhea or abdominal pain. He denies any recent travel outside the country, sick contacts or recent antibiotic use. Review of Systems Review of Systems Constitutional: Denies fever or chills [] Eyes: Denies change in visual acuity, redness, or eye pain [] HENT: Denies nasal congestion or sore throat [] Respiratory: Denies cough or shortness of breath [] Cardiovascular: No additional information not addressed in HPI [] GI: Denies abdominal pain, nausea, vomiting, bloody stools or diarrhea [] : Denies dysuria or hematuria [] Musculoskeletal: Denies back pain or joint pain [] Integument: Denies rash or skin lesions [] Neurologic: Denies headache, focal weakness or sensory changes [] Endocrine: Denies polyuria or polydipsia [] All other systems were reviewed and found to be within normal limits, except as documented in this note. Current Medications Current Medications Current Medications Medications (Trade) Dose Ordered Sig/Wiliam Start Time Stop Time Status Last Admin Dose Admin Albuterol/ Ipratropium (Duoneb) 3 ml 1X ONCE 01/31/17 14:45 01/31/17 14:46 DC 01/31/17 14:44 3 ML Aspirin (Children'S Aspirin) 324 mg 1X ONCE 01/31/17 14:45 01/31/17 14:46 DC 01/31/17 14:57 324 MG Ciprofloxacin/ Dextrose 200 ml @ 200 mls/hr 1X ONCE 01/31/17 14:45 01/31/17 15:44 DC 01/31/17 15:02 200 MLS/HR Lorazepam (Ativan) 1 mg 1X ONCE 01/31/17 14:45 01/31/17 14:46 DC 01/31/17 14:59 1 MG Methylprednisolone Sodium Succinate (SOLU-Medrol 125MG VIAL) 125 mg 1X ONCE 01/31/17 14:45 01/31/17 14:46 DC 01/31/17 14:56 125 MG Sodium Chloride 1,000 ml @ 1,000 mls/hr Q1H 01/31/17 14:33 01/31/17 15:32 DC 01/31/17 14:56 1,000 MLS/HR Sodium Chloride (Normal Saline Flush) 10 ml 1X ONCE 01/31/17 14:45 01/31/17 14:46 DC 01/31/17 14:59 10 ML Allergies Allergies Allergies Coded Allergies Type Severity Reaction Last Updated Verified chlorpheniramine Allergy Severe STOPPED BREATHING 08/15/16 Yes pseudoephedrine Allergy Severe STOPPED BREATHING 12/12/16 Yes Physical Exam Physical Exam Constitutional: Well developed, well nourished, no acute distress, non-toxic appearance. [] HENT: Normocephalic, atraumatic, bilateral external ears normal, oropharynx moist, no oral exudates, nose normal. [] Eyes: PERRLA, EOMI, conjunctiva normal, no discharge. [] Neck: Normal range of motion, no tenderness, supple, no stridor. [] Cardiovascular:Heart rate regular rhythm, no murmur [] Lungs & Thorax: Bilateral breath sounds clear to auscultation [] Abdomen: Bowel sounds normal, soft, no tenderness, no masses, no pulsatile masses. [] Skin: Warm, dry, no erythema, no rash. [] Back: No tenderness, no CVA tenderness. [] Extremities: No tenderness, no cyanosis, no clubbing, ROM intact, no edema. [] Neurologic: Alert and oriented X 3, normal motor function, normal sensory function, no focal deficits noted. [] Psychologic: Affect normal, judgement normal, mood normal. [] Current Patient Data Vital Signs Vital Signs Date Time Temp Pulse Resp B/P (MAP) Pulse Ox O2 Delivery O2 Flow Rate FiO2 01/31/17 15:19 78 24 157/95 (115) 94 Room Air 01/31/17 14:17 98.1 98.1 Lab Values Laboratory Tests Test 01/31/17 14:22 01/31/17 14:33 White Blood Count 18.6 x10^3/uL (4.0-11.0) H Red Blood Count 5.79 x10^6/uL (4.30-5.70) H Hemoglobin 17.1 g/dL (13.0-17.5) Hematocrit 51.3 % (39.0-53.0) Mean Corpuscular Volume 89 fL (79-100) Mean Corpuscular Hemoglobin 30 pg (25-35) Mean Corpuscular Hemoglobin Concent 33 g/dL (31-37) Red Cell Distribution Width 15.8 % (11.5-14.5) H Platelet Count 344 x10^3/uL (140-400) Neutrophils (%) (Auto) 77 % (31-73) H Lymphocytes (%) (Auto) 15 % (24-48) L Monocytes (%) (Auto) 7 % (0-9) Eosinophils (%) (Auto) 0 % (0-3) Basophils (%) (Auto) 1 % (0-3) Neutrophils # (Auto) 14.4 x10^3uL (1.8-7.7) H Lymphocytes # (Auto) 2.8 x10^3/uL (1.0-4.8) Monocytes # (Auto) 1.3 x10^3/uL (0.0-1.1) H Eosinophils # (Auto) 0.0 x10^3/uL (0.0-0.7) Basophils # (Auto) 0.2 x10^3/uL (0.0-0.2) Segmented Neutrophils % 79 % (35-66) H Band Neutrophils % 3 % (0-9) Lymphocytes % 14 % (24-48) L Monocytes % 3 % (0-10) Eosinophils % 1 % (0-5) Toxic Granulation Slight Platelet Estimate Adequate (ADEQUATE) Sodium Level 141 mmol/L (136-145) Potassium Level 4.5 mmol/L (3.5-5.1) Chloride Level 102 mmol/L (98-107) Carbon Dioxide Level 30 mmol/L (21-32) Anion Gap 9 (6-14) Blood Urea Nitrogen 29 mg/dL (8-26) H Creatinine 0.9 mg/dL (0.7-1.3) Estimated GFR (Cockcroft-Gault) 83.9 Glucose Level 73 mg/dL (70-99) Lactic Acid Level 1.4 mmol/L (0.4-2.0) Calcium Level 9.3 mg/dL (8.5-10.1) Magnesium Level 2.2 mg/dL (1.8-2.4) Total Bilirubin 0.3 mg/dL (0.2-1.0) Direct Bilirubin 0.1 mg/dL (0.0-0.2) Aspartate Amino Transferase (AST) 22 U/L (15-37) Alanine Aminotransferase (ALT) 22 U/L (16-63) Alkaline Phosphatase 64 U/L (46-116) Creatine Kinase 76 U/L (39-308) Creatine Kinase MB (Mass) 1.0 ng/mL (0.0-3.6) Creatine Kinase MB Relative Index 1.3 % (0-4) Troponin I Quantitative < 0.017 ng/mL (0.000-0.055) JA-[id number]-P-Type Natriuretic Peptide 53 pg/mL (0-124) Total Protein 6.9 g/dL (6.4-8.2) Albumin 3.5 g/dL (3.4-5.0) Lipase 140 U/L (73-393) Thyroid Stimulating Hormone (TSH) 0.676 uIU/mL (0.358-3.74) O2 Saturation 94 % (92-99) Arterial Blood pH 7.39 (7.35-7.45) Arterial Blood pCO2 at Patient Temp 49 mmHg (35-46) H Arterial Blood pO2 at Patient Temp 67 mmHg (65-108) Arterial Blood HCO3 29 mmol/L (21-28) H Arterial Blood Base Excess 3 mmol/L (-3-3) FiO2 21 Laboratory Tests 01/31/17 14:22 Laboratory Tests 01/31/17 14:22 EKG EKG [] Radiology/Procedures Radiology/Procedures [] Course & Med Decision Making Course & Med Decision Making Pertinent Labs and Imaging studies reviewed. (See chart for details) []Patient presents with a known history of COPD he is committed noncompliant with medications presents with shortness of breath. Differential diagnosis: Acute myocardial ischemia, heart failure, cardiac tamponade, bronchospasm, pulmonary embolism, pneumothorax, pulmonary infection i.e. bronchitis or pneumonia, upper airway obstruction, anaphylaxis, aspiration, psychogenic, pulmonary contusion, toxidrome, pneumomediastinum, noncardiogenic pulmonary edema or ARDS, COPD, tuberculosis, cystic fibrosis, asthma, high altitude pulmonary edema, valvular dysfunction, cardiac dysrhythmia, stroke, neuromuscular diseases like myasthenia gravis gravis, ALS, Guillain-Bourne syndrome, metabolic acidosis to include diabetic ketoacidosis, sepsis, and obstructive disorders like massive obesity Insert his EKG which is read by me demonstrates a heart rate of 91 there is a P- wave every QRS sinus rhythm there is no asymmetry with changes consistent with acute ischemia. Patient's MD interval is 144 which is normal, QRS width is 70 which is normal, QTc 388 which is normal. This is a normal EKG. Was immediately given a course of Solu-Medrol, 3 duo nebs to include ipratropium , patient was also given fluids, and Cipro Floxin after blood cultures and lactic acid was completed. Patient given straight a white count of 18,000.6 with left shift. Patient's troponin is negative, patient's proBNP is normal. His lactic acid is normal at 1.4. Patient's chest x-rays unremarkable signs of congestive heart failure or infiltrate. AP chest read by me Patient has no PCP and no follow-up at home. Given the fact that he is improved his symptoms he is no longer hypoxic his ABG demonstrated no significant hypoxia but he is still wheezing on physical exam. Because of these facts and he does not have good support system at home being single we will admit him to the hospital to arrange outpatient arrangements for evaluation by control panel assembler. Cartridge Assembling Machine Adjuster note: Dr. Latonia dougherty Cartridge Assembling Machine Adjuster called at of the service initially paged at 3:30 PM 1 Consult called back at 3:31 PM Discussed the case I presented and they agreed with admission. Time of acceptance 3:31 PM "I have assessed this patient clinically and believe that their condition requires an admission to the hospital. After consulting the admitting physician about this case, they have asked that I admit this patient to their service as an inpatient based on the clinical presentation and my impression." I spent approximately 45-50 minutes working and engaged directly in the patient care providing critical care evaluation this includes but not limited to time spent engaged in work directly related to the individual patients care. I spent time at the bedside, reviewing test results, discussing the case with staff, documenting the medical record and time spent with EMS discussing specific treatment issues when the patient presented and during his evaluation. Dragon Disclaimer Dragon Disclaimer This electronic medical record was generated, in whole or in part, using a voice recognition dictation system. Departure Departure Impression: Primary Impression: COPD exacerbation Additional Impression: Chest pain Disposition: ADMITTED INPATIENT Admitting Physician: Latonia Dougherty Condition: GUARDED Referrals: NO PCP (PCP) Problem Qualifiers WALESKA KIM MD Jan 31, 2017 15:16
[2017-01-31 15:18] LABS: ALBUMIN 3.5 g/dL (3.4-5.0); DIRECT BILIRUBIN 0.1 mg/dL (0.0-0.2); MAGNESIUM 2.2 mg/dL (1.8-2.4); TOTAL BILIRUBIN 0.3 mg/dL (0.2-1.0); TOTAL PROTEIN 6.9 g/dL (6.4-8.2)
[2017-01-31 15:21] LABS: FIO2 ABG 21
[2017-01-31 15:24] LABS: % EOS 1 % (0-5)
[2017-01-31 15:30] LABS: PLT ESTIMATE ADEQUATE (ADEQUATE); TOXIC GRANULATION SLIGHT
[2017-01-31] MEDS ORDERED: NICOTINE 21MG PATCH. TD PRN (15:30)
[2017-01-31] MEDS ORDERED: ALBUTEROL SULFATE 2.5 MG/3 ML NEBU. CONT NEB ONE (15:30)
[2017-01-31] MEDS ORDERED: NON FORMULARY ITEM (Albuterol Sulfate (Proair Hfa Inhaler) 1 PUFF) INH PRN (15:30)
[2017-01-31] MEDS ORDERED: NICOTINE POLACRILEX 2MG GUM PACKAGE of 12. BC PRN (15:30)
--- NOTE | 2017-01-31 15:31 | PDOC1 ---
History and Physical Date of Admission Date of Admission DATE: 01/31/17 TIME: 15:25 Identification/Chief Complaint Chief Complaint cough, dyspnea Problems: Source Source: Chart review, Patient History of Present Illness History of Present Illness Mr. Martínez, a 66-year-old male admit from the ER, with chest tightness, cough and dyspnea, has gotten worse over last 2-3 days. He has been here before, inpatient, has not followed with pULM, has been to [facility] , ACS ruled out per his story, possible stent placed in his leg, but he is on no medicine for this. unsure of who is PCP is, asked me to recommend one, he has pain with deep breathing, cough with forced inspiration, he still works in [employer], still smokes 1ppd, he would like to stay active Past Medical History Cardiovascular: HTN, Other Pulmonary: COPD GI: No pertinent hx Psych: No pertinent hx Infectious disease: No pertinent hx ENT: No pertinent hx Renal/: No pertinent hx Endocrine: No pertinent hx Past Surgical History Past Surgical History: No pertinent history Family History Family History: Hypertension Social History Smoke: 1 pack per day ALCOHOL: rare Drugs: None Current Medications Current Medications Current Medications Sodium Chloride (Normal Saline Flush) 10 ml 1X ONCE IV Last administered on 14:59; Start 01/31/17 at 14:45; Stop 01/31/17 at 14:46; Status DC Sodium Chloride 1,000 ml @ 1,000 mls/hr Q1H IV Last administered on 01/31/17 14:56; Start 01/31/17 at 14:33; Stop 01/31/17 at 15:32 Albuterol/ Ipratropium (Duoneb) 3 ml 1X ONCE NEB Last administered on 14:44; Start 01/31/17 at 14:45; Stop 01/31/17 at 14:46; Status DC Lorazepam (Ativan) 1 mg 1X ONCE IV Last administered on 01/31/17 14:59; Start 01/31/17 at 14:45; Stop 01/31/17 at 14:46; Status DC Methylprednisolone Sodium Succinate (SOLU-Medrol 125MG VIAL) 125 mg 1X ONCE IV Last administered on 01/31/17 14:56; Start 01/31/17 at 14:45; Stop 01/31/17 at 14:46; Status DC Aspirin (Children'S Aspirin) 324 mg 1X ONCE PO Last administered on 01/31/17 14:57; Start 01/31/17 at 14:45; Stop 01/31/17 at 14:46; Status DC Ciprofloxacin/ Dextrose 200 ml @ 200 mls/hr Q12HR IV ; Start 01/31/17 at 21:00 ; Status UNV Ciprofloxacin/ Dextrose 200 ml @ 200 mls/hr 1X ONCE IV Last administered on 01/31/17 15:02; Start 01/31/17 at 14:45; Stop 01/31/17 at 15:44 Active Scripts Active Doxycycline Hyclate 100 Mg Capsule 1 Cap PO BID Prednisone 10 Mg Tablet 10 Mg PO UD Take 3 tablets by mouth twice a day for 3 days, then take 2 tablets by mouth twice a day for 3 days, then take 1 tablet by mouth twice a day for 3 days, then take 1 tablet by mouth daily x 3 days, then stop. Ipratropium Dawn 0.2 Mg/1 Ml Solution 1 Vial NEB QID Proair Hfa Inhaler (Albuterol Sulfate) 8.5 Gm Hfa.aer.ad 1 Puff INH PRN Q4HRS PRN Symbicort 160-4.5 Mcg Inhaler (Budesonide/Formoterol Fumarate) 10.2 Gm Hfa.aer.ad 2 Puff IH BID Lisinopril 20 Mg Tablet 1 Tab PO DAILY Proair Hfa Inhaler (Albuterol Sulfate) 8.5 Gm Hfa.aer.ad 1 Puff INH Q4HRS PRN Proair Hfa Inhaler (Albuterol Sulfate) 8.5 Gm Hfa.aer.ad 1 Puff INH PRN Q6HRS PRN Allergies Allergies: Coded Allergies: chlorpheniramine (Verified Allergy, Severe, STOPPED BREATHING, 08/15/16) pseudoephedrine (Verified Allergy, Severe, STOPPED BREATHING, 12/12/16) duoneb ok ROS General: YES: Fatigue, No: Chills, Night Sweats, Malaise, Appetite, Other PSYCHOLOGICAL ROS: No: Anxiety, Behavioral Disorder, Concentration difficultie , Decreased libido, Depression, Disorientation, Hallucinations, Hostility, Irritablity, Memory difficulties, Mood Swings, Obsessive thoughts, Physical abuse, Sexual abuse, Sleep disturbances, Suicidal ideation, Other Eyes: No Blurry vision, No Decreased vision, No Double vision, No Dry eyes, No Excessive tearing, No Eye Pain, No Itchy Eyes, No Loss of vision, No Photophobia , No Scotomata, No Uses contacts, No Uses glasses, No Other HEENT: No: Heacaches, Visual Changes, Hearing change, Nasal congestion, Nasal discharge, Oral lesions, Sinus pain, Sore Throat, Epistaxis, Sneezing, Snoring, Tinnitus, Vertigo, Vocal changes, Other Hematological and Lymphatic: YES: Brusing Respiratory: YES: Cough, Shortness of breath, SOB with excertion, Tachypnea, No: Hemoptysis, Orthopnea, Pleuritic Pain, Sputum Changes, Stridor, Wheezing , Other Cardiovascular: yes Chest Pain, No Palpitations, No Orthopnea, No Paroxysmal Noc. Dyspnea, No Edema, No Lt Headedness, No Other Gastrointestinal: No Nausea, No Vomiting, No Abdominal Pain, No Diarrhea, No Constipation, No Melena, No Hematochezia, No Other Genitourinary: No Dysuria, No Frequency, No Incontinence, No Hematuria, No Retention, No Discharge, No Urgency, No Pain, No Flank Pain, No Other, No , No , No , No , No , No , No Musculoskeletal: No Gait Disturbance, No Joint Pain, No Joint Stiffness, No Joint Swelling, No Muscle Pain, No Muscular Weakness, No Pain In:, No Swelling In:, No Other Neurological: No Behavorial Changes, No Bowel/Bladder ControlChng, No Confusion , No Dizziness, No Gait Disturbance, No Headaches, No Impaired Coord/balance, No Memory Loss, No Numbness/Tingling, No Seizures, No Speech Problems, No Tremors, No Visual Changes, No Weakness, No Other Skin: Yes Dry Skin, Yes Other, No Eczema, No Hair Changes, No Lumps, No Mole Changes, No Mottling, No Nail Changes, No Pruritus, No Rash, No Skin Lesion Changes, No Acne Physical Exam General: Alert, Oriented X3, Cooperative, mild distress HEENT: Atraumatic, PERRLA Lungs: Other (limited volume, crackles and wheeze, ) Heart: S1S2, no gallops, no murmurs Abdomen: Normal bowel sounds, Soft Extremities: No clubbing, No edema Skin: No rashes Neuro: Normal speech, Normal tone, Sensation intact, Cranial nerves 3-12 NL, Reflexes 2+ Psych/Mental Status: Mental status NL, Mood NL Vitals Vitals Vital Signs Date Time Temp Pulse Resp B/P (MAP) Pulse Ox O2 Delivery O2 Flow Rate FiO2 01/31/17 14:50 94 Room Air 01/31/17 14:17 98.1 91 16 163/96 (118) 98.1 Labs Labs Laboratory Tests Test 01/31/17 14:22 01/31/17 14:33 White Blood Count 18.6 x10^3/uL (4.0-11.0) Red Blood Count 5.79 x10^6/uL (4.30-5.70) Hemoglobin 17.1 g/dL (13.0-17.5) Hematocrit 51.3 % (39.0-53.0) Mean Corpuscular Volume 89 fL (79-100) Mean Corpuscular Hemoglobin 30 pg (25-35) Mean Corpuscular Hemoglobin Concent 33 g/dL (31-37) Red Cell Distribution Width 15.8 % (11.5-14.5) Platelet Count 344 x10^3/uL (140-400) Neutrophils (%) (Auto) 77 % (31-73) Lymphocytes (%) (Auto) 15 % (24-48) Monocytes (%) (Auto) 7 % (0-9) Eosinophils (%) (Auto) 0 % (0-3) Basophils (%) (Auto) 1 % (0-3) Neutrophils # (Auto) 14.4 x10^3uL (1.8-7.7) Lymphocytes # (Auto) 2.8 x10^3/uL (1.0-4.8) Monocytes # (Auto) 1.3 x10^3/uL (0.0-1.1) Eosinophils # (Auto) 0.0 x10^3/uL (0.0-0.7) Basophils # (Auto) 0.2 x10^3/uL (0.0-0.2) Sodium Level 141 mmol/L (136-145) Potassium Level 4.5 mmol/L (3.5-5.1) Chloride Level 102 mmol/L (98-107) Carbon Dioxide Level 30 mmol/L (21-32) Anion Gap 9 (6-14) Blood Urea Nitrogen 29 mg/dL (8-26) Creatinine 0.9 mg/dL (0.7-1.3) Estimated GFR (Cockcroft-Gault) 83.9 Glucose Level 73 mg/dL (70-99) Calcium Level 9.3 mg/dL (8.5-10.1) Magnesium Level 2.2 mg/dL (1.8-2.4) Total Bilirubin 0.3 mg/dL (0.2-1.0) Direct Bilirubin 0.1 mg/dL (0.0-0.2) Aspartate Amino Transf (AST/SGOT) 22 U/L (15-37) Alanine Aminotransferase (ALT/SGPT) 22 U/L (16-63) Alkaline Phosphatase 64 U/L (46-116) Troponin I Quantitative < 0.017 ng/mL (0.000-0.055) Total Protein 6.9 g/dL (6.4-8.2) Albumin 3.5 g/dL (3.4-5.0) Lipase 140 U/L (73-393) O2 Saturation 94 % (92-99) Arterial Blood pH 7.39 (7.35-7.45) Arterial Blood pCO2 at Patient Temp 49 mmHg (35-46) Arterial Blood pO2 at Patient Temp 67 mmHg (65-108) Arterial Blood HCO3 29 mmol/L (21-28) Arterial Blood Base Excess 3 mmol/L (-3-3) FiO2 21 Laboratory Tests Test 01/31/17 14:22 01/31/17 14:33 White Blood Count 18.6 x10^3/uL (4.0-11.0) Red Blood Count 5.79 x10^6/uL (4.30-5.70) Hemoglobin 17.1 g/dL (13.0-17.5) Hematocrit 51.3 % (39.0-53.0) Mean Corpuscular Volume 89 fL (79-100) Mean Corpuscular Hemoglobin 30 pg (25-35) Mean Corpuscular Hemoglobin Concent 33 g/dL (31-37) Red Cell Distribution Width 15.8 % (11.5-14.5) Platelet Count 344 x10^3/uL (140-400) Neutrophils (%) (Auto) 77 % (31-73) Lymphocytes (%) (Auto) 15 % (24-48) Monocytes (%) (Auto) 7 % (0-9) Eosinophils (%) (Auto) 0 % (0-3) Basophils (%) (Auto) 1 % (0-3) Neutrophils # (Auto) 14.4 x10^3uL (1.8-7.7) Lymphocytes # (Auto) 2.8 x10^3/uL (1.0-4.8) Monocytes # (Auto) 1.3 x10^3/uL (0.0-1.1) Eosinophils # (Auto) 0.0 x10^3/uL (0.0-0.7) Basophils # (Auto) 0.2 x10^3/uL (0.0-0.2) Sodium Level 141 mmol/L (136-145) Potassium Level 4.5 mmol/L (3.5-5.1) Chloride Level 102 mmol/L (98-107) Carbon Dioxide Level 30 mmol/L (21-32) Anion Gap 9 (6-14) Blood Urea Nitrogen 29 mg/dL (8-26) Creatinine 0.9 mg/dL (0.7-1.3) Estimated GFR (Cockcroft-Gault) 83.9 Glucose Level 73 mg/dL (70-99) Calcium Level 9.3 mg/dL (8.5-10.1) Magnesium Level 2.2 mg/dL (1.8-2.4) Total Bilirubin 0.3 mg/dL (0.2-1.0) Direct Bilirubin 0.1 mg/dL (0.0-0.2) Aspartate Amino Transf (AST/SGOT) 22 U/L (15-37) Alanine Aminotransferase (ALT/SGPT) 22 U/L (16-63) Alkaline Phosphatase 64 U/L (46-116) Troponin I Quantitative < 0.017 ng/mL (0.000-0.055) Total Protein 6.9 g/dL (6.4-8.2) Albumin 3.5 g/dL (3.4-5.0) Lipase 140 U/L (73-393) O2 Saturation 94 % (92-99) Arterial Blood pH 7.39 (7.35-7.45) Arterial Blood pCO2 at Patient Temp 49 mmHg (35-46) Arterial Blood pO2 at Patient Temp 67 mmHg (65-108) Arterial Blood HCO3 29 mmol/L (21-28) Arterial Blood Base Excess 3 mmol/L (-3-3) FiO2 21 VTE Prophylaxis Ordered VTE Prophylaxis Devices: No VTE Pharmacological Prophylaxi: Yes Assessment/Plan Assessment/Plan acute dyspnea with cough COPD with acute bronchitis, abx started in the ER ,will continue nebs, steroids, support leukocytosis, tachycardia, + SIRS, sepsis chest pain, prior cardiac w.u at [facility], will check echo and troponin no cardiac specific meds, tobaccoism, cessation discussed, patch BECKIE PAT MD Jan 31, 2017 15:31
[2017-01-31 16:00] VITALS: BP 136/77
[2017-01-31 16:01] LABS: OBC FLU VALID
--- NOTE | 2017-01-31 17:37 | PDOC ---
PULMONARY PROGRESS NOTES Vitals Vital Signs Date Time Temp Pulse Resp B/P (MAP) Pulse Ox O2 Delivery O2 Flow Rate FiO2 01/31/17 15:56 90 168/76 (106) Room Air 01/31/17 15:19 24 94 01/31/17 14:17 98.1 98.1 Lungs: Clear Cardiovascular: S1, S2 Abdomen: Soft, Non-tender Extremities: No Edema Labs Laboratory Tests Test 01/31/17 14:22 01/31/17 14:33 01/31/17 15:25 White Blood Count 18.6 x10^3/uL (4.0-11.0) Red Blood Count 5.79 x10^6/uL (4.30-5.70) Hemoglobin 17.1 g/dL (13.0-17.5) Hematocrit 51.3 % (39.0-53.0) Mean Corpuscular Volume 89 fL (79-100) Mean Corpuscular Hemoglobin 30 pg (25-35) Mean Corpuscular Hemoglobin Concent 33 g/dL (31-37) Red Cell Distribution Width 15.8 % (11.5-14.5) Platelet Count 344 x10^3/uL (140-400) Neutrophils (%) (Auto) 77 % (31-73) Lymphocytes (%) (Auto) 15 % (24-48) Monocytes (%) (Auto) 7 % (0-9) Eosinophils (%) (Auto) 0 % (0-3) Basophils (%) (Auto) 1 % (0-3) Neutrophils # (Auto) 14.4 x10^3uL (1.8-7.7) Lymphocytes # (Auto) 2.8 x10^3/uL (1.0-4.8) Monocytes # (Auto) 1.3 x10^3/uL (0.0-1.1) Eosinophils # (Auto) 0.0 x10^3/uL (0.0-0.7) Basophils # (Auto) 0.2 x10^3/uL (0.0-0.2) Segmented Neutrophils % 79 % (35-66) Band Neutrophils % 3 % (0-9) Lymphocytes % 14 % (24-48) Monocytes % 3 % (0-10) Eosinophils % 1 % (0-5) Toxic Granulation Slight Platelet Estimate Adequate (ADEQUATE) Sodium Level 141 mmol/L (136-145) Potassium Level 4.5 mmol/L (3.5-5.1) Chloride Level 102 mmol/L (98-107) Carbon Dioxide Level 30 mmol/L (21-32) Anion Gap 9 (6-14) Blood Urea Nitrogen 29 mg/dL (8-26) Creatinine 0.9 mg/dL (0.7-1.3) Estimated GFR (Cockcroft-Gault) 83.9 Glucose Level 73 mg/dL (70-99) Lactic Acid Level 1.4 mmol/L (0.4-2.0) Calcium Level 9.3 mg/dL (8.5-10.1) Magnesium Level 2.2 mg/dL (1.8-2.4) Total Bilirubin 0.3 mg/dL (0.2-1.0) Direct Bilirubin 0.1 mg/dL (0.0-0.2) Aspartate Amino Transf (AST/SGOT) 22 U/L (15-37) Alanine Aminotransferase (ALT/SGPT) 22 U/L (16-63) Alkaline Phosphatase 64 U/L (46-116) Creatine Kinase 76 U/L (39-308) Creatine Kinase MB (Mass) 1.0 ng/mL (0.0-3.6) Creatine Kinase MB Relative Index 1.3 % (0-4) Troponin I Quantitative < 0.017 ng/mL (0.000-0.055) GI-Zfg-M-Type Natriuretic Peptide 53 pg/mL (0-124) Total Protein 6.9 g/dL (6.4-8.2) Albumin 3.5 g/dL (3.4-5.0) Lipase 140 U/L (73-393) Thyroid Stimulating Hormone (TSH) 0.676 uIU/mL (0.358-3.74) O2 Saturation 94 % (92-99) Arterial Blood pH 7.39 (7.35-7.45) Arterial Blood pCO2 at Patient Temp 49 mmHg (35-46) Arterial Blood pO2 at Patient Temp 67 mmHg (65-108) Arterial Blood HCO3 29 mmol/L (21-28) Arterial Blood Base Excess 3 mmol/L (-3-3) FiO2 21 Influenza Type A Antigen Negative (NEGATIVE) Influenza Type B Antigen Negative (NEGATIVE) Laboratory Tests Test 01/31/17 14:22 01/31/17 14:33 01/31/17 15:25 White Blood Count 18.6 x10^3/uL (4.0-11.0) Red Blood Count 5.79 x10^6/uL (4.30-5.70) Hemoglobin 17.1 g/dL (13.0-17.5) Hematocrit 51.3 % (39.0-53.0) Mean Corpuscular Volume 89 fL (79-100) Mean Corpuscular Hemoglobin 30 pg (25-35) Mean Corpuscular Hemoglobin Concent 33 g/dL (31-37) Red Cell Distribution Width 15.8 % (11.5-14.5) Platelet Count 344 x10^3/uL (140-400) Neutrophils (%) (Auto) 77 % (31-73) Lymphocytes (%) (Auto) 15 % (24-48) Monocytes (%) (Auto) 7 % (0-9) Eosinophils (%) (Auto) 0 % (0-3) Basophils (%) (Auto) 1 % (0-3) Neutrophils # (Auto) 14.4 x10^3uL (1.8-7.7) Lymphocytes # (Auto) 2.8 x10^3/uL (1.0-4.8) Monocytes # (Auto) 1.3 x10^3/uL (0.0-1.1) Eosinophils # (Auto) 0.0 x10^3/uL (0.0-0.7) Basophils # (Auto) 0.2 x10^3/uL (0.0-0.2) Segmented Neutrophils % 79 % (35-66) Band Neutrophils % 3 % (0-9) Lymphocytes % 14 % (24-48) Monocytes % 3 % (0-10) Eosinophils % 1 % (0-5) Toxic Granulation Slight Platelet Estimate Adequate (ADEQUATE) Sodium Level 141 mmol/L (136-145) Potassium Level 4.5 mmol/L (3.5-5.1) Chloride Level 102 mmol/L (98-107) Carbon Dioxide Level 30 mmol/L (21-32) Anion Gap 9 (6-14) Blood Urea Nitrogen 29 mg/dL (8-26) Creatinine 0.9 mg/dL (0.7-1.3) Estimated GFR (Cockcroft-Gault) 83.9 Glucose Level 73 mg/dL (70-99) Lactic Acid Level 1.4 mmol/L (0.4-2.0) Calcium Level 9.3 mg/dL (8.5-10.1) Magnesium Level 2.2 mg/dL (1.8-2.4) Total Bilirubin 0.3 mg/dL (0.2-1.0) Direct Bilirubin 0.1 mg/dL (0.0-0.2) Aspartate Amino Transf (AST/SGOT) 22 U/L (15-37) Alanine Aminotransferase (ALT/SGPT) 22 U/L (16-63) Alkaline Phosphatase 64 U/L (46-116) Creatine Kinase 76 U/L (39-308) Creatine Kinase MB (Mass) 1.0 ng/mL (0.0-3.6) Creatine Kinase MB Relative Index 1.3 % (0-4) Troponin I Quantitative < 0.017 ng/mL (0.000-0.055) AI-Myz-I-Type Natriuretic Peptide 53 pg/mL (0-124) Total Protein 6.9 g/dL (6.4-8.2) Albumin 3.5 g/dL (3.4-5.0) Lipase 140 U/L (73-393) Thyroid Stimulating Hormone (TSH) 0.676 uIU/mL (0.358-3.74) O2 Saturation 94 % (92-99) Arterial Blood pH 7.39 (7.35-7.45) Arterial Blood pCO2 at Patient Temp 49 mmHg (35-46) Arterial Blood pO2 at Patient Temp 67 mmHg (65-108) Arterial Blood HCO3 29 mmol/L (21-28) Arterial Blood Base Excess 3 mmol/L (-3-3) FiO2 21 Influenza Type A Antigen Negative (NEGATIVE) Influenza Type B Antigen Negative (NEGATIVE) Medications Active Scripts Medications Dose Route/Sig Max Daily Dose Days Date Category Dose Instructions Doxycycline Hyclate 100 Mg Capsule 1 Cap PO BID 12/13/16 Rx Prednisone 10 Mg Tablet 10 Mg PO UD 12/13/16 Rx Take 3 tablets by mouth twice a day for 3 days, then take 2 tablets by mouth twice a day for 3 days, then take 1 tablet by mouth twice a day for 3 days, then take 1 tablet by mouth daily x 3 days, then stop. Ipratropium [place] 0.2 Mg/1 Ml Solution 1 Vial NEB QID 12/13/16 Rx Proair Hfa Inhaler (Albuterol Sulfate) 8.5 Gm Hfa.aer.ad 1 Puff INH PRN Q4HRS PRN 12/13/16 Rx Symbicort 160-4.5 Mcg Inhaler (Budesonide/Formoterol Fumarate) 10.2 Gm Hfa.aer.ad 2 Puff IH BID 12/13/16 Rx Lisinopril 20 Mg Tablet 1 Tab PO DAILY 12/13/16 Rx Proair Hfa Inhaler (Albuterol Sulfate) 8.5 Gm Hfa.aer.ad 1 Puff INH Q4HRS PRN 10/15/16 Rx Proair Hfa Inhaler (Albuterol Sulfate) 8.5 Gm Hfa.aer.ad 1 Puff INH PRN Q6HRS PRN 08/16/16 Rx Impression . DICTATED AECOPD TOBACCO USE AGREE WITH CURRENT RX LUIS A NOLASCO MD Jan 31, 2017 17:37
[2017-01-31] MEDS: BUDESONIDE 0.5 MG/2 ML NEBU. NEB SCH (18:03)
[2017-01-31] MEDS: IPRATRPIUM/ALBUTEROL 0.5/2.5MG 3 ML NEBU. NEB SCH (18:03)
[2017-01-31 19:00] VITALS: BP 116/65
[2017-01-31] MEDS ORDERED: BUDESONIDE 0.5 MG/2 ML NEBU. NEB SCH (20:00)
[2017-01-31] MEDS: CIPROFLOXACIN 400MG PREMIX 200 ML IV SCH (20:15)
[2017-01-31] MEDS ORDERED: NON FORMULARY ITEM (Budesonide/Formoterol Fumarate (Symbicort 160-4.5 Mcg Inhaler) 2 PUFF) IH SCH (21:00)
[2017-01-31 23:00] VITALS: BP 102/64
--- NOTE | 2017-02-01 00:01 | CONS ---
DATE OF CONSULTATION: 01/31/2017 ATTENDING PHYSICIAN: Latonia Polk M.D. REASON FOR CONSULTATION: The patient is seen in pulmonary consultation at the request of Dr. Polk for increasing shortness of air. HISTORY OF PRESENT ILLNESS: The patient is a 66-year old who continues to smoke, presented with increasing shortness of breath and chest tightness over the last 2-3 days. He normally does not require oxygen at home, presented with hypoxemia with requiring 2-1/2 liters of oxygen. He normally wears oxygen at night, a 2.5 liters. He was using it throughout a 24-hour period, presented with increasing shortness of breath. No fever or chills. He continues to smoke. No hemoptysis. X-ray was obtained in the Emergency Room, which was essentially normal. No acute infiltrates. PAST MEDICAL HISTORY: Remarkable for COPD, tobacco dependence, hypertension, hyperlipidemia, peripheral vascular disease and status post previous stent placement. PAST SURGICAL HISTORY: Previous peripheral stent placement. ALLERGIES: To PSEUDOEPHEDRINE and CHLORPHENIRAMINE. REVIEW OF SYSTEMS: As indicated above, otherwise, a 10-point system was reviewed and negative. SOCIAL HISTORY: He smokes greater than 2 packs of cigarettes per day. Denies any significant alcohol intake. FAMILY HISTORY: Remarkable for hypertension. CURRENT MEDICATIONS: List was reviewed. HOME MEDICATIONS: List was likewise reviewed. PHYSICAL EXAMINATION: GENERAL: The patient was in no significant respiratory distress and a saturation of 94%. HEENT: Eyes, the sclerae were nonicteric. NECK: Jugular venous distention was not elevated. No lymphadenopathy. CHEST: Full expansion. LUNGS: Very poor airway flow with expiratory wheeze. CARDIOVASCULAR: Regular rate and rhythm with S1 and S2. No S3. ABDOMEN: Soft, nontender and nondistended. EXTREMITIES: No clubbing, cyanosis or edema. NEUROLOGICAL: The patient was awake, alert and following commands. A detailed neuro exam was not performed. RADIOLOGICAL DATA: Chest x-ray was reviewed. Chest x-ray was likewise negative for acute infiltrates. LABORATORY DATA: White count was elevated. Arterial blood gas: pH of 7.39, PaCO2 of 49 and PaO2 of 67 on room air. Influenza screen was negative. IMPRESSION: 1. Progressive dyspnea secondary to chronic obstructive pulmonary disease exacerbation. 2. Acute exacerbation of chronic obstructive pulmonary disease. 3. Leukocytosis. 4. Systemic inflammatory response syndrome. 5. Tobacco dependence. PLAN: 1. Agree with current medical management. 2. The patient instructed on the importance of discontinuing tobacco use. 3. A 6-minute walk prior to discharge. 4. DVT prophylaxis. 5. Solu-Medrol. 6. Antibiotics. I do appreciate the privilege in sharing in the patient's care. LUIS A NOLASCO MD DR: SLOO/cuauhtemoc JOB#: [id number] / [id number]
[2017-02-01 03:00] VITALS: BP 137/95
[2017-02-01 07:00] VITALS: BP 141/73
[2017-02-01] MEDS: BUDESONIDE 0.5 MG/2 ML NEBU. NEB SCH ×2 (08:03→19:40)
[2017-02-01] MEDS: IPRATRPIUM/ALBUTEROL 0.5/2.5MG 3 ML NEBU. NEB SCH ×4 (08:03→19:40)
[2017-02-01] MEDS: CIPROFLOXACIN 400MG PREMIX 200 ML IV SCH ×2 (10:12→21:50)
[2017-02-01] MEDS: predniSONE 20 MG TABLET PO SCH (10:12)
[2017-02-01] MEDS: LISINOPRIL 20 MG TABLET PO SCH (10:13)
[2017-02-01] MEDS ORDERED: guaiFENesin DM 200MG/20MG 10 ML SYRUP PO PRN (10:30)
--- NOTE | 2017-02-01 10:51 | PDOC ---
PULMONARY PROGRESS NOTES Vitals Vital Signs Date Time Temp Pulse Resp B/P (MAP) Pulse Ox O2 Delivery O2 Flow Rate FiO2 02/01/17 10:13 84 141/73 02/01/17 08:10 95 Room Air 02/01/17 07:00 98.3 19 98.3 Lungs: Clear Cardiovascular: S1, S2 Abdomen: Soft, Non-tender Extremities: No Edema Labs Laboratory Tests Test 01/31/17 14:22 01/31/17 14:33 01/31/17 15:25 White Blood Count 18.6 x10^3/uL (4.0-11.0) Red Blood Count 5.79 x10^6/uL (4.30-5.70) Hemoglobin 17.1 g/dL (13.0-17.5) Hematocrit 51.3 % (39.0-53.0) Mean Corpuscular Volume 89 fL (79-100) Mean Corpuscular Hemoglobin 30 pg (25-35) Mean Corpuscular Hemoglobin Concent 33 g/dL (31-37) Red Cell Distribution Width 15.8 % (11.5-14.5) Platelet Count 344 x10^3/uL (140-400) Neutrophils (%) (Auto) 77 % (31-73) Lymphocytes (%) (Auto) 15 % (24-48) Monocytes (%) (Auto) 7 % (0-9) Eosinophils (%) (Auto) 0 % (0-3) Basophils (%) (Auto) 1 % (0-3) Neutrophils # (Auto) 14.4 x10^3uL (1.8-7.7) Lymphocytes # (Auto) 2.8 x10^3/uL (1.0-4.8) Monocytes # (Auto) 1.3 x10^3/uL (0.0-1.1) Eosinophils # (Auto) 0.0 x10^3/uL (0.0-0.7) Basophils # (Auto) 0.2 x10^3/uL (0.0-0.2) Segmented Neutrophils % 79 % (35-66) Band Neutrophils % 3 % (0-9) Lymphocytes % 14 % (24-48) Monocytes % 3 % (0-10) Eosinophils % 1 % (0-5) Toxic Granulation Slight Platelet Estimate Adequate (ADEQUATE) Sodium Level 141 mmol/L (136-145) Potassium Level 4.5 mmol/L (3.5-5.1) Chloride Level 102 mmol/L (98-107) Carbon Dioxide Level 30 mmol/L (21-32) Anion Gap 9 (6-14) Blood Urea Nitrogen 29 mg/dL (8-26) Creatinine 0.9 mg/dL (0.7-1.3) Estimated GFR (Cockcroft-Gault) 83.9 Glucose Level 73 mg/dL (70-99) Lactic Acid Level 1.4 mmol/L (0.4-2.0) Calcium Level 9.3 mg/dL (8.5-10.1) Magnesium Level 2.2 mg/dL (1.8-2.4) Total Bilirubin 0.3 mg/dL (0.2-1.0) Direct Bilirubin 0.1 mg/dL (0.0-0.2) Aspartate Amino Transf (AST/SGOT) 22 U/L (15-37) Alanine Aminotransferase (ALT/SGPT) 22 U/L (16-63) Alkaline Phosphatase 64 U/L (46-116) Creatine Kinase 76 U/L (39-308) Creatine Kinase MB (Mass) 1.0 ng/mL (0.0-3.6) Creatine Kinase MB Relative Index 1.3 % (0-4) Troponin I Quantitative < 0.017 ng/mL (0.000-0.055) OJ-Ajj-Z-Type Natriuretic Peptide 53 pg/mL (0-124) Total Protein 6.9 g/dL (6.4-8.2) Albumin 3.5 g/dL (3.4-5.0) Lipase 140 U/L (73-393) Thyroid Stimulating Hormone (TSH) 0.676 uIU/mL (0.358-3.74) O2 Saturation 94 % (92-99) Arterial Blood pH 7.39 (7.35-7.45) Arterial Blood pCO2 at Patient Temp 49 mmHg (35-46) Arterial Blood pO2 at Patient Temp 67 mmHg (65-108) Arterial Blood HCO3 29 mmol/L (21-28) Arterial Blood Base Excess 3 mmol/L (-3-3) FiO2 21 Influenza Type A Antigen Negative (NEGATIVE) Influenza Type B Antigen Negative (NEGATIVE) Laboratory Tests Test 01/31/17 14:22 01/31/17 14:33 01/31/17 15:25 White Blood Count 18.6 x10^3/uL (4.0-11.0) Red Blood Count 5.79 x10^6/uL (4.30-5.70) Hemoglobin 17.1 g/dL (13.0-17.5) Hematocrit 51.3 % (39.0-53.0) Mean Corpuscular Volume 89 fL (79-100) Mean Corpuscular Hemoglobin 30 pg (25-35) Mean Corpuscular Hemoglobin Concent 33 g/dL (31-37) Red Cell Distribution Width 15.8 % (11.5-14.5) Platelet Count 344 x10^3/uL (140-400) Neutrophils (%) (Auto) 77 % (31-73) Lymphocytes (%) (Auto) 15 % (24-48) Monocytes (%) (Auto) 7 % (0-9) Eosinophils (%) (Auto) 0 % (0-3) Basophils (%) (Auto) 1 % (0-3) Neutrophils # (Auto) 14.4 x10^3uL (1.8-7.7) Lymphocytes # (Auto) 2.8 x10^3/uL (1.0-4.8) Monocytes # (Auto) 1.3 x10^3/uL (0.0-1.1) Eosinophils # (Auto) 0.0 x10^3/uL (0.0-0.7) Basophils # (Auto) 0.2 x10^3/uL (0.0-0.2) Segmented Neutrophils % 79 % (35-66) Band Neutrophils % 3 % (0-9) Lymphocytes % 14 % (24-48) Monocytes % 3 % (0-10) Eosinophils % 1 % (0-5) Toxic Granulation Slight Platelet Estimate Adequate (ADEQUATE) Sodium Level 141 mmol/L (136-145) Potassium Level 4.5 mmol/L (3.5-5.1) Chloride Level 102 mmol/L (98-107) Carbon Dioxide Level 30 mmol/L (21-32) Anion Gap 9 (6-14) Blood Urea Nitrogen 29 mg/dL (8-26) Creatinine 0.9 mg/dL (0.7-1.3) Estimated GFR (Cockcroft-Gault) 83.9 Glucose Level 73 mg/dL (70-99) Lactic Acid Level 1.4 mmol/L (0.4-2.0) Calcium Level 9.3 mg/dL (8.5-10.1) Magnesium Level 2.2 mg/dL (1.8-2.4) Total Bilirubin 0.3 mg/dL (0.2-1.0) Direct Bilirubin 0.1 mg/dL (0.0-0.2) Aspartate Amino Transf (AST/SGOT) 22 U/L (15-37) Alanine Aminotransferase (ALT/SGPT) 22 U/L (16-63) Alkaline Phosphatase 64 U/L (46-116) Creatine Kinase 76 U/L (39-308) Creatine Kinase MB (Mass) 1.0 ng/mL (0.0-3.6) Creatine Kinase MB Relative Index 1.3 % (0-4) Troponin I Quantitative < 0.017 ng/mL (0.000-0.055) IE-Xba-Z-Type Natriuretic Peptide 53 pg/mL (0-124) Total Protein 6.9 g/dL (6.4-8.2) Albumin 3.5 g/dL (3.4-5.0) Lipase 140 U/L (73-393) Thyroid Stimulating Hormone (TSH) 0.676 uIU/mL (0.358-3.74) O2 Saturation 94 % (92-99) Arterial Blood pH 7.39 (7.35-7.45) Arterial Blood pCO2 at Patient Temp 49 mmHg (35-46) Arterial Blood pO2 at Patient Temp 67 mmHg (65-108) Arterial Blood HCO3 29 mmol/L (21-28) Arterial Blood Base Excess 3 mmol/L (-3-3) FiO2 21 Influenza Type A Antigen Negative (NEGATIVE) Influenza Type B Antigen Negative (NEGATIVE) Medications Active Scripts Medications Dose Route/Sig Max Daily Dose Days Date Category Dose Instructions Doxycycline Hyclate 100 Mg Capsule 1 Cap PO BID 12/13/16 Rx Prednisone 10 Mg Tablet 10 Mg PO UD 12/13/16 Rx Take 3 tablets by mouth twice a day for 3 days, then take 2 tablets by mouth twice a day for 3 days, then take 1 tablet by mouth twice a day for 3 days, then take 1 tablet by mouth daily x 3 days, then stop. Ipratropium [place] 0.2 Mg/1 Ml Solution 1 Vial NEB QID 12/13/16 Rx Proair Hfa Inhaler (Albuterol Sulfate) 8.5 Gm Hfa.aer.ad 1 Puff INH PRN Q4HRS PRN 12/13/16 Rx Symbicort 160-4.5 Mcg Inhaler (Budesonide/Formoterol Fumarate) 10.2 Gm Hfa.aer.ad 2 Puff IH BID 12/13/16 Rx Lisinopril 20 Mg Tablet 1 Tab PO DAILY 12/13/16 Rx Proair Hfa Inhaler (Albuterol Sulfate) 8.5 Gm Hfa.aer.ad 1 Puff INH Q4HRS PRN 10/15/16 Rx Proair Hfa Inhaler (Albuterol Sulfate) 8.5 Gm Hfa.aer.ad 1 Puff INH PRN Q6HRS PRN 08/16/16 Rx Impression . 1. Progressive dyspnea secondary to chronic obstructive pulmonary disease exacerbation. 2. Acute exacerbation of chronic obstructive pulmonary disease. 3. Leukocytosis. 4. Systemic inflammatory response syndrome. 5. Tobacco dependence. Plan . 1. Agree with current medical management. 2. The patient instructed on the importance of discontinuing tobacco use. 3. A 6-minute walk prior to discharge. 4. DVT prophylaxis. 5. Solu-Medrol. 6. Antibiotics. LUIS A NOLASCO MD Feb 01, 2017 10:51
[2017-02-01 11:00] VITALS: BP 127/70
[2017-02-01] MEDS ORDERED: BENZ100C PO (11:33)
[2017-02-01] MEDS ORDERED: BUDE90AE IH (11:33)
[2017-02-01] MEDS ORDERED: CIPR500T94 PO (11:33)
--- NOTE | 2017-02-01 11:37 | PDOC3 ---
Discharge Summary Visit Information Date of Admission: Jan 31, 2017 Date of Discharge: Feb 01, 2017 Admitting Diagnosis Comment: 1. Progressive dyspnea secondary to chronic obstructive pulmonary disease exacerbation. 2. Acute exacerbation of chronic obstructive pulmonary disease. 3. Leukocytosis. 4. Systemic inflammatory response syndrome. 5. Tobacco dependence. Final Diagnosis Problems Medical Problems: (1) COPD exacerbation Status: Acute Brief Hospital Course Allergies Allergies Coded Allergies Type Severity Reaction Last Updated Verified chlorpheniramine Allergy Severe STOPPED BREATHING 08/15/16 Yes pseudoephedrine Allergy Severe STOPPED BREATHING 12/12/16 Yes Vital Signs Vital Signs Date Time Temp Pulse Resp B/P (MAP) Pulse Ox O2 Delivery O2 Flow Rate FiO2 02/01/17 10:13 84 141/73 02/01/17 08:10 95 Room Air 02/01/17 07:00 98.3 19 98.3 Lab Results Laboratory Tests Test 01/31/17 14:22 01/31/17 14:33 01/31/17 15:25 White Blood Count 18.6 x10^3/uL (4.0-11.0) Red Blood Count 5.79 x10^6/uL (4.30-5.70) Hemoglobin 17.1 g/dL (13.0-17.5) Hematocrit 51.3 % (39.0-53.0) Mean Corpuscular Volume 89 fL (79-100) Mean Corpuscular Hemoglobin 30 pg (25-35) Mean Corpuscular Hemoglobin Concent 33 g/dL (31-37) Red Cell Distribution Width 15.8 % (11.5-14.5) Platelet Count 344 x10^3/uL (140-400) Neutrophils (%) (Auto) 77 % (31-73) Lymphocytes (%) (Auto) 15 % (24-48) Monocytes (%) (Auto) 7 % (0-9) Eosinophils (%) (Auto) 0 % (0-3) Basophils (%) (Auto) 1 % (0-3) Neutrophils # (Auto) 14.4 x10^3uL (1.8-7.7) Lymphocytes # (Auto) 2.8 x10^3/uL (1.0-4.8) Monocytes # (Auto) 1.3 x10^3/uL (0.0-1.1) Eosinophils # (Auto) 0.0 x10^3/uL (0.0-0.7) Basophils # (Auto) 0.2 x10^3/uL (0.0-0.2) Segmented Neutrophils % 79 % (35-66) Band Neutrophils % 3 % (0-9) Lymphocytes % 14 % (24-48) Monocytes % 3 % (0-10) Eosinophils % 1 % (0-5) Toxic Granulation Slight Platelet Estimate Adequate (ADEQUATE) Sodium Level 141 mmol/L (136-145) Potassium Level 4.5 mmol/L (3.5-5.1) Chloride Level 102 mmol/L (98-107) Carbon Dioxide Level 30 mmol/L (21-32) Anion Gap 9 (6-14) Blood Urea Nitrogen 29 mg/dL (8-26) Creatinine 0.9 mg/dL (0.7-1.3) Estimated GFR (Cockcroft-Gault) 83.9 Glucose Level 73 mg/dL (70-99) Lactic Acid Level 1.4 mmol/L (0.4-2.0) Calcium Level 9.3 mg/dL (8.5-10.1) Magnesium Level 2.2 mg/dL (1.8-2.4) Total Bilirubin 0.3 mg/dL (0.2-1.0) Direct Bilirubin 0.1 mg/dL (0.0-0.2) Aspartate Amino Transf (AST/SGOT) 22 U/L (15-37) Alanine Aminotransferase (ALT/SGPT) 22 U/L (16-63) Alkaline Phosphatase 64 U/L (46-116) Creatine Kinase 76 U/L (39-308) Creatine Kinase MB (Mass) 1.0 ng/mL (0.0-3.6) Creatine Kinase MB Relative Index 1.3 % (0-4) Troponin I Quantitative < 0.017 ng/mL (0.000-0.055) JZ-Tae-G-Type Natriuretic Peptide 53 pg/mL (0-124) Total Protein 6.9 g/dL (6.4-8.2) Albumin 3.5 g/dL (3.4-5.0) Lipase 140 U/L (73-393) Thyroid Stimulating Hormone (TSH) 0.676 uIU/mL (0.358-3.74) O2 Saturation 94 % (92-99) Arterial Blood pH 7.39 (7.35-7.45) Arterial Blood pCO2 at Patient Temp 49 mmHg (35-46) Arterial Blood pO2 at Patient Temp 67 mmHg (65-108) Arterial Blood HCO3 29 mmol/L (21-28) Arterial Blood Base Excess 3 mmol/L (-3-3) FiO2 21 Influenza Type A Antigen Negative (NEGATIVE) Influenza Type B Antigen Negative (NEGATIVE) Laboratory Tests Test 01/31/17 14:22 01/31/17 14:33 01/31/17 15:25 White Blood Count 18.6 x10^3/uL (4.0-11.0) Red Blood Count 5.79 x10^6/uL (4.30-5.70) Hemoglobin 17.1 g/dL (13.0-17.5) Hematocrit 51.3 % (39.0-53.0) Mean Corpuscular Volume 89 fL (79-100) Mean Corpuscular Hemoglobin 30 pg (25-35) Mean Corpuscular Hemoglobin Concent 33 g/dL (31-37) Red Cell Distribution Width 15.8 % (11.5-14.5) Platelet Count 344 x10^3/uL (140-400) Neutrophils (%) (Auto) 77 % (31-73) Lymphocytes (%) (Auto) 15 % (24-48) Monocytes (%) (Auto) 7 % (0-9) Eosinophils (%) (Auto) 0 % (0-3) Basophils (%) (Auto) 1 % (0-3) Neutrophils # (Auto) 14.4 x10^3uL (1.8-7.7) Lymphocytes # (Auto) 2.8 x10^3/uL (1.0-4.8) Monocytes # (Auto) 1.3 x10^3/uL (0.0-1.1) Eosinophils # (Auto) 0.0 x10^3/uL (0.0-0.7) Basophils # (Auto) 0.2 x10^3/uL (0.0-0.2) Segmented Neutrophils % 79 % (35-66) Band Neutrophils % 3 % (0-9) Lymphocytes % 14 % (24-48) Monocytes % 3 % (0-10) Eosinophils % 1 % (0-5) Toxic Granulation Slight Platelet Estimate Adequate (ADEQUATE) Sodium Level 141 mmol/L (136-145) Potassium Level 4.5 mmol/L (3.5-5.1) Chloride Level 102 mmol/L (98-107) Carbon Dioxide Level 30 mmol/L (21-32) Anion Gap 9 (6-14) Blood Urea Nitrogen 29 mg/dL (8-26) Creatinine 0.9 mg/dL (0.7-1.3) Estimated GFR (Cockcroft-Gault) 83.9 Glucose Level 73 mg/dL (70-99) Lactic Acid Level 1.4 mmol/L (0.4-2.0) Calcium Level 9.3 mg/dL (8.5-10.1) Magnesium Level 2.2 mg/dL (1.8-2.4) Total Bilirubin 0.3 mg/dL (0.2-1.0) Direct Bilirubin 0.1 mg/dL (0.0-0.2) Aspartate Amino Transf (AST/SGOT) 22 U/L (15-37) Alanine Aminotransferase (ALT/SGPT) 22 U/L (16-63) Alkaline Phosphatase 64 U/L (46-116) Creatine Kinase 76 U/L (39-308) Creatine Kinase MB (Mass) 1.0 ng/mL (0.0-3.6) Creatine Kinase MB Relative Index 1.3 % (0-4) Troponin I Quantitative < 0.017 ng/mL (0.000-0.055) AM-Abh-S-Type Natriuretic Peptide 53 pg/mL (0-124) Total Protein 6.9 g/dL (6.4-8.2) Albumin 3.5 g/dL (3.4-5.0) Lipase 140 U/L (73-393) Thyroid Stimulating Hormone (TSH) 0.676 uIU/mL (0.358-3.74) O2 Saturation 94 % (92-99) Arterial Blood pH 7.39 (7.35-7.45) Arterial Blood pCO2 at Patient Temp 49 mmHg (35-46) Arterial Blood pO2 at Patient Temp 67 mmHg (65-108) Arterial Blood HCO3 29 mmol/L (21-28) Arterial Blood Base Excess 3 mmol/L (-3-3) FiO2 21 Influenza Type A Antigen Negative (NEGATIVE) Influenza Type B Antigen Negative (NEGATIVE) Brief Hospital Course Mr. Martínez is a 66 old male who continues to smoke. Admitted overnight for COPD exacerbation, acute bronchitis, chest x-ray was normal. WBC 18.6 on discharge. He was getting IV Solu-Medrol. PCO2 was 49 oxygenation was good. He is on 2 L nasal cannula at home oxygen. He already has nebulizers and nebules medications at home. From pulmonary to be discharged. I did write prescription for echocardiogram to check for LV systolic function. I also did write prescription for Cipro 500 by mouth twice a day which was getting here along with prednisone taper. Patient seen and examined Discharged to persistent disposition to home. Discharge instructions attached. Discharge time 32 minutes with 50% counseling discussed with RN. Consults: pulmonary procedures performed none Discharge Information Condition at Discharge: Improved, Stable Follow Up: Weeks (pcp or pulmo) Disposition/Orders: D/C to Home Scheduled Budesonide (Pulmicort Flexhaler), 90 MCG IH BID Budesonide/Formoterol Fumarate (Symbicort 160-4.5 Mcg Inhaler), 2 PUFF IH BID Doxycycline Hyclate (Doxycycline Hyclate), 1 CAP PO BID Ipratropium [place] (Ipratropium [place]), 1 VIAL NEB QID Lisinopril (Lisinopril), 1 TAB PO DAILY Prednisone (Prednisone), 10 MG PO UD Scheduled PRN Albuterol Sulfate (Proair Hfa Inhaler), 1 PUFF INH PRN Q6HRS PRN for SHORTNESS OF BREATH Albuterol Sulfate (Proair Hfa Inhaler), 1 PUFF INH Q4HRS PRN for SHORTNESS OF BREATH Albuterol Sulfate (Proair Hfa Inhaler), 1 PUFF INH PRN Q4HRS PRN for SHORTNESS OF BREATH LOVE CALVILLO MD Feb 01, 2017 11:37
[2017-02-01] MEDS ORDERED: ACETAMINOPHEN 500 MG TABLET PO PRN (11:45)
[2017-02-01] MEDS ORDERED: ALPRAZolam 0.25 MG TABLET PO PRN (16:00)
[2017-02-01] MEDS ORDERED: methylPREDNISolone SOD SUCC PF 125 MG/2 ML VIAL. IV ONE (17:00)
--- NOTE | 2017-02-01 17:41 | CARD ---
APPROVED REPORT EXAM: Two-dimensional and M-mode echocardiogram with Doppler and color Doppler. Other Information Quality : Fair INDICATION Chest Pain RISK FACTORS Smoking 2D DIMENSIONS RVDd2.4 (2.9-3.5cm)Left Atrium(2D)2.7 (1.6-4.0cm) IVSd0.9 (0.7-1.1cm)Aortic Root(2D)2.1 (2.0-3.7cm) LVDd4.3 (3.9-5.9cm)LVOT Diameter1.9 (1.8-2.4cm) PWd0.9 (0.7-1.1cm)LVDs2.3 (2.5-4.0cm) FS (%) 30.0 %SV65.0 ml LVEF(%)60.0 (>50%) Aortic Valve AoV Peak Ankit.185.2cm/sAoV VTI29.6cm AO Peak GR.13.7mmHgLVOT Peak Ankit.166.4cm/s AO Mean GR.6mmHgAVA (VMAX)2.64cm2 RAJNI (VTI)2.70cm2 Mitral Valve MV E Cmgdzbjp147.0cm/sMV DECEL [id number] MV A Nzniszmn294.8cm/sE/A Ratio0.9 Pulmonary Vein S1 Zsfrnahw15.7cm/sD2 Zanynbrc64.9cm/s LEFT VENTRICLE The left ventricle is normal size. There is normal left ventricular wall thickness. The left ventricu lar systolic function is normal and the ejection fraction is within normal range. The Ejection Fracti on is 60%. There is normal LV segmental wall motion. Transmitral Doppler flow pattern is Grade I-abno rmal relaxation pattern. RIGHT VENTRICLE The right ventricle is normal size. The right ventricular systolic function is normal. ATRIA The left atrium size is normal. The right atrium size is normal. The interatrial septum is intact wit h no evidence for an atrial septal defect or patent foramen ovale as noted on 2-D or Doppler imaging. AORTIC VALVE The aortic valve is not well visualized but appears to be functioning normally by Doppler interrogati on. Doppler and Color Flow revealed no significant aortic regurgitation. There is no significant aort ic valvular stenosis. MITRAL VALVE The mitral valve is calcified but opens well. There is no evidence of mitral valve prolapse. There is no mitral valve stenosis. Doppler and Color Flow revealed no mitral valve regurgitation noted. TRICUSPID VALVE The tricuspid valve is normal in structure and function. Doppler and Color Flow revealed no tricuspid valve regurgitation noted. Unable to asses the PA pressure There is no tricuspid valve stenosis. PULMONIC VALVE The pulmonary valve is not well visualized but appears to be functioning normally by Doppler interrog ation. Doppler and Color Flow revealed no pulmonic valvular regurgitation. There is no pulmonic valvu lar stenosis. GREAT VESSELS The aortic root is normal in size. The ascending aorta is normal in size. The IVC is normal in size a nd collapses >50% with inspiration. PERICARDIAL EFFUSION There is no evidence of significant pericardial effusion. Critical Notification Critical Value: No <Conclusion> The left ventricular systolic function is normal and the ejection fraction is within normal range. The Ejection Fraction is 60%. Transmitral Doppler flow pattern is Grade I-abnormal relaxation pattern. The left atrium size is normal. The right atrium size is normal. The aortic valve is not well visualized but appears to be functioning normally by Doppler interrogati on. The mitral valve is calcified but opens well. Doppler and Color Flow revealed no tricuspid valve regurgitation noted. Unable to asses the PA press ure The pulmonary valve is not well visualized but appears to be functioning normally by Doppler interrog ation. There is no evidence of significant pericardial effusion.
[2017-02-01 23:00] VITALS: BP 115/60
[2017-02-02 03:00] VITALS: BP 115/58
[2017-02-02 04:42] LABS: BASO # 0.1 x10^3/uL (0.0-0.2); BASO % 1 % (0-3); EOS % 0 % (0-3); HEMATOCRIT 47.1 % (39.0-53.0); HEMOGLOBIN 15.2 g/dL (13.0-17.5); LYMPH % 6 % (24-48); MEAN CORPUSCULAR HEMOGLOBIN 29 pg (25-35); MEAN CORPUSCULAR HGB CONC 32 g/dL (31-37); MEAN CORPUSCULAR VOLUME 90 fL (79-100); MONO % 4 % (0-9); NEUT % 90 % (31-73); PLATELET COUNT 288 x10^3/uL (140-400); RED BLOOD COUNT 5.24 x10^6/uL (4.30-5.70); RED CELL DISTRIBUTION WIDTH 15.8 % (11.5-14.5); WHITE BLOOD COUNT 18.3 x10^3/uL (4.0-11.0)
[2017-02-02 07:00] VITALS: BP 130/78
[2017-02-02] MEDS: BUDESONIDE 0.5 MG/2 ML NEBU. NEB SCH (07:15)
[2017-02-02] MEDS: IPRATRPIUM/ALBUTEROL 0.5/2.5MG 3 ML NEBU. NEB SCH ×2 (07:15→11:31)
[2017-02-02] MEDS: CIPROFLOXACIN 400MG PREMIX 200 ML IV SCH (08:20)
[2017-02-02] MEDS: predniSONE 20 MG TABLET PO SCH (08:21)
[2017-02-02] MEDS: LISINOPRIL 20 MG TABLET PO SCH (08:32)
[2017-02-02] MEDS ORDERED: methylPREDNISolone SOD SUCC PF 125 MG/2 ML VIAL. IV ONE (09:00)
[2017-02-02 11:00] VITALS: BP 149/79
[2017-02-02] MEDS ORDERED: ALPR0.5T PO (13:02)
--- NOTE | 2017-02-02 13:09 | PDOC ---
PULMONARY PROGRESS NOTES Subjective PT FEELS BETTER WANTS TO GO HOME Vitals Vital Signs Date Time Temp Pulse Resp B/P (MAP) Pulse Ox O2 Delivery O2 Flow Rate FiO2 02/02/17 11:00 95.5 84 20 149/79 (102) 95 Room Air 95.5 ROS: No Nausea, No Chest Pain, No Abdominal Pain, No Increase Cough Lungs: Clear Cardiovascular: S1, S2 Abdomen: Soft, Non-tender Neuro Exam: Alert Extremities: No Edema Skin: Warm Labs Laboratory Tests Test 01/31/17 14:22 01/31/17 14:33 01/31/17 15:25 02/02/17 03:40 White Blood Count 18.6 x10^3/uL (4.0-11.0) 18.3 x10^3/uL (4.0-11.0) Red Blood Count 5.79 x10^6/uL (4.30-5.70) 5.24 x10^6/uL (4.30-5.70) Hemoglobin 17.1 g/dL (13.0-17.5) 15.2 g/dL (13.0-17.5) Hematocrit 51.3 % (39.0-53.0) 47.1 % (39.0-53.0) Mean Corpuscular Volume 89 fL (79-100) 90 fL (79-100) Mean Corpuscular Hemoglobin 30 pg (25-35) 29 pg (25-35) Mean Corpuscular Hemoglobin Concent 33 g/dL (31-37) 32 g/dL (31-37) Red Cell Distribution Width 15.8 % (11.5-14.5) 15.8 % (11.5-14.5) Platelet Count 344 x10^3/uL (140-400) 288 x10^3/uL (140-400) Neutrophils (%) (Auto) 77 % (31-73) 90 % (31-73) Lymphocytes (%) (Auto) 15 % (24-48) 6 % (24-48) Monocytes (%) (Auto) 7 % (0-9) 4 % (0-9) Eosinophils (%) (Auto) 0 % (0-3) 0 % (0-3) Basophils (%) (Auto) 1 % (0-3) 1 % (0-3) Neutrophils # (Auto) 14.4 x10^3uL (1.8-7.7) 16.5 x10^3uL (1.8-7.7) Lymphocytes # (Auto) 2.8 x10^3/uL (1.0-4.8) 1.0 x10^3/uL (1.0-4.8) Monocytes # (Auto) 1.3 x10^3/uL (0.0-1.1) 0.7 x10^3/uL (0.0-1.1) Eosinophils # (Auto) 0.0 x10^3/uL (0.0-0.7) 0.0 x10^3/uL (0.0-0.7) Basophils # (Auto) 0.2 x10^3/uL (0.0-0.2) 0.1 x10^3/uL (0.0-0.2) Segmented Neutrophils % 79 % (35-66) Band Neutrophils % 3 % (0-9) Lymphocytes % 14 % (24-48) Monocytes % 3 % (0-10) Eosinophils % 1 % (0-5) Toxic Granulation Slight Platelet Estimate Adequate (ADEQUATE) Sodium Level 141 mmol/L (136-145) Potassium Level 4.5 mmol/L (3.5-5.1) Chloride Level 102 mmol/L (98-107) Carbon Dioxide Level 30 mmol/L (21-32) Anion Gap 9 (6-14) Blood Urea Nitrogen 29 mg/dL (8-26) Creatinine 0.9 mg/dL (0.7-1.3) Estimated GFR (Cockcroft-Gault) 83.9 Glucose Level 73 mg/dL (70-99) Lactic Acid Level 1.4 mmol/L (0.4-2.0) Calcium Level 9.3 mg/dL (8.5-10.1) Magnesium Level 2.2 mg/dL (1.8-2.4) Total Bilirubin 0.3 mg/dL (0.2-1.0) Direct Bilirubin 0.1 mg/dL (0.0-0.2) Aspartate Amino Transf (AST/SGOT) 22 U/L (15-37) Alanine Aminotransferase (ALT/SGPT) 22 U/L (16-63) Alkaline Phosphatase 64 U/L (46-116) Creatine Kinase 76 U/L (39-308) Creatine Kinase MB (Mass) 1.0 ng/mL (0.0-3.6) Creatine Kinase MB Relative Index 1.3 % (0-4) Troponin I Quantitative < 0.017 ng/mL (0.000-0.055) RH-Idw-Y-Type Natriuretic Peptide 53 pg/mL (0-124) Total Protein 6.9 g/dL (6.4-8.2) Albumin 3.5 g/dL (3.4-5.0) Lipase 140 U/L (73-393) Thyroid Stimulating Hormone (TSH) 0.676 uIU/mL (0.358-3.74) O2 Saturation 94 % (92-99) Arterial Blood pH 7.39 (7.35-7.45) Arterial Blood pCO2 at Patient Temp 49 mmHg (35-46) Arterial Blood pO2 at Patient Temp 67 mmHg (65-108) Arterial Blood HCO3 29 mmol/L (21-28) Arterial Blood Base Excess 3 mmol/L (-3-3) FiO2 21 Influenza Type A Antigen Negative (NEGATIVE) Influenza Type B Antigen Negative (NEGATIVE) Laboratory Tests Test 02/02/17 03:40 White Blood Count 18.3 x10^3/uL (4.0-11.0) Red Blood Count 5.24 x10^6/uL (4.30-5.70) Hemoglobin 15.2 g/dL (13.0-17.5) Hematocrit 47.1 % (39.0-53.0) Mean Corpuscular Volume 90 fL (79-100) Mean Corpuscular Hemoglobin 29 pg (25-35) Mean Corpuscular Hemoglobin Concent 32 g/dL (31-37) Red Cell Distribution Width 15.8 % (11.5-14.5) Platelet Count 288 x10^3/uL (140-400) Neutrophils (%) (Auto) 90 % (31-73) Lymphocytes (%) (Auto) 6 % (24-48) Monocytes (%) (Auto) 4 % (0-9) Eosinophils (%) (Auto) 0 % (0-3) Basophils (%) (Auto) 1 % (0-3) Neutrophils # (Auto) 16.5 x10^3uL (1.8-7.7) Lymphocytes # (Auto) 1.0 x10^3/uL (1.0-4.8) Monocytes # (Auto) 0.7 x10^3/uL (0.0-1.1) Eosinophils # (Auto) 0.0 x10^3/uL (0.0-0.7) Basophils # (Auto) 0.1 x10^3/uL (0.0-0.2) Medications Active Scripts Medications Dose Route/Sig Max Daily Dose Days Date Category Dose Instructions Doxycycline Hyclate 100 Mg Capsule 1 Cap PO BID 12/13/16 Rx Prednisone 10 Mg Tablet 10 Mg PO UD 12/13/16 Rx Take 3 tablets by mouth twice a day for 3 days, then take 2 tablets by mouth twice a day for 3 days, then take 1 tablet by mouth twice a day for 3 days, then take 1 tablet by mouth daily x 3 days, then stop. Ipratropium [place] 0.2 Mg/1 Ml Solution 1 Vial NEB QID 12/13/16 Rx Proair Hfa Inhaler (Albuterol Sulfate) 8.5 Gm Hfa.aer.ad 1 Puff INH PRN Q4HRS PRN 12/13/16 Rx Symbicort 160-4.5 Mcg Inhaler (Budesonide/Formoterol Fumarate) 10.2 Gm Hfa.aer.ad 2 Puff IH BID 12/13/16 Rx Lisinopril 20 Mg Tablet 1 Tab PO DAILY 12/13/16 Rx Proair Hfa Inhaler (Albuterol Sulfate) 8.5 Gm Hfa.aer.ad 1 Puff INH Q4HRS PRN 10/15/16 Rx Proair Hfa Inhaler (Albuterol Sulfate) 8.5 Gm Hfa.aer.ad 1 Puff INH PRN Q6HRS PRN 08/16/16 Rx Impression . 1. Progressive dyspnea secondary to chronic obstructive pulmonary disease exacerbation. 2. Acute exacerbation of chronic obstructive pulmonary disease. 3. Leukocytosis. 4. Systemic inflammatory response syndrome. 5. Tobacco dependence. Plan . D/C HOME FOLLOW UP IN OFFICE PT TO D/C TOBACCO CONTINUE SYMBICORT OUTPT SURVELANCE CT OF CHEST OUTPT PFT LUIS A NOLASCO MD Feb 02, 2017 13:09
[2017-02-02] MEDS ORDERED: PRED-220 PO (13:11)
--- NOTE | 2017-02-02 15:10 | PDOC2 ---
CONSULT Date of Consult Date of Consult DATE: 02/02/17 TIME: 14:58 Reason for Consult Reason for Consult: Chest Tightness, HTN Referring Physician Referring Physician: Dr. Latonia Polk MD. Identification/Chief Complaint Chief Complaint COPD Exacerbation Problems: Source Source: Chart review, Patient History of Present Illness Reason for Visit: Mr. Martínez is a 66 yo male with a medical Hx significant for heart disease, PVD, HTN, and COPD. He was admitted for COPD exacerbation. Patient reports that he has had an increased cough, SOB, and chest tightness for the last 2-3 days. The patient states that he coughs every time that he takes in a big breath and also has alot of chest pain with deep inhalation. He is current on 2.5L O2 at home and smokes 1ppd. Per patient, ACS was ruled out. In the ED, the patient had a normal EKG, negative troponin levels, and a normal proBNP level. A Chest X-ray was performed and was unremarkable for signs of CHF or infiltrates. A cardiac echo revealed a normal LV systolic fx and a normal EF (60%). The echo was only remarkable for a grade 1 abnormal relaxation pattern on Doppler Flow, however the pulmonary vessels were difficult to visualize. In the ED, the patient received IV methylprednisone, a duoneb, budesinide, and Cipro with much symptomatic improvement. He continues to improve and is doing well today. Patient still has some SOB and coughing episodes, but denies any chest pain or cardiac symptoms. Past Medical History Cardiovascular: HTN, Other Pulmonary: COPD GI: No pertinent hx Psych: No pertinent hx Infectious disease: No pertinent hx ENT: No pertinent hx Renal/: No pertinent hx Endocrine: No pertinent hx Past Surgical History Past Surgical History: No pertinent history Family History Family History: Hypertension Social History 1 pack per day ALCOHOL: rare Drugs: None Current Problem List Problem List Problems Medical Problems: (1) COPD exacerbation Status: Acute Current Medications Current Medications Current Medications Sodium Chloride (Normal Saline Flush) 10 ml 1X ONCE IV Last administered on 14:59; Start 01/31/17 at 14:45; Stop 01/31/17 at 14:46; Status DC Sodium Chloride 1,000 ml @ 1,000 mls/hr Q1H IV Last administered on 01/31/17 14:56; Start 01/31/17 at 14:33; Stop 01/31/17 at 15:32; Status DC Albuterol/ Ipratropium (Duoneb) 3 ml 1X ONCE NEB Last administered on 14:44; Start 01/31/17 at 14:45; Stop 01/31/17 at 14:46; Status DC Lorazepam (Ativan) 1 mg 1X ONCE IV Last administered on 01/31/17 14:59; Start 01/31/17 at 14:45; Stop 01/31/17 at 14:46; Status DC Methylprednisolone Sodium Succinate (SOLU-Medrol 125MG VIAL) 125 mg 1X ONCE IV Last administered on 01/31/17 14:56; Start 01/31/17 at 14:45; Stop 01/31/17 at 14:46; Status DC Aspirin (Children'S Aspirin) 324 mg 1X ONCE PO Last administered on 01/31/17 14:57; Start 01/31/17 at 14:45; Stop 01/31/17 at 14:46; Status DC Ciprofloxacin/ Dextrose 200 ml @ 200 mls/hr Q12HR IV Last administered on 02/02 08:20; Start 01/31/17 at 21:00 Ciprofloxacin/ Dextrose 200 ml @ 200 mls/hr 1X ONCE IV Last administered on 01/31/17 15:02; Start 01/31/17 at 14:45; Stop 01/31/17 at 15:44; Status DC Lisinopril (Prinivil) 20 mg DAILY PO Last administered on 02/02/17 08:32; Start 02/01/17 at 09:00 Non-Formulary Medication 1 puff Q4HRS PRN INH SHORTNESS OF BREATH; Start at 15:30; Status UNV Non-Formulary Medication 2 puff BID IH ; Start 01/31/17 at 21:00; Status UNV Albuterol/ Ipratropium (Duoneb) 3 ml Q4HRS W/A NEB Last administered on 08:03; Start 01/31/17 at 18:00; Stop 02/01/17 at 10:34; Status DC Budesonide (Pulmicort) 0.5 mg RTBID NEB ; Start 01/31/17 at 20:00; Stop at 20:00; Status DC Prednisone (Prednisone) 40 mg DAILY PO Last administered on 02/02/17 08:21; Start 02/01/17 at 09:00 Nicotine (Nicoderm Cq 21mg) 1 patch PRN DAILY PRN TD SMOKING CESSATION Last administered on 02/01/17 10:14; Start 01/31/17 at 15:30 Nicotine Polacrilex (Nicorette Gum) 1 each PRN Q1HR PRN BC SMOKING CESSATION; Start 01/31/17 at 15:30 Albuterol Sulfate (Ventolin Neb Soln) 10 mg 1X ONCE CONT NEB Last administered on 01/31/17 15:29; Start 01/31/17 at 15:30; Stop 01/31/17 at 15:31 ; Status DC Budesonide (Pulmicort) 0.5 mg RTBID NEB Last administered on 02/02/17 07:15; Start 01/31/17 at 18:00 Albuterol/ Ipratropium (Duoneb) 3 ml RTQID NEB Last administered on 02/02/17 11:31; Start 02/01/17 at 12:00 Guaifenesin (Robitussin Dm) 10 ml PRN Q6HRS PRN PO COUGH Last administered on 02/01/17 12:32; Start 02/01/17 at 10:30 Acetaminophen (Tylenol) 500 mg PRN Q6HRS PRN PO MILD PAIN / TEMP Last administered on 02/01/17 12:32; Start 02/01/17 at 11:45 Alprazolam (Xanax) 0.25 mg PRN Q8HRS PRN PO ANXIETY / AGITATION; Start at 16:00 Lorazepam (Ativan) 1 mg PRN Q4HRS PRN IV ANXIETY / AGITATION Last administered on 02/01/17 17:17; Start 02/01/17 at 16:00 Methylprednisolone Sodium Succinate (SOLU-Medrol 125MG VIAL) 125 mg 1X ONCE IV Last administered on 02/01/17 17:17; Start 02/01/17 at 17:00; Stop 02/01/17 at 17:04; Status DC Methylprednisolone Sodium Succinate (SOLU-Medrol 125MG VIAL) 125 mg 1X ONCE IV Last administered on 02/02/17 08:21; Start 02/02/17 at 09:00; Stop 02/02/17 at 09:01; Status DC Active Scripts Active Cipro (Ciprofloxacin Hcl) 500 Mg Tablet 1 Tab PO BID Tessalon Perle (Benzonatate) 100 Mg Capsule 1 Cap PO TID Pulmicort Flexhaler (Budesonide) 90 Mcg Aer.pow.ba 90 Mcg IH BID 30 Days Ipratropium [place] 0.2 Mg/1 Ml Solution 1 Vial NEB QID Proair Hfa Inhaler (Albuterol Sulfate) 8.5 Gm Hfa.aer.ad 1 Puff INH PRN Q4HRS PRN Symbicort 160-4.5 Mcg Inhaler (Budesonide/Formoterol Fumarate) 10.2 Gm Hfa.aer.ad 2 Puff IH BID Lisinopril 20 Mg Tablet 1 Tab PO DAILY Proair Hfa Inhaler (Albuterol Sulfate) 8.5 Gm Hfa.aer.ad 1 Puff INH Q4HRS PRN Proair Hfa Inhaler (Albuterol Sulfate) 8.5 Gm Hfa.aer.ad 1 Puff INH PRN Q6HRS PRN Reported Prednisone 10 Mg Tablet 10 Mg PO DAILY Xanax (Alprazolam) 0.5 Mg Tablet 0.5 Mg PO PRN Q8HRS Allergies Allergies: Coded Allergies: chlorpheniramine (Verified Allergy, Severe, STOPPED BREATHING, 08/15/16) pseudoephedrine (Verified Allergy, Severe, STOPPED BREATHING, 12/12/16) duoneb ok ROS Respiratory: YES: Cough, Shortness of breath, SOB with excertion Cardiovascular: yes Chest Pain Physical Exam General: Alert, Oriented X3, Cooperative, No acute distress HEENT: PERRLA Lungs: Normal air movement Heart: Regular rate, Normal S1, Normal S2, No murmurs Extremities: No clubbing, No cyanosis, No edema Neuro: Normal speech Psych/Mental Status: Mental status NL, Mood NL Vitals VITALS Vital Signs Date Time Temp Pulse Resp B/P (MAP) Pulse Ox O2 Delivery O2 Flow Rate FiO2 02/02/17 11:00 95.5 84 20 149/79 (102) 95 Room Air 95.5 Labs Labs Laboratory Tests Test 01/31/17 15:25 02/02/17 03:40 Influenza Type A Antigen Negative (NEGATIVE) Influenza Type B Antigen Negative (NEGATIVE) White Blood Count 18.3 x10^3/uL (4.0-11.0) Red Blood Count 5.24 x10^6/uL (4.30-5.70) Hemoglobin 15.2 g/dL (13.0-17.5) Hematocrit 47.1 % (39.0-53.0) Mean Corpuscular Volume 90 fL (79-100) Mean Corpuscular Hemoglobin 29 pg (25-35) Mean Corpuscular Hemoglobin Concent 32 g/dL (31-37) Red Cell Distribution Width 15.8 % (11.5-14.5) Platelet Count 288 x10^3/uL (140-400) Neutrophils (%) (Auto) 90 % (31-73) Lymphocytes (%) (Auto) 6 % (24-48) Monocytes (%) (Auto) 4 % (0-9) Eosinophils (%) (Auto) 0 % (0-3) Basophils (%) (Auto) 1 % (0-3) Neutrophils # (Auto) 16.5 x10^3uL (1.8-7.7) Lymphocytes # (Auto) 1.0 x10^3/uL (1.0-4.8) Monocytes # (Auto) 0.7 x10^3/uL (0.0-1.1) Eosinophils # (Auto) 0.0 x10^3/uL (0.0-0.7) Basophils # (Auto) 0.1 x10^3/uL (0.0-0.2) Laboratory Tests Test 02/02/17 03:40 White Blood Count 18.3 x10^3/uL (4.0-11.0) Red Blood Count 5.24 x10^6/uL (4.30-5.70) Hemoglobin 15.2 g/dL (13.0-17.5) Hematocrit 47.1 % (39.0-53.0) Mean Corpuscular Volume 90 fL (79-100) Mean Corpuscular Hemoglobin 29 pg (25-35) Mean Corpuscular Hemoglobin Concent 32 g/dL (31-37) Red Cell Distribution Width 15.8 % (11.5-14.5) Platelet Count 288 x10^3/uL (140-400) Neutrophils (%) (Auto) 90 % (31-73) Lymphocytes (%) (Auto) 6 % (24-48) Monocytes (%) (Auto) 4 % (0-9) Eosinophils (%) (Auto) 0 % (0-3) Basophils (%) (Auto) 1 % (0-3) Neutrophils # (Auto) 16.5 x10^3uL (1.8-7.7) Lymphocytes # (Auto) 1.0 x10^3/uL (1.0-4.8) Monocytes # (Auto) 0.7 x10^3/uL (0.0-1.1) Eosinophils # (Auto) 0.0 x10^3/uL (0.0-0.7) Basophils # (Auto) 0.1 x10^3/uL (0.0-0.2) Images Images Patient is compensated well cardiac-van. ECG, troponin levels, proBNP levels, and echo fairly unremarkable. Unable to visualize pulmonary vessels well on echo. I do not believe that this is a underlying cardiac issue, but instead a pulmonary issue causing stress on the heart. I discussed in length with the patient about the importance of smoking cessation and follow-up with a cuff turner machine operator; patient is in agreement. Will continue current BP meds and Prednisone. Patient to follow-up with cuff turner machine operator on OP basis. As he is stable, I agree with the plan to d/c to home as soon as arrangements are made and primary physician has agreed with d/ c. Will f/u with patient in my office in 3 weeks. AISHA BRASWELL MD Feb 02, 2017 15:10
--- NOTE | 2017-02-02 15:18 | PDOC ---
PROGRESS NOTES Chief Complaint Chief Complaint 1. Cough and dyspnea, secondary to COPD exacerbation 2. COPD 3. Leukocytosis 4. Systemic inflammatory response syndrome. 5. Tobacco dependence. 6. HTN History of Present Illness History of Present Illness Pt seen and examined today, pt sitting in reclining chair Pt feels well and wants to be discharged Vitals Vitals Vital Signs Date Time Temp Pulse Resp B/P (MAP) Pulse Ox O2 Delivery O2 Flow Rate FiO2 02/02/17 11:00 95.5 84 20 149/79 (102) 95 Room Air 95.5 Physical Exam Physical Exam Eyes: Sclera anicteric, no conjunctival injection Neuro: WRAPPER DIPPER II-XII grossly intact b/l General: Alert, Oriented X3, Cooperative, No acute distress Heart: Normal S1, Normal S2 Lungs: Clear, Other (No wheezes or crackels ) Abdomen: Normal bowel sounds, Soft Extremities: No clubbing, No edema Skin: No rashes, No breakdown Labs LABS Laboratory Tests Test 02/02/17 03:40 White Blood Count 18.3 x10^3/uL (4.0-11.0) Red Blood Count 5.24 x10^6/uL (4.30-5.70) Hemoglobin 15.2 g/dL (13.0-17.5) Hematocrit 47.1 % (39.0-53.0) Mean Corpuscular Volume 90 fL (79-100) Mean Corpuscular Hemoglobin 29 pg (25-35) Mean Corpuscular Hemoglobin Concent 32 g/dL (31-37) Red Cell Distribution Width 15.8 % (11.5-14.5) Platelet Count 288 x10^3/uL (140-400) Neutrophils (%) (Auto) 90 % (31-73) Lymphocytes (%) (Auto) 6 % (24-48) Monocytes (%) (Auto) 4 % (0-9) Eosinophils (%) (Auto) 0 % (0-3) Basophils (%) (Auto) 1 % (0-3) Neutrophils # (Auto) 16.5 x10^3uL (1.8-7.7) Lymphocytes # (Auto) 1.0 x10^3/uL (1.0-4.8) Monocytes # (Auto) 0.7 x10^3/uL (0.0-1.1) Eosinophils # (Auto) 0.0 x10^3/uL (0.0-0.7) Basophils # (Auto) 0.1 x10^3/uL (0.0-0.2) Review of Systems Review of Systems GEN: Denies fever, chills or sweats CV: Denies chest pain Resp: Denies shortness of air GI: Denies N/V Assessment and Plan Assessmemt and Plan Problems Medical Problems: (1) COPD exacerbation Status: Acute Assessment: 1. Cough and dyspnea, secondary to COPD exacerbation 2. COPD 3. Leukocytosis 4. Systemic inflammatory response syndrome. 5. Tobacco dependence. 6. HTN Plan: Prescription for Ciprofloxacin and Xanax provided Discharge pt. home F/u with PCP in 1 week, Dr. Mustafa [facility] Care discussed with RN Continue home medications Problems: Comment Review of Relevant I have reviewed the following items rohit (where applicable) has been applied. Labs Laboratory Tests Test 01/31/17 15:25 02/02/17 03:40 Influenza Type A Antigen Negative (NEGATIVE) Influenza Type B Antigen Negative (NEGATIVE) White Blood Count 18.3 x10^3/uL (4.0-11.0) Red Blood Count 5.24 x10^6/uL (4.30-5.70) Hemoglobin 15.2 g/dL (13.0-17.5) Hematocrit 47.1 % (39.0-53.0) Mean Corpuscular Volume 90 fL (79-100) Mean Corpuscular Hemoglobin 29 pg (25-35) Mean Corpuscular Hemoglobin Concent 32 g/dL (31-37) Red Cell Distribution Width 15.8 % (11.5-14.5) Platelet Count 288 x10^3/uL (140-400) Neutrophils (%) (Auto) 90 % (31-73) Lymphocytes (%) (Auto) 6 % (24-48) Monocytes (%) (Auto) 4 % (0-9) Eosinophils (%) (Auto) 0 % (0-3) Basophils (%) (Auto) 1 % (0-3) Neutrophils # (Auto) 16.5 x10^3uL (1.8-7.7) Lymphocytes # (Auto) 1.0 x10^3/uL (1.0-4.8) Monocytes # (Auto) 0.7 x10^3/uL (0.0-1.1) Eosinophils # (Auto) 0.0 x10^3/uL (0.0-0.7) Basophils # (Auto) 0.1 x10^3/uL (0.0-0.2) Laboratory Tests Test 02/02/17 03:40 White Blood Count 18.3 x10^3/uL (4.0-11.0) Red Blood Count 5.24 x10^6/uL (4.30-5.70) Hemoglobin 15.2 g/dL (13.0-17.5) Hematocrit 47.1 % (39.0-53.0) Mean Corpuscular Volume 90 fL (79-100) Mean Corpuscular Hemoglobin 29 pg (25-35) Mean Corpuscular Hemoglobin Concent 32 g/dL (31-37) Red Cell Distribution Width 15.8 % (11.5-14.5) Platelet Count 288 x10^3/uL (140-400) Neutrophils (%) (Auto) 90 % (31-73) Lymphocytes (%) (Auto) 6 % (24-48) Monocytes (%) (Auto) 4 % (0-9) Eosinophils (%) (Auto) 0 % (0-3) Basophils (%) (Auto) 1 % (0-3) Neutrophils # (Auto) 16.5 x10^3uL (1.8-7.7) Lymphocytes # (Auto) 1.0 x10^3/uL (1.0-4.8) Monocytes # (Auto) 0.7 x10^3/uL (0.0-1.1) Eosinophils # (Auto) 0.0 x10^3/uL (0.0-0.7) Basophils # (Auto) 0.1 x10^3/uL (0.0-0.2) Microbiology 01/31/17 Blood Culture - Preliminary, Resulted NO GROWTH AFTER 2 DAYS Medications Current Medications Sodium Chloride (Normal Saline Flush) 10 ml 1X ONCE IV Last administered on 14:59; Start 01/31/17 at 14:45; Stop 01/31/17 at 14:46; Status DC Sodium Chloride 1,000 ml @ 1,000 mls/hr Q1H IV Last administered on 01/31/17 14:56; Start 01/31/17 at 14:33; Stop 01/31/17 at 15:32; Status DC Albuterol/ Ipratropium (Duoneb) 3 ml 1X ONCE NEB Last administered on 14:44; Start 01/31/17 at 14:45; Stop 01/31/17 at 14:46; Status DC Lorazepam (Ativan) 1 mg 1X ONCE IV Last administered on 01/31/17 14:59; Start 01/31/17 at 14:45; Stop 01/31/17 at 14:46; Status DC Methylprednisolone Sodium Succinate (SOLU-Medrol 125MG VIAL) 125 mg 1X ONCE IV Last administered on 01/31/17 14:56; Start 01/31/17 at 14:45; Stop 01/31/17 at 14:46; Status DC Aspirin (Children'S Aspirin) 324 mg 1X ONCE PO Last administered on 01/31/17 14:57; Start 01/31/17 at 14:45; Stop 01/31/17 at 14:46; Status DC Ciprofloxacin/ Dextrose 200 ml @ 200 mls/hr Q12HR IV Last administered on 02/02 08:20; Start 01/31/17 at 21:00 Ciprofloxacin/ Dextrose 200 ml @ 200 mls/hr 1X ONCE IV Last administered on 01/31/17 15:02; Start 01/31/17 at 14:45; Stop 01/31/17 at 15:44; Status DC Lisinopril (Prinivil) 20 mg DAILY PO Last administered on 02/02/17 08:32; Start 02/01/17 at 09:00 Non-Formulary Medication 1 puff Q4HRS PRN INH SHORTNESS OF BREATH; Start at 15:30; Status UNV Non-Formulary Medication 2 puff BID IH ; Start 01/31/17 at 21:00; Status UNV Albuterol/ Ipratropium (Duoneb) 3 ml Q4HRS W/A NEB Last administered on 08:03; Start 01/31/17 at 18:00; Stop 02/01/17 at 10:34; Status DC Budesonide (Pulmicort) 0.5 mg RTBID NEB ; Start 01/31/17 at 20:00; Stop at 20:00; Status DC Prednisone (Prednisone) 40 mg DAILY PO Last administered on 02/02/17 08:21; Start 02/01/17 at 09:00 Nicotine (Nicoderm Cq 21mg) 1 patch PRN DAILY PRN TD SMOKING CESSATION Last administered on 02/01/17 10:14; Start 01/31/17 at 15:30 Nicotine Polacrilex (Nicorette Gum) 1 each PRN Q1HR PRN BC SMOKING CESSATION; Start 01/31/17 at 15:30 Albuterol Sulfate (Ventolin Neb Soln) 10 mg 1X ONCE CONT NEB Last administered on 01/31/17 15:29; Start 01/31/17 at 15:30; Stop 01/31/17 at 15:31 ; Status DC Budesonide (Pulmicort) 0.5 mg RTBID NEB Last administered on 02/02/17 07:15; Start 01/31/17 at 18:00 Albuterol/ Ipratropium (Duoneb) 3 ml RTQID NEB Last administered on 02/02/17 11:31; Start 02/01/17 at 12:00 Guaifenesin (Robitussin Dm) 10 ml PRN Q6HRS PRN PO COUGH Last administered on 02/01/17 12:32; Start 02/01/17 at 10:30 Acetaminophen (Tylenol) 500 mg PRN Q6HRS PRN PO MILD PAIN / TEMP Last administered on 02/01/17 12:32; Start 02/01/17 at 11:45 Alprazolam (Xanax) 0.25 mg PRN Q8HRS PRN PO ANXIETY / AGITATION; Start at 16:00 Lorazepam (Ativan) 1 mg PRN Q4HRS PRN IV ANXIETY / AGITATION Last administered on 02/01/17 17:17; Start 02/01/17 at 16:00 Methylprednisolone Sodium Succinate (SOLU-Medrol 125MG VIAL) 125 mg 1X ONCE IV Last administered on 02/01/17 17:17; Start 02/01/17 at 17:00; Stop 02/01/17 at 17:04; Status DC Methylprednisolone Sodium Succinate (SOLU-Medrol 125MG VIAL) 125 mg 1X ONCE IV Last administered on 12/6/17at 08:21; Start 02/02/17 at 09:00; Stop 02/02/17 at 09:01; Status DC Active Scripts Active Cipro (Ciprofloxacin Hcl) 500 Mg Tablet 1 Tab PO BID Tessalon Perle (Benzonatate) 100 Mg Capsule 1 Cap PO TID Pulmicort Flexhaler (Budesonide) 90 Mcg Aer.pow.ba 90 Mcg IH BID 30 Days Ipratropium [place] 0.2 Mg/1 Ml Solution 1 Vial NEB QID Proair Hfa Inhaler (Albuterol Sulfate) 8.5 Gm Hfa.aer.ad 1 Puff INH PRN Q4HRS PRN Symbicort 160-4.5 Mcg Inhaler (Budesonide/Formoterol Fumarate) 10.2 Gm Hfa.aer.ad 2 Puff IH BID Lisinopril 20 Mg Tablet 1 Tab PO DAILY Proair Hfa Inhaler (Albuterol Sulfate) 8.5 Gm Hfa.aer.ad 1 Puff INH Q4HRS PRN Proair Hfa Inhaler (Albuterol Sulfate) 8.5 Gm Hfa.aer.ad 1 Puff INH PRN Q6HRS PRN Reported Prednisone 10 Mg Tablet 10 Mg PO DAILY Xanax (Alprazolam) 0.5 Mg Tablet 0.5 Mg PO PRN Q8HRS Vitals/I & O Vital Sign - Last 24 Hours 02/01/17 02/01/17 02/01/17 02/01/17 17:04 19:42 19:42 19:44 Pulse Ox 97 97 O2 Delivery Room Air Room Air Room Air Room Air 02/01/17 02/02/17 02/02/17 02/02/17 23:00 03:00 07:00 07:45 Temp 97.5 97.5 97.5 97.5 97.5 97.5 Pulse 73 77 72 Resp 18 18 20 B/P (MAP) 115/60 (78) 115/58 (77) 130/78 (95) Pulse Ox 95 95 96 O2 Delivery Room Air Room Air Room Air Room Air 02/02/17 02/02/17 02/02/17 08:26 08:32 11:00 Temp 95.5 95.5 Pulse 90 84 Resp 20 B/P (MAP) 134/61 149/79 (102) Pulse Ox 95 95 O2 Delivery Room Air Room Air Intake and Output 02/01/17 02/01/17 02/02/17 15:00 23:00 07:00 Intake Total 360 ml 240 ml 1160 ml Balance 360 ml 240 ml 1160 ml MINDI DURAND III DO Feb 02, 2017 15:18
== END 2017-02-02 14:15 | disposition home or self-care (01) | DRG 872 ==
LOC: ER 14:11 → 5 NORTH 15:20
PROVIDERS: ADMIT Internal Medicine; ATTEND Internal Medicine
DX: A41.9 Sepsis, unspecified organism (principal); J44.0 Chronic obstructive pulmonary disease with (acute) lower respiratory infection; Z99.81 Dependence on supplemental oxygen; J44.1 Chronic obstructive pulmonary disease with (acute) exacerbation; J20.9 Acute bronchitis, unspecified; E78.00 Pure hypercholesterolemia, unspecified; E78.5 Hyperlipidemia, unspecified; F17.210 Nicotine dependence, cigarettes, uncomplicated; I73.9 Peripheral vascular disease, unspecified; I10 Essential (primary) hypertension; Z82.49 Family history of ischemic heart disease and other diseases of the circulatory system; Z88.8 Allergy status to other drugs, medicaments and biological substances; Z79.899 Other long term (current) drug therapy; Z95.1 Presence of aortocoronary bypass graft
CPT/HCPCS: 36415; 36600; 71010; 80048; 80076; 82553; 82805; 83605; 83690; 83735; 83880; 84443; 84484; 85007; 85025; 87040; 87804; 93005; 93306; 94250; 94620; 94640; 94644; 96365; 96375; J0744; J2060; J2930; J7030; J7512; J7613; J7620; J7626; 99291-25

== ENCOUNTER 2017-03-30 12:45 | Inpatient (IN) | payer BC, MEDICAID ==
[2017-03-30 13:38] LABS: INFLUENZA A PATIENT NEGATIVE (NEGATIVE); INFLUENZA B PATIENT NEGATIVE (NEGATIVE); OBC FLU VALID
[2017-03-30 13:40] LABS: BASO % 0 % (0-3); EOS % 0 % (0-3); HEMOGLOBIN 16.2 g/dL (13.0-17.5); LYMPH % 7 % (24-48); MEAN CORPUSCULAR HEMOGLOBIN 30 pg (25-35); MEAN CORPUSCULAR HGB CONC 34 g/dL (31-37); MEAN CORPUSCULAR VOLUME 89 fL (79-100); MONO # 0.4 x10^3/uL (0.0-1.1); MONO % 3 % (0-9); NEUT # 13.7 x10^3uL (1.8-7.7); NEUT % 90 % (31-73); PLATELET COUNT 297 x10^3/uL (140-400); RED BLOOD COUNT 5.41 x10^6/uL (4.30-5.70); RED CELL DISTRIBUTION WIDTH 16.3 % (11.5-14.5); WHITE BLOOD COUNT 15.2 x10^3/uL (4.0-11.0)
[2017-03-30 13:47] LABS: ADD MAN DIFF? YES
[2017-03-30 14:00] LABS: ANION GAP 9 (6-14); BLOOD UREA NITROGEN 44 mg/dL (8-26); BUN/CREATININE RATIO 37 (6-20); CALCIUM 9.3 mg/dL (8.5-10.1); CARBON DIOXIDE 29 mmol/L (21-32); CHLORIDE 99 mmol/L (98-107); CREATININE 1.2 mg/dL (0.7-1.3); GFR 60.2; GLUCOSE 137 mg/dL (70-99); POTASSIUM 4.8 mmol/L (3.5-5.1); SODIUM 137 mmol/L (136-145)
[2017-03-30] MEDS: IPRATRPIUM/ALBUTEROL 0.5/2.5MG 3 ML NEBU. NEB ×3 (14:04→19:35)
[2017-03-30 14:07] LABS: LACTIC ACID 1.6 mmol/L (0.4-2.0); TROPONINI < 0.017 ng/mL (0.000-0.055)
[2017-03-30 14:14] LABS: ALBUMIN 3.2 g/dL (3.4-5.0); ALBUMIN/GLOBULIN RATIO 0.9 (1.0-1.7); ALK PHOS 73 U/L (46-116); ALT (SGPT) 40 U/L (16-63); AST (SGOT) 24 U/L (15-37); TOTAL BILIRUBIN 0.2 mg/dL (0.2-1.0); TOTAL PROTEIN 6.6 g/dL (6.4-8.2)
[2017-03-30 14:35] LABS: % ATYL 1 % (0-0); % BANDS 4 % (0-9); % LYMPHS 7 % (24-48); % METAS 1 % (0-0); % MONOS 6 % (0-10); % SEGS 81 % (35-66); PLT ESTIMATE ADEQUATE (ADEQUATE)
[2017-03-30] MEDS ORDERED: fentaNYL PF VIAL 100 MCG/2 ML VIAL IV ×2 (15:45→16:15)
[2017-03-30] MEDS ORDERED: ONDANSETRON PF 4 MG/2 ML VIAL. IV ×2 (15:45→16:15)
[2017-03-30] MEDS ORDERED: ACETAMINOPHEN 325 MG TABLET. PO (15:45)
[2017-03-30] MEDS: AZITHRMYCN 500MG IVPB FOR OMNI 250 ML IV (15:45)
[2017-03-30] MEDS: IOHEXOL 300 MG/ML 100ML VIAL. IV (16:08)
[2017-03-30] MEDS ORDERED: diphenhydrAMINE HCL 25 MG CAPSULE PO (16:15)
[2017-03-30] MEDS ORDERED: CCPD PATIENT. MC (16:15)
[2017-03-30] MEDS ORDERED: KETOROLAC 15 MG/ML VIAL. IV (16:15)
[2017-03-30] MEDS: ALPRAZolam 0.5 MG TABLET PO (17:59)
[2017-03-30] MEDS: guaiFENesin DM 200MG/20MG 10 ML SYRUP PO ×2 (18:00→22:15)
[2017-03-30] MEDS: HYDROcodone/APAP 5/325MG 1 TAB TABLET PO ×2 (18:00→22:16)
[2017-03-30] MEDS ORDERED: CONTRAST GIVEN MC (18:30)
[2017-03-30] MEDS: methylPREDNISolone SOD SUCC PF 40 MG/ML VIAL. IV (22:16)
[2017-03-30] MEDS: BENZONATATE 100 MG CAPSULE. PO (22:16)
[2017-03-31 05:22] LABS: ADD MAN DIFF? NO
[2017-03-31] MEDS: methylPREDNISolone SOD SUCC PF 40 MG/ML VIAL. IV ×2 (05:29→13:42)
[2017-03-31] MEDS: HYDROcodone/APAP 5/325MG 1 TAB TABLET PO ×2 (05:30→12:19)
[2017-03-31] MEDS: ALPRAZolam 0.5 MG TABLET PO (05:30)
[2017-03-31 05:35] LABS: BASO % 0 % (0-3); EOS % 0 % (0-3); HEMATOCRIT 45.6 % (39.0-53.0); HEMOGLOBIN 14.9 g/dL (13.0-17.5); LYMPH % 7 % (24-48); MEAN CORPUSCULAR HEMOGLOBIN 29 pg (25-35); MEAN CORPUSCULAR HGB CONC 33 g/dL (31-37); MEAN CORPUSCULAR VOLUME 90 fL (79-100); MONO # 0.2 x10^3/uL (0.0-1.1); MONO % 2 % (0-9); NEUT # 12.7 x10^3uL (1.8-7.7); NEUT % 91 % (31-73); PLATELET COUNT 250 x10^3/uL (140-400); RED BLOOD COUNT 5.06 x10^6/uL (4.30-5.70); RED CELL DISTRIBUTION WIDTH 16.6 % (11.5-14.5); WHITE BLOOD COUNT 13.9 x10^3/uL (4.0-11.0)
[2017-03-31] MEDS: NICOTINE 21MG PATCH. TD (05:42)
[2017-03-31 05:48] LABS: ANION GAP 3 (6-14); BLOOD UREA NITROGEN 37 mg/dL (8-26); CALCIUM 8.8 mg/dL (8.5-10.1); CARBON DIOXIDE 33 mmol/L (21-32); CHLORIDE 100 mmol/L (98-107); CREATININE 1.2 mg/dL (0.7-1.3); GFR 60.2; GLUCOSE 207 mg/dL (70-99); POTASSIUM 5.2 mmol/L (3.5-5.1); SODIUM 136 mmol/L (136-145)
[2017-03-31] MEDS: IPRATRPIUM/ALBUTEROL 0.5/2.5MG 3 ML NEBU. NEB ×2 (07:26→12:20)
[2017-03-31] MEDS: BENZONATATE 100 MG CAPSULE. PO ×2 (08:41→13:43)
[2017-03-31] MEDS: LISINOPRIL 20 MG TABLET PO (08:41)
[2017-03-31] MEDS: LIDOCAINE (700MG/PATCH) PATCH. TD (08:42)
[2017-03-31] MEDS: guaiFENesin DM 200MG/20MG 10 ML SYRUP PO ×3 (08:42→16:52)
[2017-03-31] MEDS ORDERED: BENZONATATE 100 MG CAPSULE. PO (21:00)
== END 2017-03-31 18:00 | disposition home or self-care (01) | DRG 542 ==
LOC: ER 12:45 → 5 SOUTH 15:46
DX: M48.54XA Collapsed vertebra, not elsewhere classified, thoracic region, initial encounter for fracture (principal); J96.21 Acute and chronic respiratory failure with hypoxia; R65.10 Systemic inflammatory response syndrome (SIRS) of non-infectious origin without acute organ dysfunction; Z99.81 Dependence on supplemental oxygen; J44.1 Chronic obstructive pulmonary disease with (acute) exacerbation; E44.1 Mild protein-calorie malnutrition; J96.11 Chronic respiratory failure with hypoxia; D72.829 Elevated white blood cell count, unspecified; E55.9 Vitamin D deficiency, unspecified; E78.00 Pure hypercholesterolemia, unspecified; F17.210 Nicotine dependence, cigarettes, uncomplicated; I10 Essential (primary) hypertension; I73.9 Peripheral vascular disease, unspecified; M81.0 Age-related osteoporosis without current pathological fracture; T38.0X5A Adverse effect of glucocorticoids and synthetic analogues, initial encounter; Z82.49 Family history of ischemic heart disease and other diseases of the circulatory system; Z88.8 Allergy status to other drugs, medicaments and biological substances
CPT/HCPCS: 36415; 71046; 71260; 80048; 80053; 82306; 83605; 84484; 85007; 85025; 87040; 87804; 87804-59; 93005; 94640; 94760; 96374; 99285; 99285-25; 99406; J0456; J2920; J7620; Q9967

== ENCOUNTER 2017-04-14 13:18 | Inpatient (IN) | payer BC, MEDICAID ==
[2017-04-14] MEDS: methylPREDNISolone SOD SUCC PF 125 MG/2 ML VIAL. IV (14:07)
[2017-04-14 14:11] LABS: ADD MAN DIFF? YES; BASO % 0 % (0-3); EOS % 0 % (0-3); HEMATOCRIT 43.9 % (39.0-53.0); LYMPH # 0.5 x10^3/uL (1.0-4.8); LYMPH % 2 % (24-48); MEAN CORPUSCULAR HEMOGLOBIN 31 pg (25-35); MEAN CORPUSCULAR HGB CONC 34 g/dL (31-37); MEAN CORPUSCULAR VOLUME 89 fL (79-100); MONO # 0.9 x10^3/uL (0.0-1.1); MONO % 4 % (0-9); NEUT # 19.2 x10^3uL (1.8-7.7); NEUT % 93 % (31-73); PLATELET COUNT 312 x10^3/uL (140-400); RED BLOOD COUNT 4.91 x10^6/uL (4.30-5.70); RED CELL DISTRIBUTION WIDTH 16.1 % (11.5-14.5); WHITE BLOOD COUNT 20.5 x10^3/uL (4.0-11.0)
[2017-04-14 14:14] LABS: ANION GAP 9 (6-14); BLOOD UREA NITROGEN 28 mg/dL (8-26); BUN/CREATININE RATIO 22 (6-20); CALCIUM 9.4 mg/dL (8.5-10.1); CARBON DIOXIDE 31 mmol/L (21-32); CHLORIDE 104 mmol/L (98-107); CREATININE 1.3 mg/dL (0.7-1.3); GFR 54.9; GLUCOSE 136 mg/dL (70-99); POTASSIUM 4.3 mmol/L (3.5-5.1); SODIUM 144 mmol/L (136-145)
[2017-04-14 14:17] LABS: SALIC < 2.8 mg/dL (2.8-20.0)
[2017-04-14 14:20] LABS: ALBUMIN 3.2 g/dL (3.4-5.0); ALBUMIN/GLOBULIN RATIO 0.8 (1.0-1.7); ALK PHOS 73 U/L (46-116); ALT (SGPT) 43 U/L (16-63); AST (SGOT) 21 U/L (15-37); MAGNESIUM 2.1 mg/dL (1.8-2.4); TOTAL BILIRUBIN 0.3 mg/dL (0.2-1.0)
[2017-04-14 14:21] LABS: INR 0.9 (0.8-1.1); PARTIAL THROMBOPLASTIN TIME 22 SEC (24-38); PROTHROMBIN TIME PATIENT 11.8 SEC (11.7-14.0)
[2017-04-14 14:21] LABS: TROPONINI < 0.017 ng/mL (0.000-0.055)
[2017-04-14 14:25] LABS: NT-PRO BNP 99 pg/mL (0-124)
[2017-04-14] MEDS: ALBUTEROL SULFATE 2.5 MG/3 ML NEBU. CONT NEB (14:39)
[2017-04-14] MEDS: IPRATRPIUM/ALBUTEROL 0.5/2.5MG 3 ML NEBU. NEB ×2 (14:39→20:42)
[2017-04-14 14:41] LABS: LACTIC ACID 4.1 mmol/L (0.4-2.0)
[2017-04-14 15:02] LABS: INFLUENZA A PATIENT NEGATIVE (NEGATIVE); INFLUENZA B PATIENT NEGATIVE (NEGATIVE); OBC FLU VALID
[2017-04-14] MEDS: IV NORMAL SALINE 1000ML BAG 1,000 ML IV ×4 (15:14→22:21)
[2017-04-14] MEDS ORDERED: ONDANSETRON PF 4 MG/2 ML VIAL. IV (15:15)
[2017-04-14] MEDS: PIPERACILLIN/TAZOBACTAM 3.375 GM in IV NORMAL SALINE 50ML 50 ML IV (15:38)
[2017-04-14] MEDS: VANCOMYCIN 1.75 GM in IV DEXTROSE 5 %-0.45 % NACL 500 ML IV (16:01)
[2017-04-14 16:38] LABS: % BANDS 7 % (0-9); % LYMPHS 2 % (24-48); % MONOS 2 % (0-10); % SEGS 89 % (35-66); PLT ESTIMATE ADEQUATE (ADEQUATE)
[2017-04-14 16:39] LABS: TOXIC GRANULATION SLIGHT
[2017-04-14 18:05] LABS: LACTIC ACID 4.5 mmol/L (0.4-2.0)
[2017-04-14] MEDS: VANCOMYCIN PER PHARMACY MC (20:48)
[2017-04-14] MEDS: HYDROcodone/APAP 5/325MG 1 TAB TABLET PO (22:20)
[2017-04-15 04:03] LABS: ADD MAN DIFF? NO
[2017-04-15 04:54] LABS: BASO % 0 % (0-3); EOS % 0 % (0-3); HEMATOCRIT 42.6 % (39.0-53.0); LYMPH # 0.8 x10^3/uL (1.0-4.8); LYMPH % 4 % (24-48); MEAN CORPUSCULAR HEMOGLOBIN 30 pg (25-35); MEAN CORPUSCULAR HGB CONC 33 g/dL (31-37); MEAN CORPUSCULAR VOLUME 91 fL (79-100); MONO # 1.7 x10^3/uL (0.0-1.1); MONO % 8 % (0-9); NEUT # 19.7 x10^3uL (1.8-7.7); NEUT % 89 % (31-73); PLATELET COUNT 268 x10^3/uL (140-400); RED BLOOD COUNT 4.68 x10^6/uL (4.30-5.70); RED CELL DISTRIBUTION WIDTH 16.3 % (11.5-14.5); WHITE BLOOD COUNT 22.2 x10^3/uL (4.0-11.0)
[2017-04-15] MEDS: IV NORMAL SALINE 1000ML BAG 1,000 ML IV ×3 (05:09→20:17)
[2017-04-15 05:37] LABS: ANION GAP 6 (6-14); BLOOD UREA NITROGEN 29 mg/dL (8-26); CALCIUM 8.7 mg/dL (8.5-10.1); CARBON DIOXIDE 27 mmol/L (21-32); CHLORIDE 110 mmol/L (98-107); CREATININE 1.2 mg/dL (0.7-1.3); GFR 60.2; GLUCOSE 117 mg/dL (70-99); POTASSIUM 4.6 mmol/L (3.5-5.1); SODIUM 143 mmol/L (136-145)
[2017-04-15] MEDS: IPRATRPIUM/ALBUTEROL 0.5/2.5MG 3 ML NEBU. NEB ×4 (07:23→20:10)
[2017-04-15] MEDS: ALPRAZolam 0.5 MG TABLET PO (08:11)
[2017-04-15] MEDS: LISINOPRIL 20 MG TABLET PO (08:11)
[2017-04-15 08:30] LABS: BASE EXCESS ABG -3 mmol/L (-3-3); HCO3 ABG 23 mmol/L (21-28); PCO2 ABG 46 mmHg (35-46); PH ABG 7.33 (7.35-7.45); PO2 ABG 125 mmHg (65-108); SAT O2 ABG 98 % (92-99)
[2017-04-15] MEDS ORDERED: SALIVA STIMULANT AGENT 44ML SPRAY BOTTLE. PO (11:45)
[2017-04-15] MEDS: methylPREDNISolone SOD SUCC PF 125 MG/2 ML VIAL. IV ×2 (11:52→18:45)
[2017-04-15] MEDS: FLUTICASONE 50MCG/NASAL SPRAY 16GM BOTTLE. NS (11:56)
[2017-04-15] MEDS: SODIUM CHLORIDE 0.65% NASAL SPRAY 45ML BOTTLE. NS (11:56)
[2017-04-15] MEDS: PIPERACILLIN/TAZOBACTAM 3.375 GM in IV NORMAL SALINE 50ML 50 ML IV ×2 (11:59→18:46)
[2017-04-15] MEDS: NICOTINE 21MG PATCH. TD (12:01)
[2017-04-15] MEDS: VANCOMYCIN PER PHARMACY MC (15:30)
[2017-04-15] MEDS ORDERED: diphenhydrAMINE HCL 25 MG CAPSULE PO (16:30)
[2017-04-15] MEDS: VANCOMYCIN 1 GM in IV 1/2 NORMAL SALINE 250 ML IV (16:46)
[2017-04-15] MEDS: LORazepam 0.5 MG TABLET PO ×2 (16:46→20:17)
[2017-04-15] MEDS: MORPHINE SULFATE 2 MG/ML DISP.SYRIN. IV ×2 (16:47→20:17)
[2017-04-15] MEDS ORDERED: ONDANSETRON PF 4 MG/2 ML VIAL. IV (19:00)
[2017-04-16] MEDS: methylPREDNISolone SOD SUCC PF 125 MG/2 ML VIAL. IV ×5 (00:27→23:45)
[2017-04-16] MEDS: PIPERACILLIN/TAZOBACTAM 3.375 GM in IV NORMAL SALINE 50ML 50 ML IV ×5 (00:27→23:46)
[2017-04-16] MEDS: MORPHINE SULFATE 2 MG/ML DISP.SYRIN. IV ×4 (00:27→17:56)
[2017-04-16 04:38] LABS: ADD MAN DIFF? NO
[2017-04-16 04:49] LABS: BASO % 0 % (0-3); EOS % 0 % (0-3); HEMATOCRIT 47.5 % (39.0-53.0); HEMOGLOBIN 15.1 g/dL (13.0-17.5); LYMPH # 0.4 x10^3/uL (1.0-4.8); LYMPH % 2 % (24-48); MEAN CORPUSCULAR HEMOGLOBIN 30 pg (25-35); MEAN CORPUSCULAR HGB CONC 32 g/dL (31-37); MEAN CORPUSCULAR VOLUME 93 fL (79-100); MONO # 0.5 x10^3/uL (0.0-1.1); MONO % 3 % (0-9); NEUT # 17.7 x10^3uL (1.8-7.7); NEUT % 95 % (31-73); PLATELET COUNT 277 x10^3/uL (140-400); RED BLOOD COUNT 5.13 x10^6/uL (4.30-5.70); RED CELL DISTRIBUTION WIDTH 16.7 % (11.5-14.5); WHITE BLOOD COUNT 18.5 x10^3/uL (4.0-11.0)
[2017-04-16] MEDS: IV NORMAL SALINE 1000ML BAG 1,000 ML IV ×3 (05:38→16:56)
[2017-04-16 06:45] LABS: SEDIMENTATION RATE 13 (0-15)
[2017-04-16] MEDS: IPRATRPIUM/ALBUTEROL 0.5/2.5MG 3 ML NEBU. NEB ×5 (07:58→23:10)
[2017-04-16] MEDS: LORazepam 0.5 MG TABLET PO ×2 (08:18→21:00)
[2017-04-16] MEDS: ERGOCALCIFEROL (VITAMIN D2) 50,000 UNIT CAPSULE. PO ×2 (08:18→08:21)
[2017-04-16] MEDS: NICOTINE 21MG PATCH. TD (08:19)
[2017-04-16] MEDS: LISINOPRIL 20 MG TABLET PO (08:20)
[2017-04-16] MEDS: FLUTICASONE 50MCG/NASAL SPRAY 16GM BOTTLE. NS (08:20)
[2017-04-16] MEDS: VANCOMYCIN PER PHARMACY MC ×2 (14:05→16:35)
[2017-04-16 16:34] LABS: VANC TR 7.4 mcg/mL (10.0-20.0)
[2017-04-16] MEDS: VANCOMYCIN 1 GM in IV 1/2 NORMAL SALINE 250 ML IV (16:55)
[2017-04-16] MEDS ORDERED: ATROPINE 0.5 MG/5 ML DISP.SYRIN. IV (18:00)
[2017-04-16] MEDS ORDERED: IV NORMAL SALINE 500ML BAG 500 ML IV (18:00)
[2017-04-16 18:18] LABS: BASE EXCESS COOX -1 mmol/L (-3-3); CARBON MONOXIDE 0.3 % (0.0-1.9); HCO3 COOX 28 mmol/L (21-28); METHEMOGLOBIN 0.5 % (0.0-1.9); OXYHEMOGLOBIN 97.4 %; PH COOX 7.25 (7.35-7.45); PO2 COOX 136 mmHg (65-108); SAT O2 COOX 98 % (92-99); TOTAL HEMOGLOBIN 15.1 g/dL
[2017-04-16 18:23] LABS: PCO2 COOX 67 mmHg (35-46)
[2017-04-16 18:25] LABS: FIO2 COOX 40
[2017-04-16] MEDS: LACTOBACILLUS RHAMNOSUS GG 1 CAPSULE. PO (21:00)
[2017-04-16 21:08] LABS: BASE EXCESS ABG -2 mmol/L (-3-3); HCO3 ABG 26 mmol/L (21-28); PCO2 ABG 58 mmHg (35-46); PH ABG 7.27 (7.35-7.45); PO2 ABG 85 mmHg (65-108); SAT O2 ABG 95 % (92-99)
[2017-04-16 21:23] LABS: FIO2 ABG 30
[2017-04-17] MEDS: IPRATRPIUM/ALBUTEROL 0.5/2.5MG 3 ML NEBU. NEB ×6 (03:11→23:38)
[2017-04-17] MEDS: IV NORMAL SALINE 1000ML BAG 1,000 ML IV ×4 (04:51→23:56)
[2017-04-17] MEDS: VANCOMYCIN 750 MG in IV 1/2 NORMAL SALINE 250 ML IV ×2 (04:52→16:16)
[2017-04-17] MEDS: DEXMEDETOMIDINE 200 MCG in IV NORMAL SALINE 50ML 48 ML IV ×3 (05:53→23:56)
[2017-04-17] MEDS: methylPREDNISolone SOD SUCC PF 125 MG/2 ML VIAL. IV ×4 (06:00→23:57)
[2017-04-17] MEDS: PIPERACILLIN/TAZOBACTAM 3.375 GM in IV NORMAL SALINE 50ML 50 ML IV ×4 (06:00→23:57)
[2017-04-17 08:41] LABS: BASE EXCESS ABG 3 mmol/L (-3-3); HCO3 ABG 29 mmol/L (21-28); PCO2 ABG 53 mmHg (35-46); PH ABG 7.36 (7.35-7.45); PO2 ABG 87 mmHg (65-108); SAT O2 ABG 96 % (92-99)
[2017-04-17] MEDS: BUDESONIDE 0.5 MG/2 ML NEBU. NEB ×2 (08:44→20:44)
[2017-04-17 08:48] LABS: FIO2 ABG 25
[2017-04-17] MEDS: FLUTICASONE 50MCG/NASAL SPRAY 16GM BOTTLE. NS (09:00)
[2017-04-17] MEDS: LORazepam 0.5 MG TABLET PO (09:00)
[2017-04-17] MEDS: LACTOBACILLUS RHAMNOSUS GG 1 CAPSULE. PO ×2 (09:00→21:00)
[2017-04-17] MEDS: LISINOPRIL 20 MG TABLET PO (09:00)
[2017-04-17 09:27] LABS: ADD MAN DIFF? NO
[2017-04-17 09:31] LABS: BASO # 0.1 x10^3/uL (0.0-0.2); BASO % 1 % (0-3); EOS % 0 % (0-3); HEMATOCRIT 43.9 % (39.0-53.0); HEMOGLOBIN 14.6 g/dL (13.0-17.5); LYMPH # 0.3 x10^3/uL (1.0-4.8); LYMPH % 2 % (24-48); MEAN CORPUSCULAR HEMOGLOBIN 30 pg (25-35); MEAN CORPUSCULAR HGB CONC 33 g/dL (31-37); MEAN CORPUSCULAR VOLUME 90 fL (79-100); MONO # 0.7 x10^3/uL (0.0-1.1); MONO % 4 % (0-9); NEUT # 16.9 x10^3uL (1.8-7.7); NEUT % 94 % (31-73); PLATELET COUNT 210 x10^3/uL (140-400); RED BLOOD COUNT 4.88 x10^6/uL (4.30-5.70); RED CELL DISTRIBUTION WIDTH 15.9 % (11.5-14.5); WHITE BLOOD COUNT 18.1 x10^3/uL (4.0-11.0)
[2017-04-17 09:45] LABS: ANION GAP 6 (6-14); BLOOD UREA NITROGEN 31 mg/dL (8-26); CALCIUM 8.8 mg/dL (8.5-10.1); CARBON DIOXIDE 28 mmol/L (21-32); CHLORIDE 107 mmol/L (98-107); GFR 74.3; GLUCOSE 148 mg/dL (70-99); MAGNESIUM 2.2 mg/dL (1.8-2.4); PHOSPHORUS 3.8 mg/dL (2.6-4.7); POTASSIUM 4.8 mmol/L (3.5-5.1); SODIUM 141 mmol/L (136-145)
[2017-04-17] MEDS: NICOTINE 21MG PATCH. TD (09:47)
[2017-04-17 10:01] LABS: LACTIC ACID 1.4 mmol/L (0.4-2.0)
[2017-04-17 20:09] LABS: MRSA BY PCR Negative (Negative)
[2017-04-18] MEDS: DEXMEDETOMIDINE 200 MCG in IV NORMAL SALINE 50ML 48 ML IV (02:54)
[2017-04-18 03:19] LABS: ADD MAN DIFF? NO
[2017-04-18 03:32] LABS: BASO # 0.1 x10^3/uL (0.0-0.2); BASO % 1 % (0-3); EOS % 0 % (0-3); HEMATOCRIT 43.1 % (39.0-53.0); HEMOGLOBIN 14.4 g/dL (13.0-17.5); LYMPH # 0.2 x10^3/uL (1.0-4.8); LYMPH % 1 % (24-48); MEAN CORPUSCULAR HEMOGLOBIN 30 pg (25-35); MEAN CORPUSCULAR HGB CONC 34 g/dL (31-37); MEAN CORPUSCULAR VOLUME 90 fL (79-100); MONO # 0.5 x10^3/uL (0.0-1.1); MONO % 3 % (0-9); NEUT # 14.7 x10^3uL (1.8-7.7); NEUT % 95 % (31-73); PLATELET COUNT 204 x10^3/uL (140-400); RED BLOOD COUNT 4.79 x10^6/uL (4.30-5.70); RED CELL DISTRIBUTION WIDTH 15.4 % (11.5-14.5); WHITE BLOOD COUNT 15.5 x10^3/uL (4.0-11.0)
[2017-04-18 03:41] LABS: VANC TR 13.6 mcg/mL (10.0-20.0)
[2017-04-18 03:48] LABS: ANION GAP 2 (6-14); BLOOD UREA NITROGEN 35 mg/dL (8-26); CALCIUM 8.4 mg/dL (8.5-10.1); CARBON DIOXIDE 33 mmol/L (21-32); CHLORIDE 108 mmol/L (98-107); CREATININE 1.1 mg/dL (0.7-1.3); GFR 66.6; GLUCOSE 156 mg/dL (70-99); SODIUM 143 mmol/L (136-145)
[2017-04-18] MEDS: IPRATRPIUM/ALBUTEROL 0.5/2.5MG 3 ML NEBU. NEB ×5 (04:40→20:38)
[2017-04-18] MEDS: VANCOMYCIN PER PHARMACY MC (05:22)
[2017-04-18] MEDS: VANCOMYCIN 750 MG in IV 1/2 NORMAL SALINE 250 ML IV ×2 (05:40→16:46)
[2017-04-18] MEDS: methylPREDNISolone SOD SUCC PF 125 MG/2 ML VIAL. IV ×3 (05:40→18:16)
[2017-04-18] MEDS: PIPERACILLIN/TAZOBACTAM 3.375 GM in IV NORMAL SALINE 50ML 50 ML IV ×3 (05:41→18:16)
[2017-04-18] MEDS: LACTOBACILLUS RHAMNOSUS GG 1 CAPSULE. PO ×2 (08:49→21:04)
[2017-04-18] MEDS: NICOTINE 21MG PATCH. TD (08:50)
[2017-04-18] MEDS: FLUTICASONE 50MCG/NASAL SPRAY 16GM BOTTLE. NS (08:54)
[2017-04-18] MEDS: BUDESONIDE 0.5 MG/2 ML NEBU. NEB ×2 (09:02→20:38)
[2017-04-18] MEDS ORDERED: MORPHINE SULFATE 2 MG/ML DISP.SYRIN. IV (10:30)
[2017-04-18] MEDS: IV NORMAL SALINE 1000ML BAG 1,000 ML IV ×2 (11:23→23:13)
[2017-04-18 11:45] LABS: BASE EXCESS ABG 4 mmol/L (-3-3); HCO3 ABG 31 mmol/L (21-28); PCO2 ABG 57 mmHg (35-46); PH ABG 7.35 (7.35-7.45); PO2 ABG 124 mmHg (65-108); SAT O2 ABG 98 % (92-99)
[2017-04-18 11:46] LABS: FIO2 ABG 32
[2017-04-18] MEDS: MORPHINE SULFATE 4 MG/ML DISP.SYRIN. IV (13:21)
[2017-04-18] MEDS: LABETALOL 20 MG/4 ML DISP.SYRIN. IVP (16:48)
[2017-04-19] MEDS: IPRATRPIUM/ALBUTEROL 0.5/2.5MG 3 ML NEBU. NEB ×7 (00:23→22:51)
[2017-04-19] MEDS: methylPREDNISolone SOD SUCC PF 125 MG/2 ML VIAL. IV ×4 (00:42→18:10)
[2017-04-19] MEDS: PIPERACILLIN/TAZOBACTAM 3.375 GM in IV NORMAL SALINE 50ML 50 ML IV ×4 (00:42→18:10)
[2017-04-19 05:03] LABS: ADD MAN DIFF? NO
[2017-04-19] MEDS: VANCOMYCIN 750 MG in IV 1/2 NORMAL SALINE 250 ML IV (05:07)
[2017-04-19 05:17] LABS: BASO # 0.1 x10^3/uL (0.0-0.2); BASO % 1 % (0-3); EOS % 0 % (0-3); HEMATOCRIT 41.8 % (39.0-53.0); HEMOGLOBIN 13.9 g/dL (13.0-17.5); LYMPH # 0.4 x10^3/uL (1.0-4.8); LYMPH % 2 % (24-48); MEAN CORPUSCULAR HEMOGLOBIN 30 pg (25-35); MEAN CORPUSCULAR HGB CONC 33 g/dL (31-37); MEAN CORPUSCULAR VOLUME 91 fL (79-100); MONO # 0.6 x10^3/uL (0.0-1.1); MONO % 3 % (0-9); NEUT # 16.3 x10^3uL (1.8-7.7); NEUT % 94 % (31-73); PLATELET COUNT 170 x10^3/uL (140-400); RED BLOOD COUNT 4.59 x10^6/uL (4.30-5.70); RED CELL DISTRIBUTION WIDTH 16.1 % (11.5-14.5); WHITE BLOOD COUNT 17.4 x10^3/uL (4.0-11.0)
[2017-04-19 05:46] LABS: ANION GAP 3 (6-14); BLOOD UREA NITROGEN 35 mg/dL (8-26); CALCIUM 8.4 mg/dL (8.5-10.1); CARBON DIOXIDE 34 mmol/L (21-32); CHLORIDE 107 mmol/L (98-107); CREATININE 0.8 mg/dL (0.7-1.3); GFR 96.1; GLUCOSE 149 mg/dL (70-99); SODIUM 144 mmol/L (136-145)
[2017-04-19] MEDS: IV NORMAL SALINE 1000ML BAG 1,000 ML IV (07:23)
[2017-04-19] MEDS: BUDESONIDE 0.5 MG/2 ML NEBU. NEB ×2 (08:13→19:35)
[2017-04-19] MEDS: LACTOBACILLUS RHAMNOSUS GG 1 CAPSULE. PO ×2 (09:46→20:48)
[2017-04-19] MEDS: FLUTICASONE 50MCG/NASAL SPRAY 16GM BOTTLE. NS (09:46)
[2017-04-19] MEDS: NICOTINE 21MG PATCH. TD (09:50)
[2017-04-19] MEDS: ACETAMINOPHEN 500 MG TABLET PO (14:52)
[2017-04-19] MEDS: ENOXAPARIN 40 MG/0.4 ML SYRINGE. SQ (18:10)
[2017-04-19] MEDS: LABETALOL 20 MG/4 ML DISP.SYRIN. IVP (18:11)
[2017-04-20] MEDS: PIPERACILLIN/TAZOBACTAM 3.375 GM in IV NORMAL SALINE 50ML 50 ML IV ×4 (00:23→17:22)
[2017-04-20] MEDS: methylPREDNISolone SOD SUCC PF 125 MG/2 ML VIAL. IV ×4 (00:24→17:22)
[2017-04-20] MEDS: IPRATRPIUM/ALBUTEROL 0.5/2.5MG 3 ML NEBU. NEB ×5 (02:53→19:29)
[2017-04-20] MEDS: BUDESONIDE 0.5 MG/2 ML NEBU. NEB ×2 (07:32→19:29)
[2017-04-20] MEDS: NICOTINE 21MG PATCH. TD (08:14)
[2017-04-20] MEDS: FLUTICASONE 50MCG/NASAL SPRAY 16GM BOTTLE. NS (08:15)
[2017-04-20] MEDS: LACTOBACILLUS RHAMNOSUS GG 1 CAPSULE. PO ×2 (08:15→21:14)
[2017-04-20] MEDS: HYDROcodone/APAP 5/325MG 1 TAB TABLET PO ×2 (08:19→21:14)
[2017-04-20] MEDS: ENOXAPARIN 40 MG/0.4 ML SYRINGE. SQ (17:23)
[2017-04-20] MEDS: CETIRIZINE HCL 10 MG TABLET. PO (22:13)
[2017-04-21] MEDS: methylPREDNISolone SOD SUCC PF 125 MG/2 ML VIAL. IV ×2 (00:10→06:10)
[2017-04-21] MEDS: PIPERACILLIN/TAZOBACTAM 3.375 GM in IV NORMAL SALINE 50ML 50 ML IV ×2 (00:11→06:09)
[2017-04-21] MEDS: IPRATRPIUM/ALBUTEROL 0.5/2.5MG 3 ML NEBU. NEB ×7 (00:29→23:54)
[2017-04-21] MEDS: LABETALOL 20 MG/4 ML DISP.SYRIN. IVP (03:47)
[2017-04-21] MEDS: BUDESONIDE 0.5 MG/2 ML NEBU. NEB ×2 (07:56→20:12)
[2017-04-21] MEDS: FLUTICASONE 50MCG/NASAL SPRAY 16GM BOTTLE. NS (09:33)
[2017-04-21] MEDS: NICOTINE 21MG PATCH. TD (09:33)
[2017-04-21] MEDS: CETIRIZINE HCL 10 MG TABLET. PO (09:33)
[2017-04-21] MEDS: LACTOBACILLUS RHAMNOSUS GG 1 CAPSULE. PO ×2 (09:33→21:12)
[2017-04-21 12:42] LABS: HEMATOCRIT 43.6 % (39.0-53.0); HEMOGLOBIN 14.3 g/dL (13.0-17.5); MEAN CORPUSCULAR HEMOGLOBIN 30 pg (25-35); MEAN CORPUSCULAR HGB CONC 33 g/dL (31-37); MEAN CORPUSCULAR VOLUME 90 fL (79-100); PLATELET COUNT 226 x10^3/uL (140-400); RED BLOOD COUNT 4.84 x10^6/uL (4.30-5.70); RED CELL DISTRIBUTION WIDTH 15.4 % (11.5-14.5); WHITE BLOOD COUNT 19.3 x10^3/uL (4.0-11.0)
[2017-04-21] MEDS: methylPREDNISolone SOD SUCC PF 40 MG/ML VIAL. IV ×3 (13:31→23:50)
[2017-04-21] MEDS: ACETAMINOPHEN 500 MG TABLET PO (13:36)
[2017-04-21] MEDS: ENOXAPARIN 40 MG/0.4 ML SYRINGE. SQ (16:33)
[2017-04-21] MEDS: FUROSEMIDE 40 MG/4 ML VIAL. IVP (16:37)
[2017-04-21] MEDS: HYDROcodone/APAP 5/325MG 1 TAB TABLET PO (21:12)
[2017-04-21] MEDS: AMOXICILLIN/K CLAV 875/125MG TABLET. PO (21:12)
[2017-04-22] MEDS: IPRATRPIUM/ALBUTEROL 0.5/2.5MG 3 ML NEBU. NEB ×3 (04:31→11:54)
[2017-04-22] MEDS: methylPREDNISolone SOD SUCC PF 40 MG/ML VIAL. IV ×2 (06:33→11:30)
[2017-04-22] MEDS: BUDESONIDE 0.5 MG/2 ML NEBU. NEB (07:12)
[2017-04-22] MEDS: FUROSEMIDE 40 MG/4 ML VIAL. IVP (09:00)
[2017-04-22] MEDS: LACTOBACILLUS RHAMNOSUS GG 1 CAPSULE. PO (11:30)
[2017-04-22] MEDS: HYDROcodone/APAP 5/325MG 1 TAB TABLET PO (11:30)
[2017-04-22] MEDS: AMOXICILLIN/K CLAV 875/125MG TABLET. PO (11:30)
[2017-04-22] MEDS: CETIRIZINE HCL 10 MG TABLET. PO (11:30)
[2017-04-22] MEDS: NICOTINE 21MG PATCH. TD (11:30)
[2017-04-22] MEDS: FLUTICASONE 50MCG/NASAL SPRAY 16GM BOTTLE. NS (11:31)
== END 2017-04-22 13:59 | DRG 871 ==
LOC: 1 WEST ICU 04-16 13:11 → 5 NORTH 04-21 21:00 → ER 13:18 → 5 NORTH 04-19 22:30 → ED HOLD 14:58 → 6 SOUTH 19:00
PROC: 5A09457 Assistance with Respiratory Ventilation, 24-96 Consecutive Hours, Continuous Positive Airway Pressure (ICD-10-PCS; principal; 2017-04-14)
PROC: 5A09357 Assistance with Respiratory Ventilation, Less than 24 Consecutive Hours, Continuous Positive Airway Pressure (ICD-10-PCS; 2017-04-14)
DX: A41.9 Sepsis, unspecified organism (principal); J96.21 Acute and chronic respiratory failure with hypoxia; G93.41 Metabolic encephalopathy; J18.9 Pneumonia, unspecified organism; J96.22 Acute and chronic respiratory failure with hypercapnia; J44.0 Chronic obstructive pulmonary disease with (acute) lower respiratory infection; J44.1 Chronic obstructive pulmonary disease with (acute) exacerbation; Z99.81 Dependence on supplemental oxygen; T38.0X5A Adverse effect of glucocorticoids and synthetic analogues, initial encounter; F41.9 Anxiety disorder, unspecified; E78.00 Pure hypercholesterolemia, unspecified; E78.5 Hyperlipidemia, unspecified; F17.200 Nicotine dependence, unspecified, uncomplicated; I10 Essential (primary) hypertension; I73.9 Peripheral vascular disease, unspecified; Z66 Do not resuscitate; Z83.3 Family history of diabetes mellitus; Z88.8 Allergy status to other drugs, medicaments and biological substances; Z60.2 Problems related to living alone; Z51.5 Encounter for palliative care
CPT/HCPCS: 36415; 36600; 71045; 80048; 80053; 80202; 80329; 82805; 83605; 83735; 83880; 84100; 84484; 85007; 85025; 85027; 85610; 85651; 85730; 87040; 87641; 87804; 87804-59; 93005; 94640; 94644; 94660; 94667; 94668; 94760; 96365; 96366; 96367; 96375; 97162-GP; 97166-GO; 97530-GO; 97530-GP; 97535-GO; 99291; 99291-25; 99406; J1650; J1940; J2060; J2270; J2543; J2920; J2930; J3370; J3490; J7030; J7613; J7620; J7626

== ENCOUNTER 2018-04-27 21:24 | Emergency (ER) | payer BC, MEDICAID, MEDICARE ==
[~2018-04-27] VITALS: Ht 165.1 cm; Wt 68.0 kg
[~2018-04-27 21:24] MED LIST changes: +ALBU2.5V8 INH; +ALPR0.5T PO; +BENZ100C PO; +BUDE90AE IH; +HYDR-3164 PO; -HYDR-971 PO; +IBUP-1007 PO; -PROAIR HFA8.5 GM INH
[2018-04-27 21:36] VITALS: BP 161/92
== END 2018-04-27 22:15 | disposition left against medical advice (07) ==
LOC: ER 21:24
DX: R06.02 Shortness of breath (principal); Z53.21 Procedure and treatment not carried out due to patient leaving prior to being seen by health care provider